=== PATIENT | female | born 1965 | race Caucasian/White ===

== ENCOUNTER 2018-04-15 09:30 | Inpatient (IN) | payer OTHER ==
--- NOTE | 2018-04-15 09:37 | ED ---
General Adult HPI - General Stated complaint: chest pain Time Seen by Provider: 04/15/18 09:34 Source: patient, EMS, RN notes reviewed, old records reviewed - History of Present Illness Initial comments: 52-year-old female with history of coronary artery bypass graft approximately 3 years ago presents for sudden onset chest pain. Patient has been dealing with constipation, she was on the toilet straining for bowel movement and developed sharp substernal chest pain which radiated to her neck. She states that pain in her neck was more of a pressure but her chest pain was very sharp. She was complaining of some nausea, no vomiting. Endocrine the patient she was very diaphoretic. EMS transported the patient, initial blood pressure was 190 systolic, patient was 10 out of 10 pain and diaphoretic. Pain is subsided at this time after nitroglycerin. She states that her first heart attack was similar to this pain although she did have some squeezing pain and pressure in her neck with her second heart attack. Patient states her pain is improved at this time. She has no abdominal pain. No back pain. No radiating pain to her arms. Patient is a current smoker. - Related Data Home Medications Medication Instructions Recorded Confirmed ALPRAZolam [Xanax] 0.5 mg PO BID 04/15/18 04/15/18 Ciprofloxacin HCl [Cipro] 500 mg PO Q12HR 04/15/18 04/15/18 Furosemide [Lasix] 40 mg PO BID 04/15/18 04/15/18 HYDROcodone/APAP 10-325MG [[place] 1 tab PO Q6HR PRN 04/15/18 04/15/18 10-325] Ibuprofen [Motrin] 600 mg PO Q6HR PRN 04/15/18 04/15/18 Lisinopril [Zestril] 20 mg PO BID 04/15/18 04/15/18 Metoprolol Tartrate [Lopressor] 100 mg PO BID 04/15/18 04/15/18 Simvastatin [Zocor] 10 mg PO HS 04/15/18 04/15/18 amLODIPine [Norvasc] 5 mg PO DAILY 04/15/18 04/15/18 Allergies Allergy/AdvReac Type Severity Reaction Status Date / Time clopidogrel [From Plavix] Allergy Rash/Hives Verified 04/15/18 10:10 sulfamethoxazole Allergy Vomiting Verified 04/15/18 10:10 [From Bactrim] Tetracyclines Allergy Vomiting Verified 04/15/18 10:10 trimethoprim [From Bactrim] Allergy Vomiting Verified 04/15/18 10:10 Review of Systems ROS Statement: Those systems with pertinent positive or pertinent negative responses have been documented in the HPI. ROS Other: All systems not noted in ROS Statement are negative. General Exam General appearance: alert, in no apparent distress Head exam: Present: atraumatic, normocephalic Eye exam: Present: normal appearance, PERRL Neck exam: Present: normal inspection. Absent: tenderness, meningismus Respiratory exam: Present: normal lung sounds bilaterally. Absent: respiratory distress, wheezes Cardiovascular Exam: Present: regular rate, normal rhythm GI/Abdominal exam: Present: soft. Absent: distended, tenderness Extremities exam: Present: normal inspection, normal capillary refill. Absent: pedal edema Neurological exam: Present: alert, oriented X3, CN II-XII intact. Absent: motor sensory deficit Psychiatric exam: Present: normal affect, normal mood Skin exam: Present: warm, intact, diaphoretic. Absent: cyanosis Course Vital Signs 04/15/18 04/15/18 04/15/18 09:41 10:15 11:40 Temperature 98.2 F Pulse Rate 60 54 L 58 L Respiratory 18 18 18 Rate Blood Pressure 130/72 117/79 114/71 O2 Sat by Pulse 98 99 Oximetry - Reevaluation(s) Reevaluation #1: 04/15/18 12:30 On reevaluation, patient's blood pressure stable, she has minimal pain. EKG Findings - EKG Comments: EKG Findings:: EKG shows sinus bradycardia with inferior infarct, Q wave and T wave inversion. No ST segment elevation. Rate of 53 [place] interval 152, QRS duration 102, QTC 399 this Q waves and T-wave inversion in inferior leads is new compared to EKG in January. Medical Decision Making - Medical Decision Making 52-year-old female presenting with sudden onset of sharp anterior chest pain. According to EMS the patient was diaphoretic and hypertensive. Given the sudden onset of sharp pain, CT angiography was obtained, this is negative for dissection or aneurysm. Patient's EKG does show ischemic changes. Laboratory studies reveal normal hemoglobin of 14.4, white blood cell count mildly elevated total 0.7, troponin is mildly elevated at 0.04, electrolytes within normal limits. Patient is placed on heparin, given aspirin. She is nearly chest pain-free on reevaluation. She will be admitted for serial cardiac enzymes and cardiology consultation. Case discussed with Dr. Sutton, he will accept admission - Lab Data Result diagrams: 04/15/18 09:57 04/15/18 09:57 Lab Results 04/15/18 04/15/18 04/15/18 Range/Units 09:57 09:57 09:57 WBC 12.7 H (3.8-10.6) k/uL RBC 5.00 (3.80-5.40) m/uL Hgb 14.4 (11.4-16.0) gm/dL Hct 44.0 (34.0-46.0) % MCV 88.1 (80.0-100.0) fL MCH 28.8 (25.0-35.0) pg MCHC 32.7 (31.0-37.0) g/dL RDW 14.5 (11.5-15.5) % Plt Count 457 H (150-450) k/uL Neutrophils % 64 % Lymphocytes % 24 % Monocytes % 7 % Eosinophils % 4 % Basophils % 0 % Neutrophils # 8.1 H (1.3-7.7) k/uL Lymphocytes # 3.0 (1.0-4.8) k/uL Monocytes # 0.9 (0-1.0) k/uL Eosinophils # 0.5 (0-0.7) k/uL Basophils # 0.1 (0-0.2) k/uL PT (9.0-12.0) sec INR (<1.2) APTT (22.0-30.0) sec Sodium 141 (137-145) mmol/L Potassium 4.0 (3.5-5.1) mmol/L Chloride 106 (98-107) mmol/L Carbon Dioxide 24 (22-30) mmol/L Anion Gap 11 mmol/L BUN 21 H (7-17) mg/dL Creatinine 0.73 (0.52-1.04) mg/dL Est GFR (CKD-EPI)AfAm >90 (>60 ml/min/1.73 sqM) Est GFR (CKD-EPI)NonAf >90 (>60 ml/min/1.73 sqM) Glucose 100 H (74-99) mg/dL Calcium 9.6 (8.4-10.2) mg/dL Magnesium 2.1 (1.6-2.3) mg/dL Total Bilirubin 0.4 (0.2-1.3) mg/dL AST 22 (14-36) U/L ALT 33 (9-52) U/L Alkaline Phosphatase 77 (38-126) U/L Total Creatine Kinase 53 (30-135) U/L CK-MB (CK-2) 0.5 (0.0-2.4) ng/mL CK-MB (CK-2) Rel Index 0.9 Troponin I 0.040 H* (0.000-0.034) ng/mL NT-Pro-B Natriuret Pep pg/mL Total Protein 6.4 (6.3-8.2) g/dL Albumin 3.8 (3.5-5.0) g/dL Lipase 103 (23-300) U/L 04/15/18 04/15/18 Range/Units 09:57 09:57 WBC (3.8-10.6) k/uL RBC (3.80-5.40) m/uL Hgb (11.4-16.0) gm/dL Hct (34.0-46.0) % MCV (80.0-100.0) fL MCH (25.0-35.0) pg MCHC (31.0-37.0) g/dL RDW (11.5-15.5) % Plt Count (150-450) k/uL Neutrophils % % Lymphocytes % % Monocytes % % Eosinophils % % Basophils % % Neutrophils # (1.3-7.7) k/uL Lymphocytes # (1.0-4.8) k/uL Monocytes # (0-1.0) k/uL Eosinophils # (0-0.7) k/uL Basophils # (0-0.2) k/uL PT 9.8 (9.0-12.0) sec INR 1.0 (<1.2) APTT 24.3 (22.0-30.0) sec Sodium (137-145) mmol/L Potassium (3.5-5.1) mmol/L Chloride (98-107) mmol/L Carbon Dioxide (22-30) mmol/L Anion Gap mmol/L BUN (7-17) mg/dL Creatinine (0.52-1.04) mg/dL Est GFR (CKD-EPI)AfAm (>60 ml/min/1.73 sqM) Est GFR (CKD-EPI)NonAf (>60 ml/min/1.73 sqM) Glucose (74-99) mg/dL Calcium (8.4-10.2) mg/dL Magnesium (1.6-2.3) mg/dL Total Bilirubin (0.2-1.3) mg/dL AST (14-36) U/L ALT (9-52) U/L Alkaline Phosphatase (38-126) U/L Total Creatine Kinase (30-135) U/L CK-MB (CK-2) (0.0-2.4) ng/mL CK-MB (CK-2) Rel Index Troponin I (0.000-0.034) ng/mL NT-Pro-B Natriuret Pep 168 pg/mL Total Protein (6.3-8.2) g/dL Albumin (3.5-5.0) g/dL Lipase (23-300) U/L Critical Care Time Critical Care Time: Yes Total Critical Care Time: 35 Disposition Clinical Impression: NSTEMI (non-ST elevated myocardial infarction) Disposition: ADMITTED IP TO THIS [facility] Condition: Stable Is patient prescribed a controlled substance at d/c from ED?: No Referrals: Govind Houser MD [Primary Care Provider] - 1-2 days Decision to Admit Reason: Admit from EC Decision Date: 04/15/18 Decision Time: 12:33
[2018-04-15 10:22] LABS: Basophils # (A) 0.1 k/uL (0-0.2); Basophils % (A) 0 %; Eosinophils # (A) 0.5 k/uL (0-0.7); Eosinophils % (A) 4 %; HGB 14.4 gm/dL (11.4-16.0); Lymphocytes % (A) 24 %; MCH 28.8 pg (25.0-35.0); MCHC 32.7 g/dL (31.0-37.0); MCV 88.1 fL (80.0-100.0); Mean Platelet Volume 6.7; Monocytes # (A) 0.9 k/uL (0-1.0); Monocytes % (A) 7 %; Neutrophils # (A) 8.1 k/uL (1.3-7.7); Neutrophils % (A) 64 %; Platelet Count 457 k/uL (150-450); RDW 14.5 % (11.5-15.5); WBC 12.7 k/uL (3.8-10.6)
[2018-04-15 10:31] LABS: Partial Thromboplastin Time 24.3 sec (22.0-30.0); Prothrombin Time 9.8 sec (9.0-12.0)
--- NOTE | 2018-04-15 10:31 | XR ---
EXAMINATION TYPE: XR chest 2V DATE OF EXAM: 04/15/2018 COMPARISON: NONE INDICATION: Chest pain TECHNIQUE: Frontal and lateral views of the chest are obtained. FINDINGS: The heart size is normal. The pulmonary vasculature is normal. The lungs are clear. Sternotomy wires are present from previous CABG IMPRESSION: 1. No acute pulmonary process.
[2018-04-15 10:35] LABS: ALT 33 U/L (9-52); AST 22 U/L (14-36); Albumin 3.8 g/dL (3.5-5.0); Alkaline Phosphatase 77 U/L (38-126); Anion Gap 11 mmol/L; Blood Urea Nitrogen 21 mg/dL (7-17); Calcium 9.6 mg/dL (8.4-10.2); Carbon Dioxide 24 mmol/L (22-30); Chloride 106 mmol/L (98-107); Glucose 100 mg/dL (74-99); Lipase 103 U/L (23-300); Magnesium 2.1 mg/dL (1.6-2.3); Sodium 141 mmol/L (137-145); Total Bilirubin 0.4 mg/dL (0.2-1.3); Total Protein 6.4 g/dL (6.3-8.2)
[2018-04-15] MEDS ORDERED: RX INFO: IV CONTRAST WAS GIVEN 1 EACH MISC MISCELLANE PRN (10:51)
[2018-04-15 11:04] LABS: Creatine Kinase MB 0.5 ng/mL (0.0-2.4)
[2018-04-15 11:09] LABS: Troponin I 0.04 ng/mL (0.000-0.034)
--- NOTE | 2018-04-15 11:58 | CT ---
EXAMINATION TYPE: CT angio thoracic/abd aorta DATE OF EXAM: 04/15/2018 COMPARISON: NONE HISTORY: Chest pain CT DLP: 1048.4 mGycm CONTRAST: CTA thoracic and abdominal aorta with 3-D reconstruction is performed and without and with IV Contras t, patient injected with 100 ml mL of Isovue 370. Contrast CTA of the thoracic and abdominal aorta was performed from the lung apex through the base of the pelvis. 3-D reconstruction imaging obtained at a separate workstation. CT Chest: THORACIC AORTA: There is no evidence for aneurysm. No dissection or mediastinal hematoma. Mild ath eromatous changes are seen. LUNGS: The lungs are clear and free of infiltrate or atelectasis. No pulmonary nodule or mass is det ected. No pleural effusion or CT evidence of interstitial lung disease. MEDIASTINUM: The heart is not enlarged. No evidence for mediastinal mass or adenopathy. HILAR STRUCTURES: No evidence for mass. No hilar adenopathy is appreciated. OTHER: No significant abnormality. CONTRAST CT ABDOMEN AND PELVIS ABDOMINAL AORTA: No evidence for abdominal aortic aneurysm. There is irregular soft plaque noted thr oughout the abdominal aorta. Bilateral common iliac artery stents are in place. Atheromatous changes are seen throughout the bilateral iliac vessels No dissection. LIVER/GB- No significant abnormality is seen. Cholecystectomy clips are in place. PANCREAS- No significant abnormality is seen. SPLEEN- No significant abnormality is seen. ADRENALS- No significant abnormality is seen. KIDNEYS/BLADDER-nonobstructing left-sided renal calculi seen. BOWEL- No Significant abnormality GENITAL ORGANS: No gross abnormality seen. LYMPH NODES- No greater than 1cm abdominal or pelvic lymph nodes areappreciated. OSSEOUS STRUCTURES- No significant abnormality is seen. OTHER- No significant abnormality is seen. IMPRESSION- 1. No evidence for aneurysm or dissection. 2. Soft plaque scattered throughout the abdominal aorta.
[2018-04-15] MEDS ORDERED: HEPARIN SODIUM,PORCINE 5,000 UNIT/ML 1 ML VIAL IV ONE (12:06)
[2018-04-15] MEDS ORDERED: HEPARIN SODIUM,PORCINE 5,000 UNIT/ML 1 ML VIAL IV PRN (12:06)
[2018-04-15] MEDS ORDERED: ASPIRIN 325 MG TAB PO STA (12:28)
[2018-04-15] MEDS: HEPARIN SODIUM,PORCINE/D5W PMX 25,000 UNIT in DEXTROSE/WATER 1 500ML.BAG IV SCH (12:28)
[2018-04-15] MEDS ORDERED: NALOXONE 0.4 MG/ML 1 ML VIAL IV PRN (12:28)
[2018-04-15] MEDS ORDERED: NITROGLYCERIN SL TABS 0.4 MG TAB SUBLINGUAL PRN (12:28)
[2018-04-15] MEDS ORDERED: MORPHINE SULFATE 2 MG/ML SYRINGE IV PRN (12:28)
[2018-04-15] MEDS ORDERED: IBUPROFEN 600 MG TAB PO PRN (12:57)
--- NOTE | 2018-04-15 15:03 | P.HPIM ---
History of Present Illness H&P Date: 04/15/18 Chief Complaint: Chest pain This is a 52-year-old female patient of Dr. Houser with past medical history of coronary artery disease status post 5 vessel CABG at [facility], hypertension, hyperlipidemia, frequent urinary tract infections, migraine headaches, fibromyalgia, anxiety. 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 Patient states that she has had trouble with kidney stones and has been taking [place] and was having constipation issues use a fleets enema when she was in the bathroom she developed chest pain that was tightness along with sweats. He denies having any chest pain with physical activity prior to this. EMS obtained a systolic blood pressure of 190 and her pain was a 10 out of 10. Patient states that her pain improved after receiving 3 nitroglycerin and aspirin. In the emergency center, her white count was 12.7 , hemoglobin 14.4, platelet count 457, creatinine was 0.73. Initial troponin was 0.043. She was afebrile. She was started on a heparin drip, aspirin, nitroglycerin sublingually and morphine and admitted to the selective care unit and cardiology consult was requested. Review of Systems All systems: negative Constitutional: Denies anorexia, Denies chills, Denies fever, Denies lethargy, Denies malaise, Denies poor appetite, Denies weakness Eyes: denies blurred vision, denies pain Ears, nose, mouth and throat: Denies dental pain, Denies headache, Denies mouth pain, Denies sore throat, Denies vertigo Cardiovascular: Reports chest pain, Denies decreased exercise tolerance, Denies dyspnea on exertion, Denies edema, Denies leg edema, Denies shortness of breath , Denies syncope Respiratory: Denies cough, Denies cough with sputum, Denies dyspnea, Denies excessive sputum, Denies hemoptysis, Denies home oxygen, Denies wheezing Gastrointestinal: Denies abdominal pain, Denies diarrhea, Denies nausea, Denies vomiting Genitourinary: Denies dysuria, Denies hematuria Musculoskeletal: Denies myalgias Integumentary: Denies pruritus, Denies rash Neurological: Denies numbness, Denies weakness Psychiatric: Denies anxiety, Denies depression Endocrine: Denies fatigue, Denies weight change Past Medical History Past Medical History: Coronary Artery Disease (CAD), Chest Pain / Angina, Hearing Disorder / Deafness, Hyperlipidemia, Hypertension, Myocardial Infarction (OK), Osteoarthritis (OA), Pneumonia, Renal Disease Additional Past Medical History / Comment(s): Pt states she is currently being tx with cipro for UTI, MIs in , occasional L leg edema since CABG with L leg vein harvesting, recurrent nephrolithiasis with surgical removal, past utis, arthritis bilateral hands and L knee, deaf L ear. Last Myocardial Infarction Date:: 2014 History of Any Multi-Drug Resistant Organisms: None Reported Past Surgical History: Adenoidectomy, Section, Cholecystectomy, Coronary Bypass/CABG, Heart Catheterization, Heart Catheterization With Stent, Hysterectomy, Tonsillectomy, Tubal Ligation Additional Past Surgical History / Comment(s): 11/2014 CABG 5 vessels at [facility], PCIs with a total of 6 or 7 stents at [facility], lithotripsies x 3, colonoscopy-normal, bilateral knee arthroscopies, Past Anesthesia/Blood Transfusion Reactions: No Reported Reaction, Motion Sickness Date of Last Stent Placement:: unkn Smoking Status: Current every day smoker Additional Past Alcohol Use History / Comment(s): Patient is a smoker of three- quarter to 1 pack per day since she was 15 years of age. She denies any alcohol use. 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 - Past Family History Father History Unknown: Yes Additional Family Medical History / Comment(s): Patient does not know anything about her father and has no contact with him. Mother Family Medical History: Cancer, Congestive Heart Failure (CHF), Dementia, Diabetes Mellitus, Fibromyalgia, Skin Disorder Additional Family Medical History / Comment(s): Mother is alive at age 73 with history of Obesity, stasis dermatitis, breast cancer with bilateral mastectomies. Son(s) Additional Family Medical History / Comment(s): Patient has one son with no major medical problems. Patient does not have any brothers or sisters. Medications and Allergies Home Medications Medication Instructions Recorded Confirmed Type ALPRAZolam [Xanax] 0.5 mg PO BID 04/15/18 04/15/18 History Ciprofloxacin HCl [Cipro] 500 mg PO Q12HR 04/15/18 04/15/18 History Furosemide [Lasix] 40 mg PO BID 04/15/18 04/15/18 History HYDROcodone/APAP 10-325MG [[place] 1 tab PO Q6HR PRN 04/15/18 04/15/18 History 10-325] Ibuprofen [Motrin] 600 mg PO Q6HR PRN 04/15/18 04/15/18 History Lisinopril [Zestril] 20 mg PO BID 04/15/18 04/15/18 History Metoprolol Tartrate [Lopressor] 100 mg PO BID 04/15/18 04/15/18 History Simvastatin [Zocor] 10 mg PO HS 04/15/18 04/15/18 History Tamsulosin HCl [Flomax] 0.4 mg PO DAILY 04/15/18 04/15/18 History amLODIPine [Norvasc] 5 mg PO DAILY 04/15/18 04/15/18 History Allergies Allergy/AdvReac Type Severity Reaction Status Date / Time clopidogrel [From Plavix] Allergy Rash/Hives Verified 04/15/18 10:10 sulfamethoxazole Allergy Vomiting Verified 04/15/18 10:10 [From Bactrim] Tetracyclines Allergy Vomiting Verified 04/15/18 10:10 trimethoprim [From Bactrim] Allergy Vomiting Verified 04/15/18 10:10 Physical Exam Vitals: Vital Signs Temp Pulse Pulse Resp BP BP Pulse Ox 04/15/18 13:25 96.9 F L 64 16 131/83 100 04/15/18 13:02 97.4 F L 04/15/18 11:40 58 L 18 114/71 99 04/15/18 10:15 54 L 18 117/79 04/15/18 09:41 98.2 F 60 18 130/72 98 Intake and Output 04/14/18 04/15/18 04/15/18 22:59 06:59 14:59 Other: Weight 68.039 kg Gen: This is a 52-year-old female patient. She is sitting up in bed and appears to be comfortable and in no acute distress. Patient is currently pain-free. HEENT: Head is atraumatic, normocephalic. Pupils equal, round. Sclerae is anicteric. NECK: Supple. No JVD. No lymphadenopathy. No thyromegaly. LUNGS: Clear to auscultation. No wheezes or rhonchi. No intercostal retractions. HEART: Regular rate and rhythm. Systolic murmur. ABDOMEN: Soft. Bowel sounds are present. No masses. No tenderness. EXTREMITIES: No pedal edema. No calf tenderness. Dorsalis pedis +2 bilaterally. NEUROLOGICAL: Patient is awake, alert and oriented x3. Cranial nerves 2 through 12 are grossly intact. Results CBC & Chem 7: 04/15/18 09:57 04/15/18 09:57 Labs: Abnormal Lab Results - Last 24 Hours (Table) 04/15/18 04/15/18 04/15/18 Range/Units 09:57 09:57 09:57 WBC 12.7 H (3.8-10.6) k/uL Plt Count 457 H (150-450) k/uL Neutrophils # 8.1 H (1.3-7.7) k/uL BUN 21 H (7-17) mg/dL Glucose 100 H (74-99) mg/dL Troponin I 0.040 H* (0.000-0.034) ng/mL Thrombosis Risk Factor Assmnt - DVT/VTE Prophylaxis DVT/VTE Prophylaxis: Pharmacologic Prophylaxis ordered - Choose All That Apply Any of the Below Risk Factors Present?: Yes Each Factor Represents 1 point: Acute [place], Age 41-60 years Other Risk Factors: No Other congenital or acquired thrombophilia - If yes, enter type in comment: No Thrombosis Risk Factor Assessment Total Risk Factor Score: 2 Thrombosis Risk Factor Assessment Level: Low Risk Assessment and Plan Plan: 1. Chest pain with mild elevation of initial troponin with possible non-ST elevated myocardial infarction. Serial troponins will be ordered, cardiology consult. Patient had echocardiogram 1 month ago and the office with Dr. Solomon as well as a 30 day event monitor. Heparin drip, sublingual nitroglycerin, aspirin and morphine have been started. 2. Hypertension, accelerated. This may be cause of patient's chest pain. Continue Norvasc 5 mg daily, Lasix 40 mg twice daily, lisinopril 20 mg twice daily, Lopressor 100 mg twice daily. 3. Hyperlipidemia. Continue Lipitor 10 mg at bedtime. 4. History of coronary artery disease with 5 vessel CABG done at [facility]. 5. History of migraine headaches. 6. Fibromyalgia, stable. 7. Generalized anxiety disorder. Continue Xanax 0.5 mg twice daily as needed. 8. Current treatment for urinary tract infection. Continue Cipro. 9. DVT prophylaxis. Patient is on heparin. 10. GI prophylaxis. Pepcid. Patient will be admitted to the hospital for a minimum of 2 night stay. Discharge plan: Return home Impression and plan of care have been directed as dictated by the signing physician. Kelly Hunt nurse practitioner acting as scribe for signing physician.
[2018-04-15 16:24] LABS: Creatine Kinase MB 0.5 ng/mL (0.0-2.4)
[2018-04-15 16:27] LABS: Troponin I 0.063 ng/mL (0.000-0.034)
[2018-04-15] MEDS: FUROSEMIDE 40 MG TAB PO SCH (19:58)
[2018-04-15] MEDS: HYDROcodone/APAP 10-325MG 1 EACH TAB PO PRN (19:59)
[2018-04-15] MEDS: METOPROLOL TARTRATE 50 MG TAB PO SCH (19:59)
[2018-04-15] MEDS: LISINOPRIL 20 MG TAB PO SCH (19:59)
[2018-04-15] MEDS ORDERED: ATORVASTATIN 10 MG TAB PO SCH (21:00)
[2018-04-15] MEDS: ALPRAZolam 0.5 MG TAB PO SCH (21:00)
[2018-04-15 22:47] LABS: Creatine Kinase MB 0.5 ng/mL (0.0-2.4)
[2018-04-15 23:03] LABS: Troponin I 0.067 ng/mL (0.000-0.034)
[2018-04-16] MEDS ORDERED: HEPARIN SODIUM,PORCINE 5,000 UNIT/ML 1 ML VIAL ONE (01:55)
--- NOTE | 2018-04-16 08:21 | ECHOF ---
Referral Reason:Chest pain/elevated trop MEASUREMENTS -------- HEIGHT: 167.6 cm WEIGHT: 68.0 kg BP: 114/71 RVIDd: 1.8 cm (< 3.3) IVSd: 1.1 cm (0.6 - 1.1) LVIDd: 5.1 cm (3.9 - 5.3) LVPWd: 1.1 cm (0.6 - 1.1) IVSs: 1.4 cm LVIDs: 3.3 cm LVPWs: 1.4 cm LAESV Index (A-L): 29.06 ml/m Ao Diam: 2.9 cm (2.0 - 3.7) AV Cusp: 1.6 cm (1.5 - 2.6) LA Diam: 3.8 cm (2.7 - 3.8) EPSS: 1.3 cm MV E Spenser: 1.10 m/s MV DecT: 310 ms MV A Spenser: 0.73 m/s MV E/A Ratio: 1.50 RAP: 5.00 mmHg RVSP: 25.37 mmHg MV EF SLOPE: 133.96 mm/s (70 - 150) MV EXCURSION: 2.14 cm (> 18.000) FINDINGS -------- Sinus rhythm. This was a technically adequate study. The left ventricular size is normal. There is borderline concentric left ventricular hypertrophy. Overall left ventricular systolic function is normal with, an EF between 55 - 60 %. The right ventricle is normal in size and function. LA is midly dilated 29-33ml/m2. The right atrium is normal in size. The aortic valve is trileaflet, and appears structurally normal. No aortic stenosis or regurgitation. The mitral valve is normal. Mild mitral regurgitation is present. Mild tricuspid regurgitation present. Right ventricular systolic pressure is normal at < 35 mmHg. There is no evidence of pulmonary hypertension. Trace/mild (physiologic) pulmonic regurgitation. The aortic root size is normal. Normal inferior vena cava with normal inspiratory collapse consistent with estimated right atrial pre ssure of 5 mmHg. There is no pericardial effusion. CONCLUSIONS -------- 1. Sinus rhythm. 2. This was a technically adequate study. 3. The left ventricular size is normal. 4. There is borderline concentric left ventricular hypertrophy. 5. Overall left ventricular systolic function is normal with, an EF between 55 - 60 %. 6. LA is midly dilated 29-33ml/m2. 7. The aortic valve is trileaflet, and appears structurally normal. No aortic stenosis or regurgitati on. 8. Mild mitral regurgitation is present. 9. Mild tricuspid regurgitation present. 10. Right ventricular systolic pressure is normal at < 35 mmHg. 11. Trace/mild (physiologic) pulmonic regurgitation. 12. The aortic root size is normal. 13. There is no pericardial effusion. RIM ROLLER OPERATOR: Edmond Skaggs RDCS
--- NOTE | 2018-04-16 08:27 | P.CRDCN ---
History of Present Illness Consult date: 04/16/18 Requesting physician: Andrey Sutton Consult reason: non-Q-wave NM Chief complaint: Chest pain History of present illness: His is a 52-year-old female who follows with Dr. Solomon in the office. She has known history of coronary artery disease with prior bypass surgery which she states was performed at [facility] approximately 3 years ago patient also has history of prior stent placement, hypertension, nicotine dependence, hyperlipidemia, she presents to the hospital with symptoms of chest discomfort. According to the patient she had been constipated for a few days, she picked up a fleets enema, states that she used it and then went to try and have a bowel movement, she does state that she was straining a significant amount shortly thereafter developed chest pain, she does state that the pain was sharp in nature but she also had a heaviness, became extremely diaphoretic. She does state that the pain reminded her of what she had prior to her bypass surgery. Patient overall has been doing fairly well, she has not had any chest pain since her bypass surgery. EKG performed on admission here showed a sinus bradycardia with inferior ST-T wave changes. Subsequent EKG performed this morning shows sinus bradycardia with inferior ST-T wave changes. Chest x-ray does not show any acute pulmonary process. CT was performed which did not reveal any evidence for aneurysm or dissection, off plaques scattered throughout the abdominal aorta. Patient does have chronic UTIs for which she has been using [place], she thinks this may be was what made her so constipated prior to all this occurring. She took an aspirin at home, on EMS arrival she was given 3 baby aspirin's as well as 2 sublingual nitroglycerin with relief of symptoms. At the time of my examination this morning she is currently chest pain-free. The pressure on arrival here 130/70 with a heart rate in the 50s to 60s, 98% on room air. White blood cell count 12.7, hemoglobin 14.4, platelet count 457. Sodium 141, potassium 4.0, BUN 21 and creatinine 0.7. Troponin 0.04, 0.06, 0.06. Patient recently had an echocardiogram with Doppler study performed in the office which revealed normal LV function without any significant valvular abnormalities. Patient also had an event monitor because of palpitations, no significant arrhythmias were noted. Past Medical History Past Medical History: Coronary Artery Disease (CAD), Chest Pain / Angina, Hearing Disorder / Deafness, Hyperlipidemia, Hypertension, Myocardial Infarction (NM), Osteoarthritis (OA), Pneumonia, Renal Disease Additional Past Medical History / Comment(s): Pt states she is currently being tx with cipro for UTI, MIs in , occasional L leg edema since CABG with L leg vein harvesting, recurrent nephrolithiasis with surgical removal, past utis, arthritis bilateral hands and L knee, deaf L ear. Last Myocardial Infarction Date:: 2014 History of Any Multi-Drug Resistant Organisms: None Reported Past Surgical History: Adenoidectomy, Section, Cholecystectomy, Coronary Bypass/CABG, Heart Catheterization, Heart Catheterization With Stent, Hysterectomy, Tonsillectomy, Tubal Ligation Additional Past Surgical History / Comment(s): 11/2014 CABG 5 vessels at [facility], PCIs with a total of 6 or [address] [facility], lithotripsies x 3, colonoscopy-normal, bilateral knee arthroscopies, Past Anesthesia/Blood Transfusion Reactions: No Reported Reaction, Motion Sickness Date of Last Stent Placement:: unkn Smoking Status: Current every day smoker Additional Past Alcohol Use History / Comment(s): Patient is a smoker of three- quarter to 1 pack per day since she was 15 years of age. She denies any alcohol use. 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 - Past Family History Father History Unknown: Yes Additional Family Medical History / Comment(s): Patient does not know anything about her father and has no contact with him. Mother Family Medical History: Cancer, Congestive Heart Failure (CHF), Dementia, Diabetes Mellitus, Fibromyalgia, Skin Disorder Additional Family Medical History / Comment(s): Mother is alive at age 73 with history of Obesity, stasis dermatitis, breast cancer with bilateral mastectomies. Son(s) Additional Family Medical History / Comment(s): Patient has one son with no major medical problems. Patient does not have any brothers or sisters. Medications and Allergies Home Medications Medication Instructions Recorded Confirmed Type ALPRAZolam [Xanax] 0.5 mg PO BID 04/15/18 04/15/18 History Ciprofloxacin HCl [Cipro] 500 mg PO Q12HR 04/15/18 04/15/18 History Furosemide [Lasix] 40 mg PO BID 04/15/18 04/15/18 History HYDROcodone/APAP 10-325MG [[place] 1 tab PO Q6HR PRN 04/15/18 04/15/18 History 10-325] Ibuprofen [Motrin] 600 mg PO Q6HR PRN 04/15/18 04/15/18 History Lisinopril [Zestril] 20 mg PO BID 04/15/18 04/15/18 History Metoprolol Tartrate [Lopressor] 100 mg PO BID 04/15/18 04/15/18 History Simvastatin [Zocor] 10 mg PO HS 04/15/18 04/15/18 History Tamsulosin HCl [Flomax] 0.4 mg PO DAILY 04/15/18 04/15/18 History amLODIPine [Norvasc] 5 mg PO DAILY 04/15/18 04/15/18 History Allergies Allergy/AdvReac Type Severity Reaction Status Date / Time clopidogrel [From Plavix] Allergy Rash/Hives Verified 04/15/18 10:10 sulfamethoxazole Allergy Vomiting Verified 04/15/18 10:10 [From Bactrim] Tetracyclines Allergy Vomiting Verified 04/15/18 10:10 trimethoprim [From Bactrim] Allergy Vomiting Verified 04/15/18 10:10 Physical Exam Vitals: Vital Signs Temp Pulse Pulse Resp BP BP Pulse Ox 04/16/18 04:00 96.8 F L 55 L 16 122/63 99 04/15/18 23:24 61 16 04/15/18 23:22 97.7 F 61 16 113/64 97 04/15/18 19:52 97.0 F L 67 16 119/61 95 04/15/18 19:50 67 16 04/15/18 16:50 74 16 159/78 98 04/15/18 13:25 96.9 F L 64 16 131/83 100 04/15/18 13:02 97.4 F L 04/15/18 11:40 58 L 18 114/71 99 04/15/18 10:15 54 L 18 117/79 04/15/18 09:41 98.2 F 60 18 130/72 98 Intake and Output 04/15/18 04/16/18 04/16/18 22:59 06:59 14:59 Intake Total 406.896 140.829 Balance 406.896 140.829 Intake: Intake, IV Titration 106.896 140.829 Amount Heparin Sodium,Porcine/ 106.896 140.829 D5w Pmx 25,000 unit In Dextrose/Water 1 500ml. bag @ 12 UNITS/KG/HR 16. 32 mls/hr IV .Q24H [facility] Rx #:[id number] Oral 300 Other: Voiding Method Toilet Toilet # Voids 1 2 Weight 82.6 kg PHYSICAL EXAMINATION: GENERAL: This is a pleasant 52-year-old female in no apparent distress at the time of my examination. HEENT: Head is atraumatic, normocephalic. Pupils equal, round. Sclera anicteric. Conjunctiva are clear. Mucous membranes of the mouth are moist. Neck is supple. There is no elevated jugular venous pressure.] bruit is heard. HEART EXAMINATION: Heart S1 and S2 systolic murmur is heard. CHEST EXAMINATION: Lungs are clear to auscultation and precussion. No chest wall tenderness is noted on palpation or with deep breathing. ABDOMEN: Soft, nontender. Bowel sounds are heard. No organomegaly noted. EXTREMITIES: 2+ peripheral pulses with no evidence of peripheral edema and no calf tenderness noted. NEUROLOGIC patient is awake, alert and oriented -3. . Results 04/15/18 09:57 04/15/18 09:57 Cardiac Enzymes 04/15/18 04/15/18 04/15/18 Range/Units 09:57 09:57 15:34 AST 22 (14-36) U/L CK-MB (CK-2) 0.5 0.5 (0.0-2.4) ng/mL Troponin I 0.040 H* 0.063 H* (0.000-0.034) ng/mL 04/15/18 Range/Units 21:46 AST (14-36) U/L CK-MB (CK-2) 0.5 (0.0-2.4) ng/mL Troponin I 0.067 H* (0.000-0.034) ng/mL Coagulation 04/15/18 04/15/18 04/16/18 Range/Units 09:57 18:22 00:45 PT 9.8 (9.0-12.0) sec APTT 24.3 33.7 H 43.9 H (22.0-30.0) sec CBC 04/15/18 Range/Units 09:57 WBC 12.7 H (3.8-10.6) k/uL RBC 5.00 (3.80-5.40) m/uL Hgb 14.4 (11.4-16.0) gm/dL Hct 44.0 (34.0-46.0) % Plt Count 457 H (150-450) k/uL Comprehensive Metabolic Panel 04/15/18 Range/Units 09:57 Sodium 141 (137-145) mmol/L Potassium 4.0 (3.5-5.1) mmol/L Chloride 106 (98-107) mmol/L Carbon Dioxide 24 (22-30) mmol/L BUN 21 H (7-17) mg/dL Creatinine 0.73 (0.52-1.04) mg/dL Glucose 100 H (74-99) mg/dL Calcium 9.6 (8.4-10.2) mg/dL AST 22 (14-36) U/L ALT 33 (9-52) U/L Alkaline Phosphatase 77 (38-126) U/L Total Protein 6.4 (6.3-8.2) g/dL Albumin 3.8 (3.5-5.0) g/dL Current Medications Generic Name Dose Route Start Last Admin Trade Name Freq PRN Reason Stop Dose Admin Hydrocodone Bitart/Acetaminophen 1 each 04/15/18 12:57 04/15/18 19:59 [place] 10 PO 1 each Q6HR PRN Administration MODERATE Pain Alprazolam 0.5 mg 04/15/18 21:00 04/15/18 21:00 Xanax PO 0.5 mg BID KRISTEN Administration Amlodipine Besylate 5 mg 04/16/18 09:00 Norvasc PO DAILY KRISTEN Aspirin 81 mg 04/16/18 09:00 Aspirin PO DAILY KRISTEN Atorvastatin Calcium 10 mg 04/15/18 21:00 04/15/18 19:58 Lipitor PO 10 mg HS KRISTEN Administration Famotidine 20 mg 04/16/18 09:00 Pepcid PO DAILY KRISTEN Furosemide 40 mg 04/15/18 21:00 04/15/18 19:58 Lasix PO 40 mg BID KRISTEN Administration Heparin Sodium (Porcine) 0 unit 04/15/18 12:06 04/15/18 19:00 Heparin IV 3,400 unit PER PROTOCOL PRN Administration Low PTT Protocol Heparin Sodium/Dextrose 25,000 500 mls @ 16.32 mls/hr 04/15/18 12:15 01:55 unit/ IV Solution IV 17 units/kg/hr .Q24H KRISTEN 23.13 mls/hr Protocol Titration 12 UNITS/KG/HR Ibuprofen 600 mg 04/15/18 12:57 Motrin PO Q6HR PRN MILD Pain Lisinopril 20 mg 04/15/18 21:00 04/15/18 19:59 Zestril PO 20 mg BID KRISTEN Administration Metoprolol Tartrate 100 mg 04/15/18 21:00 04/15/18 19:59 Lopressor PO 100 mg BID KRISTEN Administration Miscellaneous Information 1 each 04/15/18 10:51 04/15/18 11:40 Rx Info: Iv Contrast Was Given MISCELLANE 04/17/18 10:51 1 each DAILY PRN Administration Per Protocol Morphine Sulfate 4 mg 04/15/18 12:28 Morphine Sulfate (Inj) IV Q4HR PRN Severe Pain Naloxone HCl 0.2 mg 04/15/18 12:28 Narcan IV Q2M PRN Opioid Reversal Nitroglycerin 0.4 mg 04/15/18 12:28 Nitrostat SUBLINGUAL Q5M PRN Chest Pain Intake and Output 04/15/18 04/16/18 04/16/18 22:59 06:59 14:59 Intake Total 406.896 140.829 Balance 406.896 140.829 Intake: Intake, IV Titration 106.896 140.829 Amount Heparin Sodium,Porcine/ 106.896 140.829 D5w Pmx 25,000 unit In Dextrose/Water 1 500ml. bag @ 12 UNITS/KG/HR 16. 32 mls/hr IV .Q24H [facility] Rx #:[id number] Oral 300 Other: Voiding Method Toilet Toilet # Voids 1 2 Weight 82.6 kg 04/15/18 09:57 04/15/18 09:57 EKG Interpretations (text) EKG shows a sinus bradycardia with inferior ST-T wave changes. Assessment and Plan Plan: Assessment and plan #1 chest discomfort with associated diaphoresis, abnormality in troponin, 0.04, 0.06, 0.06. EKG shows normal sinus rhythm with inferior ST-T wave changes. Suggesting non-Q-wave myocardial infarction. #2 known history of coronary artery disease with prior bypass surgery 3 years ago #3 prior stent placement #4 hypertension #5 hyperlipidemia #6 recurrent UTIs #7 anxiety #8 fibromyalgia Plan We will obtain an echocardiogram with Doppler study. Continue aspirin, IV heparin, lisinopril, metoprolol increased dose of Lipitor. Patient has been advised that she may need to undergo cardiac catheterization, the risks and the benefits were explained to the patient in detail and she is willing to proceed. DNP note has been reviewed, I agree with a documented findings and plan of care. Patient was seen and examined.
[2018-04-16 08:55] LABS: Basophils # (A) 0.1 k/uL (0-0.2); Basophils % (A) 1 %; Eosinophils # (A) 0.3 k/uL (0-0.7); Eosinophils % (A) 4 %; HCT 45.6 % (34.0-46.0); HGB 14.8 gm/dL (11.4-16.0); Lymphocytes # (A) 2.6 k/uL (1.0-4.8); Lymphocytes % (A) 29 %; MCH 29.2 pg (25.0-35.0); MCHC 32.5 g/dL (31.0-37.0); MCV 89.9 fL (80.0-100.0); Mean Platelet Volume 6.1; Monocytes # (A) 0.6 k/uL (0-1.0); Monocytes % (A) 7 %; Neutrophils # (A) 5.3 k/uL (1.3-7.7); Neutrophils % (A) 58 %; Platelet Count 460 k/uL (150-450); RBC 5.08 m/uL (3.80-5.40); RDW 14.9 % (11.5-15.5); WBC 9.1 k/uL (3.8-10.6)
[2018-04-16] MEDS ORDERED: ALPRAZolam 0.5 MG TAB PO PRN (11:07)
[2018-04-16] MEDS ORDERED: SODIUM CHLORIDE 0.9% 1,000 ML in EMPTY BAG 1 BAG IV ONE (11:07)
[2018-04-16] MEDS ORDERED: ATORVASTATIN 80 MG TAB PO STA (11:07)
[2018-04-16] MEDS ORDERED: NITROGLYCERIN SL TABS 0.4 MG TAB SUBLINGUAL PRN (11:07)
[2018-04-16] MEDS ORDERED: ALPRAZolam 0.25 MG TAB PO PRN (11:07)
[2018-04-16] MEDS ORDERED: ASPIRIN 325 MG TAB PO STA (11:07)
[2018-04-16] MEDS: amLODIPine 5 MG TAB PO SCH (11:30)
[2018-04-16] MEDS: FUROSEMIDE 40 MG TAB PO SCH ×2 (11:31→22:20)
[2018-04-16] MEDS: FAMOTIDINE 20 MG TAB PO SCH (11:31)
[2018-04-16] MEDS: METOPROLOL TARTRATE 50 MG TAB PO SCH (11:31)
[2018-04-16] MEDS: ASPIRIN 81 MG PO SCH (11:31)
[2018-04-16] MEDS: LISINOPRIL 20 MG TAB PO SCH ×2 (11:32→22:20)
[2018-04-16] MEDS: ALPRAZolam 0.5 MG TAB PO SCH ×2 (11:40→22:20)
--- NOTE | 2018-04-16 12:47 | P.PN ---
Subjective Progress Note Date: 04/16/18 This is a 52-year-old female patient of Dr. Houser with past medical history of coronary artery disease status post 5 vessel CABG at [facility], hypertension, hyperlipidemia, frequent urinary tract infections, migraine headaches, fibromyalgia, anxiety. Patient's taxicab coordinator is Dr. Solomon and she last saw him one month ago and had a 30 day monitor completed, echocardiogram. Patient states that she has had trouble with kidney stones and has been taking Sandy and was having constipation issues use a fleets enema when she was in the bathroom she developed chest pain that was tightness along with sweats. He denies having any chest pain with physical activity prior to this. EMS obtained a systolic blood pressure of 190 and her pain was a 10 out of 10. Patient states that her pain improved after receiving 3 nitroglycerin and aspirin. In the emergency center, her white count was 12.7 , hemoglobin 14.4, platelet count 457, creatinine was 0.73. Initial troponin was 0.043. She was afebrile. She was started on a heparin drip, aspirin, nitroglycerin sublingually and morphine and admitted to the selective care unit and cardiology consult was requested. 04/16: Patient has been evaluated by cardiology with recommendations to continue current medications and increase dose of Lipitor. Echocardiogram reveals borderline concentric left nuclear hypertrophy, EF 55-60%, LA mildly dilated at 29-33, no aortic stenosis or regurgitation, mild mitral regurgitation, mild tricuspid regurgitation, right ventricular systolic pressure is normal. Patient underwent CT angiogram thoracic and abdominal aorta that revealed no evidence of aneurysm or dissection. Soft plaque scattered throughout the abdominal aorta. Repeat troponins are 0.063 and 0.067. Patient is scheduled for heart catheterization on Friday. She did have a bowel movement this morning. Objective - Vital Signs Vital signs: Vital Signs Temp 96.8 F L 04/16/18 04:00 Pulse 55 L 04/16/18 04:00 Resp 16 04/16/18 04:00 BP 122/63 04/16/18 04:00 Pulse Ox 97 04/16/18 08:28 Intake & Output 04/15/18 04/16/18 04/16/18 18:59 06:59 18:59 Intake Total 547.725 Balance 547.725 Weight 68.039 kg 82.6 kg Intake: Intake, IV Titration 247.725 Amount Heparin Sodium,Porcine/ 247.725 D5w Pmx 25,000 unit In Dextrose/Water 1 500ml. bag @ 12 UNITS/KG/HR 16. 32 mls/hr IV .Q24H [facility] Rx #:[id number] Oral 300 Other: Voiding Method Toilet # Voids 2 - Exam Gen: This is a 52-year-old female patient. She is sitting up in bed and appears to be comfortable and in no acute distress. Patient is currently pain-free. HEENT: Head is atraumatic, normocephalic. Pupils equal, round. Sclerae is anicteric. NECK: Supple. No JVD. No lymphadenopathy. No thyromegaly. LUNGS: Clear to auscultation. No wheezes or rhonchi. No intercostal retractions. HEART: Regular rate and rhythm. Systolic murmur. ABDOMEN: Soft. Bowel sounds are present. No masses. No tenderness. EXTREMITIES: No pedal edema. No calf tenderness. Dorsalis pedis +2 bilaterally. NEUROLOGICAL: Patient is awake, alert and oriented x3. Cranial nerves 2 through 12 are grossly intact. - Labs CBC & Chem 7: 04/16/18 08:36 04/15/18 09:57 Labs: Abnormal Lab Results - Last 24 Hours (Table) 04/15/18 04/15/18 04/15/18 Range/Units 09:57 09:57 09:57 WBC 12.7 H (3.8-10.6) k/uL Plt Count 457 H (150-450) k/uL Neutrophils # 8.1 H (1.3-7.7) k/uL APTT (22.0-30.0) sec BUN 21 H (7-17) mg/dL Glucose 100 H (74-99) mg/dL Troponin I 0.040 H* (0.000-0.034) ng/mL 04/15/18 04/15/18 04/15/18 Range/Units 15:34 18:22 21:46 WBC (3.8-10.6) k/uL Plt Count (150-450) k/uL Neutrophils # (1.3-7.7) k/uL APTT 33.7 H (22.0-30.0) sec BUN (7-17) mg/dL Glucose (74-99) mg/dL Troponin I 0.063 H* 0.067 H* (0.000-0.034) ng/mL 04/16/18 Range/Units 00:45 WBC (3.8-10.6) k/uL Plt Count (150-450) k/uL Neutrophils # (1.3-7.7) k/uL APTT 43.9 H (22.0-30.0) sec BUN (7-17) mg/dL Glucose (74-99) mg/dL Troponin I (0.000-0.034) ng/mL Assessment and Plan Plan: 1. Chest pain with mild elevation of initial troponin with possible non-ST elevated myocardial infarction. Serial troponins as above, cardiology consult is appreciated. Patient had echocardiogram 1 month ago and the office with Dr. Solomon as well as a 30 day event monitor. Heparin drip, sublingual nitroglycerin, aspirin and morphine have been started. Repeat echocardiogram as above. Heart catheterization tomorrow. 2. Hypertension, accelerated. This may be cause of patient's chest pain. Continue Norvasc 5 mg daily, Lasix 40 mg twice daily, lisinopril 20 mg twice daily, Lopressor 100 mg twice daily. 3. Hyperlipidemia. Continue Lipitor 10 mg at bedtime. 4. History of coronary artery disease with 5 vessel CABG done at [facility]. 5. History of migraine headaches. 6. Fibromyalgia, stable. 7. Generalized anxiety disorder. Continue Xanax 0.5 mg twice daily as needed. 8. Current treatment for urinary tract infection. Continue Cipro. 9. DVT prophylaxis. Patient is on heparin. 10. GI prophylaxis. Pepcid. Discharge plan: Return home Impression and plan of care have been directed as dictated by the signing physician. Kelly Hunt nurse practitioner acting as scribe for signing physician.
[2018-04-16] MEDS: HYDROcodone/APAP 10-325MG 1 EACH TAB PO PRN ×2 (13:11→20:42)
[2018-04-16] MEDS: HEPARIN SODIUM,PORCINE/D5W PMX 25,000 UNIT in DEXTROSE/WATER 1 500ML.BAG IV SCH (14:25)
[2018-04-16] MEDS: ATORVASTATIN 80 MG TAB PO SCH (22:20)
[2018-04-17] MEDS ORDERED: ASPIRIN 325 MG TAB PO ONE (06:00)
[2018-04-17] MEDS ORDERED: ATORVASTATIN 80 MG TAB PO ONE (06:00)
[2018-04-17] MEDS ORDERED: SODIUM CHLORIDE 0.9% 1,000 ML in EMPTY BAG 1 BAG IV ONE (06:00)
[2018-04-17] MEDS: ASPIRIN 81 MG PO SCH (06:38)
[2018-04-17] MEDS: amLODIPine 5 MG TAB PO SCH (06:38)
[2018-04-17] MEDS: METOPROLOL TARTRATE 50 MG TAB PO SCH ×2 (06:38→19:42)
[2018-04-17] MEDS: LISINOPRIL 20 MG TAB PO SCH ×2 (06:38→19:42)
[2018-04-17] MEDS: FAMOTIDINE 20 MG TAB PO SCH (06:38)
[2018-04-17 06:40] LABS: Basophils # (A) 0.1 k/uL (0-0.2); Basophils % (A) 1 %; Eosinophils # (A) 0.5 k/uL (0-0.7); Eosinophils % (A) 4 %; HCT 46.5 % (34.0-46.0); Lymphocytes # (A) 3.4 k/uL (1.0-4.8); Lymphocytes % (A) 30 %; MCHC 32.3 g/dL (31.0-37.0); MCV 89.8 fL (80.0-100.0); Mean Platelet Volume 6.6; Monocytes # (A) 0.7 k/uL (0-1.0); Monocytes % (A) 6 %; Neutrophils # (A) 6.6 k/uL (1.3-7.7); Neutrophils % (A) 58 %; Platelet Count 443 k/uL (150-450); RBC 5.18 m/uL (3.80-5.40); WBC 11.5 k/uL (3.8-10.6)
[2018-04-17] MEDS: ALPRAZolam 0.5 MG TAB PO SCH ×2 (06:40→21:49)
[2018-04-17] MEDS ORDERED: SODIUM CHLORIDE 0.9% 500 ML IV ONE (07:30)
[2018-04-17] MEDS: MIDAZOLAM 2 MG/2 ML VIAL IV ONE ×2 (07:36→07:49)
[2018-04-17] MEDS ORDERED: fentaNYL (PF) 50 MCG/ML 2 ML AMP IV ONE (07:37)
[2018-04-17] MEDS ORDERED: LIDOCAINE 2% INJ 20 MG/ML SQ ONE (07:41)
[2018-04-17] MEDS ORDERED: hydrALAZINE HCL 20 MG/ML 1 ML VIAL IV ONE (08:23)
[2018-04-17] MEDS ORDERED: IOPAMIDOL-370 125ML BTL INJ ONE (08:34)
[2018-04-17] MEDS ORDERED: IOPAMIDOL-370 100ML BTL INJ ONE (08:34)
[2018-04-17] MEDS ORDERED: RX INFO: IV CONTRAST WAS GIVEN 1 EACH MISC MISCELLANE PRN (08:40)
--- NOTE | 2018-04-17 08:50 | P.PCN ---
Date of Procedure: 04/17/18 Preoperative Diagnosis: Unstable angina with borderline troponin elevation Postoperative Diagnosis: Diffuse coronary artery disease with total occlusion of the graft to the RCA Procedure(s) Performed: Left heart catheterization with selective injection of the 3 vein grafts and the WILD graft. No LV gram Description of Procedure: HISTORY: This is a 52-year-old female with history of ischemic or disease with multiple stent procedures and also aortic coronary bypass surgery done about 34 years ago. Patient is admitted now to the hospital with chest pains and borderline troponin elevation. Patient was evaluated by Dr. ANDREZ Acevedo and recommended a cardiac catheterization for definitive diagnosis. CONSENT:I have discussed the risks, benefits and alternative therapies for the above-mentioned procedure and for both sedation/analgesia as well as necessary blood product administration, if indicated, as they pertain to this patient. The patient has indicated understanding and acceptance of the risks and procedures discussed. PROCEDURE: Patient was brought to the lab in a fasting state. Patient was given some IV sedation. The right groin is infiltrated with lidocaine and right femoral artery was entered using Seldinger technique. A 6-Hong Konger catheter was left in place and selective coronary arteriography including selective injection of the 3 vein grafts and the WILD graft was performed. Patient tolerated the procedure well. Femoral angiogram was performed and manual compression was applied for hemostasis. No immediate complications were noted and patient was transferred to selective care in a stable condition Conscious Sedation: Versed 2 mg Fentanyl 50 g Duration 36 minutes HEMODYNAMICS: The aortic pressure is about 135/70. Left ventricle end- diastolic pressure was not measured. SELECTIVE CORONARY ARTERIOGRAPHY: LEFT MAIN: Normal length and and free of any occlusive disease THE LEFT ANTERIOR DESCENDING CORONARY ARTERY: This is totally occluded in the midportion after small septal branch. The distal LAD seen by WILD graft. THE LEFT CIRCUMFLEX AND IS CORONARY ARTERY: This has about 99% stenosis in midportion. There is retrograde flow into the vein graft THE RIGHT CORONARY ARTERY: This is diffuse and this is vessel with a Presence of previous stents in the proximal to midportion. There is dampening of pressures upon engagement of the ostium. There appears to be 60-70% ostial stenosis and also about 70% stenosis distally with moderate disease throughout the vessel. THE WILD GRAFT TO THE LAD: The WILD graft to LAD patent throat its length and also the distal anastomosis. There is a focus at the distal end of the WILD and also seemed to be mild to moderate disease in the LAD at the insertion site. Beyond that the vessel is mildly diffusely diseased. The vein graft to the RCA: This is totally occluded in the proximal portion The vein graft to the diagonal: This is patent at the proximal and distal anastomosis. The diagonal branch is small but free of any significant occlusive disease. The vein graft to the OM branch 1 and 2: This is a jump graft. This a huge caliber vessel which is patent at the proximal and distal anastomosis. The OM branches beyond the insertion of free of any significant focal disease. LEFT VENTRICULOGRAPHY: Not performed FINAL IMPRESSION: Diffuse coronary artery disease with a total occlusion of the mid LAD: 99% stenosis of the mid circumflex, moderate to severe disease involving the ostium of the RCA with a diffuse disease throughout its length. There is mild in-stent stenosis in the mid circumflex PLAN: Maximum medical therapy. Dr. ANDREZ Acevedo reviewed the films and is planning for a collective stent placement of the RCA including the ostium and probably distal vessels PROGNOSIS: Guarded
[2018-04-17] MEDS: SODIUM CHLORIDE 0.9% 1,000 ML IV SCH ×2 (11:12→19:35)
[2018-04-17] MEDS: FUROSEMIDE 40 MG TAB PO SCH ×2 (11:13→19:42)
[2018-04-17] MEDS: HYDROcodone/APAP 10-325MG 1 EACH TAB PO PRN ×2 (12:39→21:49)
[2018-04-17] MEDS: HEPARIN SODIUM,PORCINE/D5W PMX 25,000 UNIT in DEXTROSE/WATER 1 500ML.BAG IV SCH (12:41)
--- NOTE | 2018-04-17 13:11 | P.PN ---
Subjective Progress Note Date: 04/17/18 This is a 52-year-old female patient of Dr. Houser with past medical history of coronary artery disease status post 5 vessel CABG at [facility], hypertension, hyperlipidemia, frequent urinary tract infections, migraine headaches, fibromyalgia, anxiety. Patient's process analyst is Dr. Solomon and she last saw him one month ago and had a 30 day monitor completed, echocardiogram. Patient states that she has had trouble with kidney stones and has been taking [place] and was having constipation issues use a fleets enema when she was in the bathroom she developed chest pain that was tightness along with sweats. He denies having any chest pain with physical activity prior to this. EMS obtained a systolic blood pressure of 190 and her pain was a 10 out of 10. Patient states that her pain improved after receiving 3 nitroglycerin and aspirin. In the emergency center, her white count was 12.7 , hemoglobin 14.4, platelet count 457, creatinine was 0.73. Initial troponin was 0.043. She was afebrile. She was started on a heparin drip, aspirin, nitroglycerin sublingually and morphine and admitted to the selective care unit and cardiology consult was requested. 04/16: Patient has been evaluated by cardiology with recommendations to continue current medications and increase dose of Lipitor. Echocardiogram reveals borderline concentric left nuclear hypertrophy, EF 55-60%, LA mildly dilated at 29-33, no aortic stenosis or regurgitation, mild mitral regurgitation, mild tricuspid regurgitation, right ventricular systolic pressure is normal. Patient underwent CT angiogram thoracic and abdominal aorta that revealed no evidence of aneurysm or dissection. Soft plaque scattered throughout the abdominal aorta. Repeat troponins are 0.063 and 0.067. Patient is scheduled for heart catheterization on Friday. She did have a bowel movement this morning. 04/17: Patient underwent left heart catheterization today that showed patent graft to the LAD, occluded vein graft to the RCA, and panic graft to the diagonal branch and the up his marginal 1 and 2, the plan is to put a collective stent through the RCA next week however the patient would be stable in the hospital for another night and she will be discharged home tomorrow morning. Objective - Vital Signs Vital signs: Vital Signs Temp 97.1 F L 04/17/18 09:10 Pulse 54 L 04/17/18 09:55 Resp 16 04/17/18 09:55 BP 131/67 04/17/18 09:55 Pulse Ox 97 04/17/18 09:55 Intake & Output 04/16/18 04/17/18 04/17/18 18:59 06:59 18:59 Intake Total 492.275 150 Balance 492.275 150 Weight 82 kg Intake: IV 150 Intake, IV Titration 252.275 Amount Heparin Sodium,Porcine/ 252.275 D5w Pmx 25,000 unit In Dextrose/Water 1 500ml. bag @ 12 UNITS/KG/HR 16. 32 mls/hr IV .Q24H [facility] Rx #:[id number] Oral 240 Other: Voiding Method Toilet Toilet Toilet # Voids 2 1 - Constitutional General appearance: Present: average body habitus, no acute distress - EENT Eyes: Present: anicteric sclerae, EOMI, PERRLA, normal appearance. Absent: ptosis, scleral icterus ENT: Present: hearing grossly normal, NA/AT, normal oropharynx. Absent: thrush Ears: bilateral: normal - Neck Neck: Present: normal ROM. Absent: lymphadenopathy, rigidity, stridor, thyromegaly Carotids: bilateral: upstroke normal Thyroid: bilateral: normal size - Respiratory Respiratory: bilateral: diminished, negative: dullness, rales, rhonchi, wheezing , prolonged expiration - Cardiovascular Rhythm: regular Heart sounds: normal: S1, S2 Abnormal Heart Sounds: Present: systolic murmur. Absent: S3 Gallop, S4 Gallop - Gastrointestinal General gastrointestinal: Present: normal bowel sounds, soft. Absent: splenomegaly, tenderness, umbilical hernia, ventral hernia - Integumentary Integumentary: Present: normal, normal turgor - Neurologic Neurologic: Present: CNII-XII intact - Musculoskeletal Musculoskeletal: Present: strength equal bilaterally - Psychiatric Psychiatric: Present: A&O x's 3, appropriate affect, intact judgment & insight - Labs CBC & Chem 7: 04/17/18 06:06 04/15/18 09:57 Labs: Abnormal Lab Results - Last 24 Hours (Table) 04/17/18 Range/Units 06:06 WBC 11.5 H (3.8-10.6) k/uL Hct 46.5 H (34.0-46.0) % Assessment and Plan Assessment: Assessment and Plan Plan: 1. Chest pain with mild elevation of initial troponin with possible non-ST elevated myocardial infarction. Post left heart catheterization that showed a patent WILD graft to LAD, totally occluded vein graft to the RCA and patent graft to the diagonal and obtuse marginal 1 and 2, the plan is to maximum medical therapy and attempting collective stent in the RCA. 2. Hypertension, accelerated. This may be cause of patient's chest pain. Continue Norvasc 5 mg daily, Lasix 40 mg twice daily, lisinopril 20 mg twice daily, Lopressor 100 mg twice daily. 3. Hyperlipidemia. Continue Lipitor 10 mg at bedtime. 4. History of coronary artery disease with 5 vessel CABG done at [facility]. 5. History of migraine headaches. 6. Fibromyalgia, stable. 7. Generalized anxiety disorder. Continue Xanax 0.5 mg twice daily as needed. 8. Current treatment for urinary tract infection. Continue Cipro. 9. DVT prophylaxis. Patient is on heparin. 10. GI prophylaxis. Pepcid. 11. Hopefully home in the next 24 hours.
--- NOTE | 2018-04-17 15:06 | PN ---
PROGRESS NOTE Mrs. Martinez is a 52-year-old lady with a history of prior aortocoronary bypass surgery. She is going to have a cardiac cath to be performed by Dr. Solomon today. Vital signs are stable. S1-S2 heard normally. Lungs are clear. Abdomen and lower extremity exam is unchanged. The patient understand all details and wishes to proceed with cardiac catheterization. Based on the findings, we will make further recommendations. This lady has what seems to be a borderline troponin elevation suggestive of acute ischemic syndrome. Risk factor modification was advised. MMODL / IJN: [id number] /
[2018-04-17] MEDS: ATORVASTATIN 80 MG TAB PO SCH (19:42)
[2018-04-18 06:30] LABS: Basophils % (A) 0 %; Eosinophils # (A) 0.4 k/uL (0-0.7); Eosinophils % (A) 3 %; HCT 47.3 % (34.0-46.0); HGB 15.3 gm/dL (11.4-16.0); Lymphocytes # (A) 2.2 k/uL (1.0-4.8); Lymphocytes % (A) 17 %; MCH 28.9 pg (25.0-35.0); MCHC 32.4 g/dL (31.0-37.0); MCV 89.2 fL (80.0-100.0); Mean Platelet Volume 6.4; Monocytes # (A) 1.3 k/uL (0-1.0); Monocytes % (A) 11 %; Neutrophils # (A) 8.7 k/uL (1.3-7.7); Neutrophils % (A) 68 %; Platelet Count 378 k/uL (150-450); RBC 5.31 m/uL (3.80-5.40); RDW 14.8 % (11.5-15.5); WBC 12.8 k/uL (3.8-10.6)
[2018-04-18 06:51] LABS: ALT 40 U/L (9-52); AST 30 U/L (14-36); Alkaline Phosphatase 87 U/L (38-126); Anion Gap 14 mmol/L; Blood Urea Nitrogen 15 mg/dL (7-17); Calcium 9.9 mg/dL (8.4-10.2); Carbon Dioxide 22 mmol/L (22-30); Chloride 106 mmol/L (98-107); Glucose 92 mg/dL (74-99); Sodium 142 mmol/L (137-145); Total Bilirubin 0.5 mg/dL (0.2-1.3); Total Protein 6.7 g/dL (6.3-8.2)
[2018-04-18] MEDS ORDERED: HEPARIN SODIUM,PORCINE 5,000 UNIT/ML 1 ML VIAL SQ SCH (09:00)
[2018-04-18] MEDS: amLODIPine 5 MG TAB PO SCH (09:03)
[2018-04-18] MEDS: ASPIRIN 81 MG PO SCH (09:03)
[2018-04-18] MEDS: FUROSEMIDE 40 MG TAB PO SCH (09:03)
[2018-04-18] MEDS: METOPROLOL TARTRATE 50 MG TAB PO SCH (09:03)
[2018-04-18] MEDS: ALPRAZolam 0.5 MG TAB PO SCH (09:03)
[2018-04-18] MEDS: FAMOTIDINE 20 MG TAB PO SCH (09:03)
[2018-04-18] MEDS: LISINOPRIL 20 MG TAB PO SCH (09:04)
[2018-04-18 10:11] VITALS: RESP 16
[2018-04-18] MEDS: SODIUM CHLORIDE 0.9% 1,000 ML IV SCH (11:23)
[2018-04-18 13:54] VITALS: BP 103/65; PULSE 58; TEMP 97.6
--- NOTE | 2018-04-18 19:20 | P.DS ---
Providers Date of admission: 04/15/18 12:41 Attending physician: Andrey Sutton Consults: 04/15/18 12:29 Consult Physician Routine Consulting Provider: Rashard Acevedo Consult Reason/Comments: NSTEMI Do you want consulting provider notified?: Yes Primary care physician: Govind [facility] Course: This is a 52-year-old female patient of Dr. Houser with past medical history of coronary artery disease status post 5 vessel CABG at [facility], hypertension, hyperlipidemia, frequent urinary tract infections, migraine headaches, fibromyalgia, anxiety. Patient's labeler is Dr. Solomon and she last saw him one month ago and had a 30 day monitor completed, echocardiogram. Patient states that she has had trouble with kidney stones and has been taking [place] and was having constipation issues use a fleets enema when she was in the bathroom she developed chest pain that was tightness along with sweats. He denies having any chest pain with physical activity prior to this. EMS obtained a systolic blood pressure of 190 and her pain was a 10 out of 10. Patient states that her pain improved after receiving 3 nitroglycerin and aspirin. In the emergency center, her white count was 12.7 , hemoglobin 14.4, platelet count 457, creatinine was 0.73. Initial troponin was 0.043. She was afebrile. She was started on a heparin drip, aspirin, nitroglycerin sublingually and morphine and admitted to the selective care unit and cardiology consult was requested. 04/16: Patient has been evaluated by cardiology with recommendations to continue current medications and increase dose of Lipitor. Echocardiogram reveals borderline concentric left nuclear hypertrophy, EF 55-60%, LA mildly dilated at 29-33, no aortic stenosis or regurgitation, mild mitral regurgitation, mild tricuspid regurgitation, right ventricular systolic pressure is normal. Patient underwent CT angiogram thoracic and abdominal aorta that revealed no evidence of aneurysm or dissection. Soft plaque scattered throughout the abdominal aorta. Repeat troponins are 0.063 and 0.067. Patient is scheduled for heart catheterization on Friday. She did have a bowel movement this morning. 04/17: Patient underwent left heart catheterization today that showed patent graft to the LAD, occluded vein graft to the RCA, and panic graft to the diagonal branch and the up his marginal 1 and 2, the plan is to put a collective stent through the RCA next week however the patient would be stable in the hospital for another night and she will be discharged home tomorrow morning 04/18: Patient underwent cardiac cath yesterday without any residual chest pain today, anticipating her discharge today and has been cleared by cardiology. Final Diagnosis 1. Unstable angina with mild elevation of initial troponin with suspected non- ST elevated myocardial infarction. Post left heart catheterization that showed a patent WILD graft to LAD, totally occluded vein graft to the RCA and patent graft to the diagonal and obtuse marginal 1 and 2, the plan is to maximum medical therapy and attempting collective stent in the RCA. Follow-up with PCP Dr Hager in one week, follow-up with Dr tee in 1 week 2. Hypertension, accelerated. This may be cause of patient's chest pain. Continue Norvasc 5 mg daily, Lasix 40 mg twice daily, lisinopril 20 mg twice daily, Lopressor 100 mg twice daily. 3. Hyperlipidemia. Continue Lipitor 10 mg at bedtime. 4. History of coronary artery disease with 5 vessel CABG done at [facility]. 5. History of migraine headaches. 6. Fibromyalgia, stable. 7. Generalized anxiety disorder. Continue Xanax 0.5 mg twice daily as needed. 8. Current treatment for urinary tract infection. Continue Cipro. 9. DVT prophylaxis. Patient is on heparin. 10. GI prophylaxis. Pepcid. Discharge Medication List ALPRAZolam [Xanax] 0.5 mg PO BID 04/15/18 [History] Ciprofloxacin HCl [Cipro] 500 mg PO Q12HR 04/15/18 [History] HYDROcodone/APAP 10-325MG [Gypsum 10-325] 1 tab PO Q6HR PRN 04/15/18 [History] Ibuprofen [Motrin] 600 mg PO Q6HR PRN 04/15/18 [History] Lisinopril [Zestril] 20 mg PO BID 04/15/18 [History] Metoprolol Tartrate [Lopressor] 100 mg PO BID 04/15/18 [History] Tamsulosin HCl [Flomax] 0.4 mg PO DAILY 04/15/18 [History] amLODIPine [Norvasc] 5 mg PO DAILY 04/15/18 [History] Aspirin 81 mg PO DAILY chew 04/18/18 [Rx] Atorvastatin [Lipitor] 80 mg PO HS #30 tab 04/18/18 [Rx] Furosemide [Lasix] 40 mg PO QAM tab 04/18/18 [Rx] Nitroglycerin Sl Tabs [Nitrostat] 0.4 mg SUBLINGUAL Q5M PRN #25 tab 04/18/18 [Rx ] Patient Condition at Discharge: Stable Plan - Discharge Summary Discharge Rx Participant: No New Discharge Prescriptions: New Aspirin 81 mg PO DAILY chew Atorvastatin [Lipitor] 80 mg PO HS #30 tab Furosemide [Lasix] 40 mg PO QAM tab Nitroglycerin Sl Tabs [Nitrostat] 0.4 mg SUBLINGUAL Q5M PRN #25 tab PRN Reason: Chest Pain Continue Lisinopril [Zestril] 20 mg PO BID amLODIPine [Norvasc] 5 mg PO DAILY Metoprolol Tartrate [Lopressor] 100 mg PO BID Ciprofloxacin HCl [Cipro] 500 mg PO Q12HR ALPRAZolam [Xanax] 0.5 mg PO BID Ibuprofen [Motrin] 600 mg PO Q6HR PRN PRN Reason: Pain HYDROcodone/APAP 10-325MG [Gypsum 10-325] 1 tab PO Q6HR PRN PRN Reason: Pain Tamsulosin HCl [Flomax] 0.4 mg PO DAILY Discontinued Furosemide [Lasix] 40 mg PO BID Simvastatin [Zocor] 10 mg PO HS Discharge Medication List ALPRAZolam [Xanax] 0.5 mg PO BID 04/15/18 [History] Ciprofloxacin HCl [Cipro] 500 mg PO Q12HR 04/15/18 [History] HYDROcodone/APAP 10-325MG [Gypsum 10-325] 1 tab PO Q6HR PRN 04/15/18 [History] Ibuprofen [Motrin] 600 mg PO Q6HR PRN 04/15/18 [History] Lisinopril [Zestril] 20 mg PO BID 04/15/18 [History] Metoprolol Tartrate [Lopressor] 100 mg PO BID 04/15/18 [History] Tamsulosin HCl [Flomax] 0.4 mg PO DAILY 04/15/18 [History] amLODIPine [Norvasc] 5 mg PO DAILY 04/15/18 [History] Aspirin 81 mg PO DAILY chew 04/18/18 [Rx] Atorvastatin [Lipitor] 80 mg PO HS #30 tab 04/18/18 [Rx] Furosemide [Lasix] 40 mg PO QAM tab 04/18/18 [Rx] Nitroglycerin Sl Tabs [Nitrostat] 0.4 mg SUBLINGUAL Q5M PRN #25 tab 04/18/18 [Rx ] Follow up Appointment(s)/Referral(s): Govind Houser MD [Primary Care Provider] - 1-2 days Grace Solomon MD [STAFF PHYSICIAN] - 1 Week Patient Instructions/Handouts: *Surgery [facility] - After Heart Catheterization - Steward/Stewardess Second Instructions, Myocardial Infarction (DC) Discharge Disposition: HOME SELF-CARE
--- NOTE | 2018-04-18 22:06 | PN ---
PROGRESS NOTE Mrs. Justina Martinez underwent cardiac cath performed by Dr. Raines yesterday. She underwent aortocoronary bypass surgery with 5 grafts 3 years ago at [facility]. She had a single vein graft, which was a jump graft to the 2 branches of circumflex, both obtuse marginal branches. This graft was patent. She has a graft to the diagonal, which was patent, and a WILD to LAD is patent. Her vein graft to the RCA is occluded, but the RCA itself has diffuse disease with previous stenting and there is in-stent stenosis of at least 60%-70% with ostial stenosis of more than 60%-70%. This is a very difficult lesion for intervention. I spent quite a bit of time and explained to her the that we will perform this procedure electively and this would involve dilating within the stent as well as a new lesion beyond the stented segment and also then perform ostial RCA stenting as well. The patient was explained that the risk is higher and the success rate in the range of 80%-85%, given the diffuse nature of disease and also ostial lesion. She understands all details and wishes to proceed with the procedure, which I will set up for the next 1-2 weeks. In the interim, I have advised her to continue current medications, avoid strenuous activity and also to quit smoking. Her right groin is clean and dry. Her vital signs are stable. S1, S2 heard normally. Short systolic murmur at left sternal border. Lungs are clear. Abdomen and lower extremities otherwise are unchanged. MMODL / IJN: [id number] /
[2018-04-19] MEDS ORDERED: FUROSEMIDE 40 MG TAB PO SCH (09:00)
== END 2018-04-18 16:07 | disposition home or self-care (01) | DRG 281 ==
LOC: EDSEX 09:30 → EC 09:30 → MERGE 12:41 → 6SEL 12:41
PROVIDERS: ADMIT Internal Medicine; ATTEND Internal Medicine
PROC: B2131ZZ Fluoroscopy of Multiple Coronary Artery Bypass Grafts using Low Osmolar Contrast (ICD-10-PCS; principal; 2018-04-17 07:25)
PROC: B2111ZZ Fluoroscopy of Multiple Coronary Arteries using Low Osmolar Contrast (ICD-10-PCS; principal; 2018-04-17 07:25)
PROC: 4A023N7 Measurement of Cardiac Sampling and Pressure, Left Heart, Percutaneous Approach (ICD-10-PCS; principal; 2018-04-17 07:25)
DX: I21.4 Non-ST elevation (NSTEMI) myocardial infarction (principal); N39.0 Urinary tract infection, site not specified; T82.855A Stenosis of coronary artery stent, initial encounter; E78.5 Hyperlipidemia, unspecified; I25.710 Atherosclerosis of autologous vein coronary artery bypass graft(s) with unstable angina pectoris; F17.200 Nicotine dependence, unspecified, uncomplicated; F41.1 Generalized anxiety disorder; H91.92 Unspecified hearing loss, left ear; I10 Essential (primary) hypertension; I25.110 Atherosclerotic heart disease of native coronary artery with unstable angina pectoris; I25.2 Old myocardial infarction; M19.041 Primary osteoarthritis, right hand; M19.042 Primary osteoarthritis, left hand; M79.7 Fibromyalgia; M17.12 Unilateral primary osteoarthritis, left knee; Y83.1 Surgical operation with implant of artificial internal device as the cause of abnormal reaction of the patient, or of later complication, without mention of misadventure at the time of the procedure; Z79.899 Other long term (current) drug therapy; Z80.3 Family history of malignant neoplasm of breast; Z82.49 Family history of ischemic heart disease and other diseases of the circulatory system; Z83.3 Family history of diabetes mellitus; Z87.440 Personal history of urinary (tract) infections; Z87.442 Personal history of urinary calculi; Z90.710 Acquired absence of both cervix and uterus; Z90.49 Acquired absence of other specified parts of digestive tract; Z79.891 Long term (current) use of opiate analgesic; Z88.1 Allergy status to other antibiotic agents; Z88.2 Allergy status to sulfonamides; Z88.8 Allergy status to other drugs, medicaments and biological substances
CPT/HCPCS: 36415; 71046; 71275; 75635; 80053; 82550; 82553; 83690; 83735; 83880; 84484; 85025; 85610; 85730; 93005; 93306; 93455; 94760; 96365; 96376; 99291

== ENCOUNTER 2019-06-09 10:07 | Observation (INO) | payer OTHER ==
[2019-06-09] MEDS ORDERED: ASPIRIN 81 MG PO STA (10:22)
[2019-06-09] MEDS ORDERED: NITROGLYCERIN SL TABS 0.4 MG TAB SUBLINGUAL STA (10:22)
[2019-06-09] MEDS ORDERED: SODIUM CHLORIDE 0.9% 1,000 ML IV STA (10:22)
--- NOTE | 2019-06-09 10:26 | ED ---
Chest Pain HPI - General Chief Complaint: Chest Pain Stated Complaint: chest pressure Time Seen by Provider: 06/09/19 10:15 Source: patient, RN notes reviewed, old records reviewed Mode of arrival: wheelchair Limitations: no limitations - History of Present Illness Initial Comments: This is a 55-year-old female with extensive history of heart disease bypass surgery and stents who states she had the onset 2 days ago after cutting grass of nausea. His been also have some left chest pain and pain in her neck she states. Right now she has 4-5/10 severity pain the initial discomfort 2 days ago was associated with nausea after cutting grass he is also now been developing sweats with it. He states he is not been feeling well the last several days. She did take 81 mg of aspirin this morning with her Brilinta. She did have the episode. She did take aspirin she did not find her own nitroglycerin which she subsequently found out was . MD Complaint: chest pain - Related Data Home Medications Medication Instructions Recorded Confirmed ALPRAZolam [Xanax] 0.5 mg PO BID 04/15/18 06/09/19 Loratadine [Claritin] 10 mg PO DAILY 05/05/18 06/09/19 Furosemide [Lasix] 20 mg PO DAILY 06/09/19 06/09/19 Lisinopril [Zestril] 10 mg PO HS 06/09/19 06/09/19 Metoprolol Tartrate [Lopressor] 100 mg PO BID 06/09/19 06/09/19 Simvastatin 80 mg PO HS 06/09/19 06/09/19 Previous Rx's Medication Instructions Recorded Aspirin 81 mg PO DAILY chew 05/08/18 Ticagrelor [Brilinta] 90 mg PO BID #180 tab 05/08/18 Allergies Allergy/AdvReac Type Severity Reaction Status Date / Time clopidogrel [From Plavix] Allergy Severe Anaphylaxis Verified 06/09/19 10:30 Tetracyclines Allergy Rash/Hives Verified 06/09/19 10:30 sulfamethoxazole AdvReac Vomiting Verified 06/09/19 10:30 [From Bactrim] trimethoprim [From Bactrim] AdvReac Vomiting Verified 06/09/19 10:30 Review of Systems ROS Statement: Those systems with pertinent positive or pertinent negative responses have been documented in the HPI. ROS Other: All systems not noted in ROS Statement are negative. Past Medical History Past Medical History: Coronary Artery Disease (CAD), Chest Pain / Angina, Hearing Disorder / Deafness, Hyperlipidemia, Hypertension, Myocardial Infarction (MA), Osteoarthritis (OA), Pneumonia, Renal Disease Additional Past Medical History / Comment(s): MIs in , occasional L leg edema since CABG with L leg vein harvesting, recurrent nephrolithiasis with surgical removal, past utis, arthritis bilateral hands and L knee, deaf L ear. Last Myocardial Infarction Date:: 04/15/18 History of Any Multi-Drug Resistant Organisms: None Reported Past Surgical History: Adenoidectomy, Section, Cholecystectomy, Coronary Bypass/CABG, Heart Catheterization, Heart Catheterization With Stent, Hysterectomy, Tonsillectomy, Tubal Ligation Additional Past Surgical History / Comment(s): 11/2014 CABG 5 vessels at [facility], PCIs with a total of 6 or 7 stents at [facility], lithotripsies x 3, colonoscopy-normal, bilateral knee arthroscopies, Past Anesthesia/Blood Transfusion Reactions: Motion Sickness, No Reported Reaction Date of Last Stent Placement:: unkn Past Psychological History: Anxiety Smoking Status: Current every day smoker Past Alcohol Use History: None Reported Past Drug Use History: Marijuana, Methamphetamine - Past Family History Father History Unknown: Yes Additional Family Medical History / Comment(s): Patient does not know anything about her father and has no contact with him. Mother Family Medical History: Cancer, Congestive Heart Failure (CHF), Dementia, Diabetes Mellitus, Fibromyalgia, Skin Disorder Additional Family Medical History / Comment(s): Mother is alive at age 73 with history of Obesity, stasis dermatitis, breast cancer with bilateral mastectomies. Son(s) Additional Family Medical History / Comment(s): Patient has one son with no major medical problems. Patient does not have any brothers or sisters. General Exam - General Exam Comments Initial Comments: This is a well-developed well-nourished awake alert oriented 3 female Limitations: no limitations General appearance: alert, in no apparent distress Head exam: Present: atraumatic, normocephalic, normal inspection Eye exam: Present: normal appearance, PERRL, EOMI. Absent: scleral icterus, conjunctival injection, periorbital swelling ENT exam: Present: normal exam, mucous membranes moist Neck exam: Present: normal inspection. Absent: tenderness, meningismus, lymphadenopathy Respiratory exam: Present: normal lung sounds bilaterally. Absent: respiratory distress, wheezes, rales, rhonchi, stridor Cardiovascular Exam: Present: regular rate, normal rhythm, normal heart sounds. Absent: systolic murmur, diastolic murmur, rubs, gallop, clicks GI/Abdominal exam: Present: soft, normal bowel sounds. Absent: distended, tenderness, guarding, rebound, rigid Extremities exam: Present: normal inspection, full ROM, normal capillary refill. Absent: tenderness, pedal edema, joint swelling, calf tenderness Back exam: Present: normal inspection Neurological exam: Present: alert, oriented X3, CN II-XII intact Psychiatric exam: Present: normal affect, normal mood Skin exam: Present: warm, dry, intact, normal color. Absent: rash Course Vital Signs 06/09/19 10:09 Temperature 98.0 F Pulse Rate 66 Respiratory 18 Rate Blood Pressure 123/85 O2 Sat by Pulse 97 Oximetry - Reevaluation(s) Reevaluation #1: 06/09/19 13:24 I did reevaluate patient on several occasions and her pain has resolved after nitroglycerin. Chest Pain MDM - MDM I did review the imaging and report no evidence of acute findings I did discuss findings with patient family as well as with Dr. Dr. Sutton. Patient presentati on is consistent with unstable angina cardiology will be consulted patient will be admitted. Critical Care Time Critical Care Time: Yes Critical Care Time: 31 minutes of critical care time which includes initial presentation with history physical labs x-rays several reevaluation is of the patient responsive therapy review of old charting discussion with the main physician Dr. Sutton admission orders and documentation of the above Disposition Clinical Impression: Unstable angina pectoris, Acute coronary syndrome Disposition: ADMITTED IP TO THIS [facility] Condition: Stable Referrals: Cj Dumont MD [Primary Care Provider] - 1-2 days
[2019-06-09 10:56] LABS: Basophils # (A) 0.1 k/uL (0-0.2); Basophils % (A) 0 %; Eosinophils # (A) 0.4 k/uL (0-0.7); Eosinophils % (A) 2 %; HCT 46.4 % (34.0-46.0); HGB 15.3 gm/dL (11.4-16.0); Lymphocytes % (A) 12 %; MCH 29.2 pg (25.0-35.0); MCHC 32.9 g/dL (31.0-37.0); MCV 88.6 fL (80.0-100.0); Mean Platelet Volume 6.3; Monocytes # (A) 1.2 k/uL (0-1.0); Monocytes % (A) 7 %; Neutrophils # (A) 12.9 k/uL (1.3-7.7); Neutrophils % (A) 77 %; Platelet Count 429 k/uL (150-450); RBC 5.23 m/uL (3.80-5.40); RDW 13.6 % (11.5-15.5); WBC 16.7 k/uL (3.8-10.6)
[2019-06-09 11:06] LABS: ALT 33 U/L (9-52); AST 23 U/L (14-36); African American GFR (CKD) >90 (>60 ml/min/1.73 sqM); Albumin 4.8 g/dL (3.5-5.0); Alkaline Phosphatase 133 U/L (38-126); Anion Gap 11 mmol/L; Blood Urea Nitrogen 19 mg/dL (7-17); Calcium 10.3 mg/dL (8.4-10.2); Carbon Dioxide 24 mmol/L (22-30); Chloride 107 mmol/L (98-107); Creatine Kinase 63 U/L (30-135); Glucose 113 mg/dL (74-99); INR 0.9 (<1.2); Magnesium 2.1 mg/dL (1.6-2.3); Partial Thromboplastin Time 25.1 sec (22.0-30.0); Potassium 4.1 mmol/L (3.5-5.1); Prothrombin Time 9.5 sec (9.0-12.0); Sodium 142 mmol/L (137-145); Total Bilirubin 0.7 mg/dL (0.2-1.3)
--- NOTE | 2019-06-09 11:21 | XR ---
EXAMINATION TYPE: XR chest 2V DATE OF EXAM: 06/09/2019 COMPARISON: 04/15/2018 HISTORY: Shortness of breath TECHNIQUE: Frontal and lateral views of the chest are obtained. FINDINGS: Scattered senescent parenchymal changes noted. Hyperinflation compatible with COPD. No evidence for infiltrate. No evidence for atelectasis. Heart size is stable. Mediastinal structures are stable and grossly unremarkable. No evidence for hilar prominence. Degenerative changes dorsal spine. IMPRESSION: 1. No evidence for acute pulmonary disease.
[2019-06-09] MEDS ORDERED: NITROGLYCERIN SL TABS 0.4 MG TAB SUBLINGUAL PRN (13:27)
[2019-06-09] MEDS ORDERED: HEPARIN SODIUM,PORCINE 5,000 UNIT/ML 1 ML VIAL IV ONE (13:27)
[2019-06-09] MEDS ORDERED: SODIUM CHLORIDE 0.9% 1,000 ML IV SCH (13:30)
[2019-06-09] MEDS ORDERED: HEPARIN SOD,PORK IN 0.45% NACL 25,000 UNIT in 0.45% NACL 1 250ML.BAG IV SCH (13:30)
--- NOTE | 2019-06-09 15:00 | P.HPIM ---
History of Present Illness H&P Date: 06/09/19 Chief Complaint: Chest pain This is a 54-year-old female patient of Dr. Houser with past medical history of coronary artery disease status post 5 vessel CABG at [facility], hypertension, hyperlipidemia, frequent urinary tract infections, migraine headaches, fibromyalgia, anxiety, patient was hospitalized at [facility] about a year ago with unstable angina at that time underwent left heart catheterization that showed patent stent in the IWLD to LAD, with a patent stent to the diagonal branch and obtuse marginal 1 and 2, however she was found to have a blockage in the saphenous graft to the RCA and that time she underwent elective RCA stent that was done and she has been doing fine following up with Dr. Arce on a regular basis, patient stated that she has been under a lot of stress recently taking care of her mother who has some memory issues and she has been doing some work in the backyard she was sitting in the back porch watching her mother and suddenly developed to have a significant perfuse sweating with increased chest pain associated with some nausea patient did have those episodes on and off for the past few days prior she decided to come to the ER today she developed significant nausea with increased diarrhea associated with chest pain and shortness breath so she came to the ER at [facility] had a twelve-lead EKG did not show any evidence of acute of normalities however because her presentation she was admitted to the hospital for evaluation by cariology. Patient continues to smoke unfortunately about a pack every day and she stated that she is quitting now. Review of Systems Constitutional: Denies anorexia, Denies chronic headaches, Denies lethargy, Den ies malaise, Denies weakness, Denies weight gain, Denies weight loss Eyes: denies blurred vision, denies bulging eye, denies decreased vision Ears: deny: decreased hearing Ears, nose, mouth and throat: Denies dysphagia, Denies neck lump Cardiovascular: Reports chest pain, Reports decreased exercise tolerance, Reports dyspnea on exertion, Reports shortness of breath, Denies leg edema, Denies lightheadedness, Denies orthopnea, Denies palpitations, Denies rapid heart beat, Denies syncope Respiratory: Denies congestion, Denies cough, Denies cough with sputum, Denies home oxygen, Denies sleep apnea, Denies snoring, Denies wheezing Gastrointestinal: Reports diarrhea, Reports nausea, Denies abdominal pain, Denies bloating, Denies BRBPR, Denies excessive gas, Denies heartburn, Denies loss of appetite, Denies melena, Denies vomiting Genitourinary: Denies dysuria, Denies hematuria Musculoskeletal: Denies myalgias Musculoskeletal: absent: ankle pain, ankle stiffness, ankle swelling, elbow pain, elbow stiffness, elbow swelling, foot pain, foot stiffness, foot swelling, hand pain, hand stiffness, hand swelling, hip pain, hip stiffness, hip swelling, knee pain, knee stiffness, knee swelling, shoulder pain, shoulder stiffness, shoulder swelling, wrist pain, wrist stiffness, wrist swelling Integumentary: Denies pruritus, Denies rash Neurological: Denies numbness, Denies weakness Psychiatric: Reports anxiety, Reports depression, Denies sadness/tearfulness, Denies sleep disturbances, Denies suicidal ideation Endocrine: Denies fatigue, Denies weight change Past Medical History Past Medical History: Coronary Artery Disease (CAD), Chest Pain / Angina, Hearing Disorder / Deafness, Hyperlipidemia, Hypertension, Myocardial Infarction ([place]), Osteoarthritis (OA), Pneumonia, Renal Disease Additional Past Medical History / Comment(s): MIs in , occasional L leg edema since CABG with L leg vein harvesting, recurrent nephrolithiasis with surgical removal, past utis, arthritis bilateral hands and L knee, deaf L ear. Last Myocardial Infarction Date:: 04/15/18 History of Any Multi-Drug Resistant Organisms: None Reported Past Surgical History: Adenoidectomy, Section, Cholecystectomy, Coronary Bypass/CABG, Heart Catheterization, Heart Catheterization With Stent, Hysterectomy, Tonsillectomy, Tubal Ligation Additional Past Surgical History / Comment(s): 11/2014 CABG 5 vessels at [facility], PCIs with a total of 6 or [address] [facility], lithotripsies x 3, colonoscopy-normal, bilateral knee arthroscopies, Past Anesthesia/Blood Transfusion Reactions: Motion Sickness, No Reported Reaction Date of Last Stent Placement:: unkn Past Psychological History: Anxiety Smoking Status: Current every day smoker Past Alcohol Use History: None Reported Past Drug Use History: Marijuana, Methamphetamine - Past Family History Father History Unknown: Yes Additional Family Medical History / Comment(s): Patient does not know anything about her father and has no contact with him. Mother Family Medical History: Cancer, Congestive Heart Failure (CHF), Dementia, Diabetes Mellitus, Fibromyalgia, Skin Disorder Additional Family Medical History / Comment(s): Mother is alive at age 73 with history of Obesity, stasis dermatitis, breast cancer with bilateral mastectomies. Son(s) Additional Family Medical History / Comment(s): Patient has one son with no major medical problems. Patient does not have any brothers or sisters. Medications and Allergies Home Medications Medication Instructions Recorded Confirmed Type ALPRAZolam [Xanax] 0.5 mg PO BID 04/15/18 06/09/19 History Loratadine [Claritin] 10 mg PO DAILY 05/05/18 06/09/19 History Aspirin 81 mg PO DAILY chew 05/08/18 06/09/19 Rx Ticagrelor [Brilinta] 90 mg PO BID #180 tab 05/08/18 06/09/19 Rx Furosemide [Lasix] 20 mg PO DAILY 06/09/19 06/09/19 History Lisinopril [Zestril] 10 mg PO HS 06/09/19 06/09/19 History Metoprolol Tartrate [Lopressor] 100 mg PO BID 06/09/19 06/09/19 History Simvastatin 80 mg PO HS 06/09/19 06/09/19 History Allergies Allergy/AdvReac Type Severity Reaction Status Date / Time clopidogrel [From Plavix] Allergy Severe Anaphylaxis Verified 06/09/19 10:30 Tetracyclines Allergy Rash/Hives Verified 06/09/19 10:30 sulfamethoxazole AdvReac Vomiting Verified 06/09/19 10:30 [From Bactrim] trimethoprim [From Bactrim] AdvReac Vomiting Verified 06/09/19 10:30 Physical Exam Vitals: Vital Signs Temp Pulse Resp BP Pulse Ox 06/09/19 10:09 98.0 F 66 18 123/85 97 Intake and Output 06/08/19 06/09/19 06/09/19 22:59 06:59 14:59 Other: Weight 81.193 kg - Constitutional General appearance: average body habitus, no acute distress - EENT Eyes: anicteric sclerae, EOMI, PERRLA, no ptosis, no scleral icterus, normal appearance ENT: hearing grossly normal, NA/AT, normal oropharynx, no thrush Ears: bilateral: normal - Neck Neck: no lymphadenopathy, normal ROM, no rigidity, no stridor, no thyromegaly Carotids: bilateral: upstroke normal Thyroid: bilateral: normal size - Respiratory Respiratory: bilateral: diminished, negative: dullness, rales, rhonchi, wheezing, prolonged expiration, prolonged inspiration - Cardiovascular Rhythm: regular Heart sounds: normal: S1, S2 Abnormal Heart Sounds: no systolic murmur, no S3 Gallop, no S4 Gallop - Gastrointestinal General gastrointestinal: normal bowel sounds, soft, no splenomegaly, no tenderness, no umbilical hernia, no ventral hernia - Integumentary Integumentary: normal, normal turgor - Neurologic Neurologic: CNII-XII intact - Musculoskeletal Musculoskeletal: gait normal, strength equal bilaterally - Psychiatric Psychiatric: A&O x's 3, appropriate affect, intact judgment & insight Results CBC & Chem 7: 06/09/19 10:32 06/09/19 10:32 Labs: Abnormal Lab Results - Last 24 Hours (Table) 06/09/19 06/09/19 Range/Units 10:32 10:32 WBC 16.7 H (3.8-10.6) k/uL Hct 46.4 H (34.0-46.0) % Neutrophils # 12.9 H (1.3-7.7) k/uL Monocytes # 1.2 H (0-1.0) k/uL BUN 19 H (7-17) mg/dL Glucose 113 H (74-99) mg/dL Calcium 10.3 H (8.4-10.2) mg/dL Alkaline Phosphatase 133 H (38-126) U/L Thrombosis Risk Factor Assmnt - DVT/VTE Prophylaxis DVT/VTE Prophylaxis: Pharmacologic Prophylaxis ordered, Mechanical Prophylaxis ordered Assessment and Plan Assessment: Assessment and plan: 1. Chest pain the patient with a prior history of CAD post CABG as well as PCI and stent placement. Continue patient on aspirin 81 mg once every day,Brilinta 90 mg orally twice every day, metoprolol 100 mg orally twice every day and Lipitor 40 mg at bedtime. Cardiac enzymes 3 every 8 hours, cardiology consultation 2. Hypertension and hypertensive cardiovascular disease. Continue lisinopril 10 mg orally once every day, metoprolol 100 mg orally twice every day. 3. Hyperlipidemia. Continue Lipitor 40 mg at bedtime. 4. History of coronary artery disease with 5 vessel CABG done at [facility]. Continue patient on metoprolol, aspirin, and Lipitor. 5. History of migraine headaches. Stable at this time. 6. Fibromyalgia, stable. 7. Generalized anxiety disorder. Continue Xanax 0.5 mg twice daily as needed. 8. DVT prophylaxis. Was started on heparin. 9. GI prophylaxis. Continue with Pepcid. 10. Observation. 11. Full code.
[2019-06-09] MEDS: NITROGLYCERIN OINT 1 INCH/GM PACKET TOPICAL SCH ×2 (17:55→23:51)
[2019-06-09] MEDS ORDERED: traMADol 50 MG TAB PO PRN (18:59)
[2019-06-09] MEDS: METOPROLOL TARTRATE 50 MG TAB PO SCH (20:08)
[2019-06-09] MEDS: LISINOPRIL 10 MG TAB PO SCH ×2 (20:08→23:10)
[2019-06-09] MEDS: TICAGRELOR 90 MG TAB PO SCH (20:08)
[2019-06-09] MEDS ORDERED: ATORVASTATIN 40 MG TAB PO SCH (21:00)
[2019-06-09] MEDS: ALPRAZolam 0.5 MG TAB PO SCH (23:10)
[2019-06-10 04:01] VITALS: TEMP 97.8
[2019-06-10] MEDS: NITROGLYCERIN OINT 1 INCH/GM PACKET TOPICAL SCH (06:09)
[2019-06-10] MEDS ORDERED: CAFFEINE CITRATE 60 MG/3 ML VIAL IV PRN ×2 (07:29→07:40)
[2019-06-10] MEDS ORDERED: AMINOPHYLLINE 500 MG/20 ML VIAL IV PRN ×2 (07:29→07:40)
[2019-06-10] MEDS ORDERED: REGADENOSON 0.4 MG/5 ML SYRINGE IV ONE (07:29)
[2019-06-10 07:50] LABS: Cholesterol 133 mg/dL (<200); HDL Cholesterol 36 mg/dL (40-60); LDL Cholesterol,Calculated 65 mg/dL (0-99); Triglycerides 160 mg/dL (<150)
[2019-06-10 07:53] VITALS: RESP 18
[2019-06-10] MEDS ORDERED: DIPYRIDAMOLE 46 MG in SODIUM CHLORIDE 0.9% 40.8 ML IV ONE (08:00)
[2019-06-10] MEDS ORDERED: LORATADINE 10 MG TAB PO SCH (09:00)
[2019-06-10] MEDS ORDERED: FAMOTIDINE 20 MG TAB PO SCH (09:00)
[2019-06-10] MEDS ORDERED: ASPIRIN 81 MG PO SCH (09:00)
[2019-06-10] MEDS ORDERED: FUROSEMIDE 20 MG TAB PO SCH (09:00)
--- NOTE | 2019-06-10 09:25 | CONS ---
CONSULTATION Pari Martinez is a 54-year-old lady with a known history of CAD, prior bypass surgery and multiple PCI of RCA. Apparently, she underwent aortocoronary bypass surgery about 4 years ago at [facility]. She had 3 vein grafts and a WILD. The WILD was placed to the LAD, vein graft to the RCA was totally occluded and the vein graft to the diagonal was patent, vein graft to the obtuse marginal 1 and 2, which was a jump graft was also patent. This lady presented in March of 2018 with unstable angina and underwent a cardiac cath by Dr. Solomon. Study revealed that the WILD was patent. The vein graft to the RCA was occluded. The vein graft to the obtuse marginal 1 and 2 which was a jump graft and vein graft to the diagonal were patent. On May 08, 2018, I performed stenting of multiple lesions in the vein graft to the RCA. There was an ostial lesion as well as a proximal in-stent restenosis and multiple stents were used. I also performed PTCA of a 2.0 caliber PLV branch as well. Excellent angiographic result was achieved and she was discharged home uneventfully. She did well until yesterday when she was cutting the grass. She felt some burning feeling in the chest and sensation of tightness. This lasted for less than 4 or 5 minutes. Then she continued her work and it felt better. This occurred on Friday. Subsequently on Friday and Friday, she had 2 other brief episodes of about burning feeling in the chest. The quality of the pain seems atypical and these 2 episodes occurred when she was not doing much physical activity. Therefore, she came into the hospital. After arrival, she was not having any symptoms. She is comfortable. EKG revealed a sinus mechanism with evidence of old inferior PR and nonspecific ST changes in the inferolateral leads. Her 3 sets of troponins are normal. She is resting comfortably without symptoms. Prior to this, she did quite a bit of physical activity and had no symptoms whatsoever. This is the first episode of discomfort and the quality of pain seems atypical. However, she is asymptomatic at the time of my evaluation. PAST MEDICAL HISTORY: Remarkable for CAD with aortocoronary bypass surgery 4 years ago and PTCA and stenting of RCA that was performed in [facility] and I performed PTCA and stenting with multiple drug-eluting stents within the algaaciq RCA after the vein graft was occluded. What I performed in April of last year was an in-stent restenosis of the algaaciq RCA. The patient continues to smoke. She also has hypertension, hyperlipidemia and history of recurrent nephrolithiasis and some degenerative joint disease. ALLERGIES: She is allergic to PLAVIX, SULFAMETHOXAZOLE, TETRACYCLINE, and BACTRIM. MEDICATIONS: Medications include aspirin 81 mg daily, Brilinta 90 mg b.i.d., lisinopril 10 mg daily, metoprolol tartrate 100 mg b.i.d., simvastatin 80 mg daily. She takes Claritin. PHYSICAL EXAMINATION: On examination, blood pressure is 118/70, pulse rate is about 60 per minute. HEENT unremarkable. Fundus was not examined by me. Neck is supple. No JVD. I do not hear a carotid bruit. There is no thyromegaly. Heart exam was S1, S2 heard normally without a rub, murmur or gallop. Lungs are clear. Abdomen is soft, nontender. Lower extremities reveal normal pulses. No edema. Central nervous system is normal. EKG revealed sinus mechanism with old inferior PR, nonspecific ST changes. LABORATORY DATA: Laboratory data revealed unremarkable troponins. Renal function is normal. Platelet count and hemoglobin are normal. IMPRESSION: 1. Chest pain syndrome, cannot exclude angina. 2. History of coronary artery disease with prior bypass surgery and PCI. Last PCI was in April 2018 with ostium and proximal RCA in-stent restenosis and PTCA of the PLV branch with a 2.0 balloon. 3. Hypertension. 4. Hyperlipidemia. 5. History of smoking. RECOMMENDATIONS: Patient has been counseled regarding the need to quit smoking. I will perform a Lexiscan stress test and if this is abnormal, consider intervention. I discussed my thoughts in detail with the patient. Thank you very much for the consult. MMODL / IJN: [id number] /
[2019-06-10] MEDS ORDERED: AMINOPHYLLINE 500 MG/20 ML VIAL IV ONE (09:55)
[2019-06-10] MEDS: METOPROLOL TARTRATE 50 MG TAB PO SCH (11:09)
[2019-06-10] MEDS: TICAGRELOR 90 MG TAB PO SCH (11:09)
[2019-06-10] MEDS: ALPRAZolam 0.5 MG TAB PO SCH (11:10)
[2019-06-10 11:37] VITALS: BP 137/79; PULSE 56
--- NOTE | 2019-06-10 12:03 | NM ---
EXAMINATION TYPE: NM stress persantine cardiolit DATE OF EXAM: 06/10/2019 COMPARISON: CTA aorta April 15, 2018 HISTORY: History of hypertension, tobacco use, family history of heart attack, prior 5 vessel CABG, a nd for prior heart attacks as well as hypercholesterolemia presents with chest pressure. TECHNIQUE: After the intravenous administration of 9.6 mCi Tc 99m Sestamibi - Cardiolite resting SPE CT images acquired 55 minutes post injection. The patient received 46 mg Persantine, 24.7 mCi Tc 99m Sestamibi - Stress images obtained 35 minutes post injection FINDINGS: Review of stress and rest SPECT images demonstrates diminished uptake on stress and rest images invol ving the septal wall extending into the inferior wall wall. Findings are in the RCA distribution. No areas of reversible ischemia are identified. Gated analysis shows overall ejection fraction of 46%. IMPRESSION: Area of old infarct identified. No convincing evidence of reversible ischemia.
--- NOTE | 2019-06-10 12:37 | EST ---
EXERCISE STRESS AGE: 54 SEX: F HT: 62" WT: 179 PROTOCOL: Persantine Cardiolite Stress Test HEART RATE REST: 56 BLOOD PRESSURE REST: 155/79 MAXIMUM HEART RATE ACHIEVED: 101 MAXIMUM BLOOD PRESSURE: 156/72 INDICATIONS: Chest pressure. CLINICAL INFORMATION: Baseline EKG revealed normal sinus rhythm without with inferior nonspecific ST changes. With Persantine administration, she did not have any significant symptoms. Heart rate changed from 56-93 beats per minute, blood pressure changed from 155/79 to 156/72. EKG remained inconclusive. Patient did not have angina. By EKG criteria, this is an inconclusive Lexiscan stress test because of resting EKG changes. The nuclear scan results which are more pertinent will be reported by the radiologist. MMODL / IJN: [id number] /
--- NOTE | 2019-06-11 09:43 | P.DS ---
Providers Date of admission: 06/09/19 13:27 Expected date of discharge: 06/10/19 Attending physician: Andrey Sutton Consults: 06/09/19 13:27 Consult Physician Urgent Consulting Provider: Jovany Raines Consult Reason/Comments: Unstable angina Do you want consulting provider notified?: Yes Primary care physician: Cj Sow Kent Hospital Course: This is a 54-year-old female patient of Dr. Houser with past medical history of coronary artery disease status post 5 vessel CABG at [facility], hypertension, hyperlipidemia, frequent urinary tract infections, migraine headaches, fibromyalgia, anxiety, patient was hospitalized at [facility] about a year ago with unstable angina at that time underwent left heart catheterization that showed patent stent in the WILD to LAD, with a patent stent to the diagonal branch and obtuse marginal 1 and 2, however she was found to have a blockage in the saphenous graft to the RCA and that time she underwent elective RCA stent that was done and she has been doing fine following up with Dr. Arce on a regular basis, patient stated that she has been under a lot of stress recently taking care of her mother who has some memory issues and she has been doing some work in the backyard she was sitting in the back porch watching her mother and suddenly developed to have a significant perfuse sweating with increased chest pain associated with some nausea patient did have those episodes on and off for the past few days prior she decided to come to the ER today she developed significant nausea with increased diarrhea associated with chest pain and shortness breath so she came to the ER at [facility] had a twelve-lead EKG did not show any evidence of acute of normalities however because her presentation she was admitted to the hospital for evaluation by cariology. Patient continues to smoke unfortunately about a pack every day and she stated that she is quitting now. 06/10: Troponins negative on 3 draws. Triglycerides 160, cholesterol 133, LDL 65, HDL 36. Patient has been afebrile, heart rate 61, blood pressure 143/74, pulse ox 90% on room air. Persantine stress test negative and patient has been cleared for discharge home today. Patient will be discharged home in stable condition. Discharge diagnoses: 1. Chest pain the patient with a prior history of CAD post CABG as well as PCI and stent placement. 2. Hypertension and hypertensive cardiovascular disease. 3. Hyperlipidemia. 4. History of coronary artery disease with 5 vessel CABG done at [facility]. 5. History of migraine headaches. Stable. 6. Fibromyalgia, stable. 7. Generalized anxiety disorder. Discharge plan: Home Impression and plan of care have been directed as dictated by the signing physician. Kelly Hunt nurse practitioner acting as scribe for signing physician. Patient Condition at Discharge: Good Plan - Discharge Summary Discharge Rx Participant: No New Discharge Prescriptions: Continue ALPRAZolam [Xanax] 0.5 mg PO BID Loratadine [Claritin] 10 mg PO DAILY Aspirin 81 mg PO DAILY chew Ticagrelor [Brilinta] 90 mg PO BID #180 tab Metoprolol Tartrate [Lopressor] 100 mg PO BID Lisinopril [Zestril] 10 mg PO HS Furosemide [Lasix] 20 mg PO DAILY Simvastatin 80 mg PO HS traMADol HCl [Ultram] 50 mg PO Q12HR PRN PRN Reason: Pain Discharge Medication List ALPRAZolam [Xanax] 0.5 mg PO BID 04/15/18 [History] Loratadine [Claritin] 10 mg PO DAILY 05/05/18 [History] Aspirin 81 mg PO DAILY chew 05/08/18 [Rx] Ticagrelor [Brilinta] 90 mg PO BID #180 tab 05/08/18 [Rx] Furosemide [Lasix] 20 mg PO DAILY 06/09/19 [History] Lisinopril [Zestril] 10 mg PO HS 06/09/19 [History] Metoprolol Tartrate [Lopressor] 100 mg PO BID 06/09/19 [History] Simvastatin 80 mg PO HS 06/09/19 [History] traMADol HCl [Ultram] 50 mg PO Q12HR PRN 06/09/19 [History] Follow up Appointment(s)/Referral(s): Cj Dumont MD [Primary Care Provider] - 1 Week Grace Solomon MD [STAFF PHYSICIAN] - As Needed Patient Instructions/Handouts: Chest Pain (GEN) Discharge Disposition: HOME SELF-CARE
== END 2019-06-10 13:37 | disposition home or self-care (01) ==
LOC: EC 10:07 → 1SOBS 13:27
PROVIDERS: ADMIT Internal Medicine; ATTEND Internal Medicine
DX: R07.89 Other chest pain (principal); R61 Generalized hyperhidrosis; M54.2 Cervicalgia; R11.0 Nausea; R19.7 Diarrhea, unspecified; R07.1 Chest pain on breathing; R06.00 Dyspnea, unspecified; I25.10 Atherosclerotic heart disease of native coronary artery without angina pectoris; Z95.1 Presence of aortocoronary bypass graft; I11.9 Hypertensive heart disease without heart failure; E78.5 Hyperlipidemia, unspecified; E78.00 Pure hypercholesterolemia, unspecified; M79.7 Fibromyalgia; F41.1 Generalized anxiety disorder; G43.909 Migraine, unspecified, not intractable, without status migrainosus; Z95.5 Presence of coronary angioplasty implant and graft; I24.9 Acute ischemic heart disease, unspecified; F17.210 Nicotine dependence, cigarettes, uncomplicated; H91.92 Unspecified hearing loss, left ear; M19.042 Primary osteoarthritis, left hand; M19.041 Primary osteoarthritis, right hand; M17.12 Unilateral primary osteoarthritis, left knee; I25.2 Old myocardial infarction; Z88.2 Allergy status to sulfonamides; Z88.1 Allergy status to other antibiotic agents; Z88.8 Allergy status to other drugs, medicaments and biological substances; Z87.440 Personal history of urinary (tract) infections; Z87.01 Personal history of pneumonia (recurrent); Z87.442 Personal history of urinary calculi; Z90.49 Acquired absence of other specified parts of digestive tract; Z79.82 Long term (current) use of aspirin; Z79.899 Other long term (current) drug therapy; Z79.02 Long term (current) use of antithrombotics/antiplatelets; Z82.49 Family history of ischemic heart disease and other diseases of the circulatory system; Z81.8 Family history of other mental and behavioral disorders; Z83.3 Family history of diabetes mellitus; Z80.3 Family history of malignant neoplasm of breast; Z84.0 Family history of diseases of the skin and subcutaneous tissue; Z82.69 Family history of other diseases of the musculoskeletal system and connective tissue
CPT/HCPCS: 96366 ×3; 96376; 96361; 96365; 99291; 36415; 93005; 93017; 83880; 80061; 80053; 82550; 83690; 83735; 84484; 85025; 85610; 85730 ×2; 71046; 78452; G0378 ×2; A9500; J1644 ×2; J0280

== ENCOUNTER 2021-03-15 13:38 | Emergency (ER) | payer OTHER ==
[2021-03-15 13:43] VITALS: TEMP 97.7
[2021-03-15 14:13] VITALS: RESP 18
--- NOTE | 2021-03-15 14:18 | ED ---
General Adult HPI - General Chief complaint: Chest Pain Stated complaint: High BP Time Seen by Provider: 03/15/21 13:53 Source: patient, family Mode of arrival: wheelchair Limitations: no limitations - History of Present Illness Initial comments: Dictation was produced using Buddy dictation software. please excuse any grammatical, word or spelling errors. This patient was cared for during a federal and state declared state of emergency secondary to Covid 19 Chief Complaint: 55-year-old female past medical history coronary artery d isease, dyslipidemia hypertension or cardiac infarction presents to the emergency department for episode of chest pain and palpitations History of Present Illness: She is 55-year-old female she has multiple cardiac comorbidities. She states that she's been under a lot of stress recently because of her mother. She states that they've an argument that she takes care of her and she has cancer issues. Into a little confrontation earlier today when patient began expressing palpitations and some mild superior anterior chest pain. States that since being in the emergency Department she's been feeling well. She does complain of some mild upper chest discomfort that she refuses to identify his pain. She was points to her lower neck. She denies any associated diaphoresis or nausea. She has no other complaints at this time. She doesn't have any symptoms of covid. No cough. The ROS documented in this emergency department record has been reviewed and confirmed by me. Those systems with pertinent positive or negative responses have been documented in the HPI. All other systems are other negative and/or noncontributory. PHYSICAL EXAM: General Impression: Alert and oriented x3, not in acute distress HEENT: Normocephalic atraumatic, extra-ocular movements intact, pupils equal and reactive to light bilaterally, mucous membranes moist. Cardiovascular: Heart regular rate and rhythm Chest: Able to complete full sentences, no retractions, no tachypnea Abdomen: abdomen soft, non-tender, non-distended, no organomegaly Musculoskeletal: Pulses present and equal in all extremities, no peripheral edema Motor: no focal deficits noted Neurological: CN II-XII grossly intact, no focal motor or sensory deficits noted Skin: Intact with no visualized rashes Psych: Normal affect and mood ED course: 55-year-old female presents to the emergency department with atypical chest pain with typical features. She has multiple risk factors. Chart review was performed. Patient's history of coronary artery disease. Her most recent stress test was in May 2019 where she had a Persantine stress test that did not show any reversible ischemia. Patient has extensive history of coronary artery disease. She states she has a scheduled stress tests in April. EKG interpretation: Ventricular rate 60, normal sinus rhythm, VA interval 154, QRS 106, QTC 454. No VA prolongation, no QTC prolongation, no ST or T-wave changes noted. EKG compared to 06/09/2019 showing no changes. Overall, this EKG is unremarkable Laboratory evaluation obtained. Mild leukocytosis of 11.3 with hemoglobin of 16.8. Likely hemoconcentration. Coag panel is unremarkable. Metabolic panel is within acceptable limits. There is mild acidosis. Chest x-ray is nonacute. Patient observed in emergency department for approximately 1 hour 30 minutes. Patient requested to be discharge. He is advised that really straw second troponin or admit patient to observation. She states that she would prefer not in that she can discharge. She'll be discharged with . She lives nearby can return to the emergency department when needed. She is also advised, around one of her symptoms acutely worsened. She understands that her workup is not complete and that a second troponin would be preferred to further risk stratify patient. She understands that she has multiple risk factors with associated chest pain that her symptoms could represent acute coronary syndrome. She is reevaluated bedside at 3:12 PM. She is denying any symptoms. Patient be discharged with strict return precautions. - Related Data Home Medications Medication Instructions Recorded Confirmed ALPRAZolam [Xanax] 0.5 mg PO BID 04/15/18 03/15/21 Loratadine [Claritin] 10 mg PO DAILY 05/05/18 03/15/21 Furosemide [Lasix] 20 mg PO BID 06/09/19 03/15/21 Metoprolol Tartrate [Lopressor] 100 mg PO BID 06/09/19 03/15/21 traMADol HCl [Ultram] 50 mg PO BID PRN 06/09/19 03/15/21 Atorvastatin [Lipitor] 80 mg PO DAILY 03/15/21 03/15/21 HYDROcodone/APAP 5-325MG [[place] 1 tab PO DAILY PRN 03/15/21 03/15/21 5-325] amLODIPine [Norvasc] 5 mg PO DAILY 03/15/21 03/15/21 lisinopriL [Zestril] 20 mg PO DAILY 03/15/21 03/15/21 Previous Rx's Medication Instructions Recorded Aspirin 81 mg PO DAILY chew 05/08/18 Allergies Allergy/AdvReac Type Severity Reaction Status Date / Time clopidogrel [From Plavix] Allergy Severe Anaphylaxis Verified 03/15/21 14:14 sulfamethoxazole AdvReac Rash & Verified 03/15/21 14:14 [From Bactrim] Vomiting Tetracyclines AdvReac Nausea & Verified 03/15/21 14:14 Vomiting & Diarrhea trimethoprim [From Bactrim] AdvReac Rash & Verified 03/15/21 14:14 Vomiting wheat AdvReac Diarrhea Verified 03/15/21 14:14 Review of Systems ROS Statement: Those systems with pertinent positive or pertinent negative responses have been documented in the HPI. ROS Other: All systems not noted in ROS Statement are negative. Past Medical History Past Medical History: Coronary Artery Disease (CAD), Chest Pain / Angina, Hearing Disorder / Deafness, Hyperlipidemia, Hypertension, Myocardial Infarction ([place]), Osteoarthritis (OA), Pneumonia, Renal Disease Additional Past Medical History / Comment(s): MIs in , occasional L leg edema since CABG with L leg vein harvesting, recurrent nephrolithiasis with surgical removal, past utis, arthritis bilateral hands and L knee, deaf L ear. Last Myocardial Infarction Date:: 04/15/18 History of Any Multi-Drug Resistant Organisms: None Reported Past Surgical History: Adenoidectomy, Section, Cholecystectomy, Coronary Bypass/CABG, Heart Catheterization, Heart Catheterization With Stent, Hysterectomy, Tonsillectomy, Tubal Ligation Additional Past Surgical History / Comment(s): 11/2014 CABG 5 vessels at [facility], PCIs with a total of 6 or 7 stents at [facility], lithotripsies x 3, colonoscopy-normal, bilateral knee arthroscopies, Past Anesthesia/Blood Transfusion Reactions: Motion Sickness, No Reported Reaction Date of Last Stent Placement:: unkn Past Psychological History: Anxiety Smoking Status: Current every day smoker Past Alcohol Use History: None Reported Past Drug Use History: Marijuana - Past Family History Father History Unknown: Yes Additional Family Medical History / Comment(s): Patient does not know anything about her father and has no contact with him. Mother Family Medical History: Cancer, Congestive Heart Failure (CHF), Dementia, Diabetes Mellitus, Fibromyalgia, Skin Disorder Additional Family Medical History / Comment(s): Mother is alive at age 73 with history of Obesity, stasis dermatitis, breast cancer with bilateral mastectomies. Son(s) Additional Family Medical History / Comment(s): Patient has one son with no major medical problems. Patient does not have any brothers or sisters. General Exam Limitations: no limitations Course Vital Signs 03/15/21 03/15/21 03/15/21 13:40 14:10 15:05 Temperature 97.7 F Pulse Rate 61 66 63 Respiratory 16 18 18 Rate Blood Pressure 157/100 131/84 146/88 O2 Sat by Pulse 99 99 100 Oximetry Medical Decision Making - Lab Data Result diagrams: 03/15/21 14:08 03/15/21 14:08 Lab Results 03/15/21 03/15/21 03/15/21 Range/Units 14:08 14:08 14:08 WBC 11.3 H (3.8-10.6) k/uL RBC 5.47 H (3.80-5.40) m/uL Hgb 16.8 H (11.4-16.0) gm/dL Hct 48.3 H (34.0-46.0) % MCV 88.2 (80.0-100.0) fL MCH 30.8 (25.0-35.0) pg MCHC 34.9 (31.0-37.0) g/dL RDW 13.7 (11.5-15.5) % Plt Count 343 (150-450) k/uL MPV 6.7 Neutrophils % 66 % Lymphocytes % 20 % Monocytes % 8 % Eosinophils % 4 % Basophils % 1 % Neutrophils # 7.5 (1.3-7.7) k/uL Lymphocytes # 2.2 (1.0-4.8) k/uL Monocytes # 1.0 (0-1.0) k/uL Eosinophils # 0.4 (0-0.7) k/uL Basophils # 0.1 (0-0.2) k/uL PT 10.3 (9.0-12.0) sec INR 1.0 (<1.2) APTT 24.7 (22.0-30.0) sec Sodium 143 (137-145) mmol/L Potassium 3.9 (3.5-5.1) mmol/L Chloride 108 H (98-107) mmol/L Carbon Dioxide 21 L (22-30) mmol/L Anion Gap 14 mmol/L BUN 16 (7-17) mg/dL Creatinine 0.73 (0.52-1.04) mg/dL Est GFR (CKD-EPI)AfAm >90 (>60 ml/min/1.73 sqM) Est GFR (CKD-EPI)NonAf >90 (>60 ml/min/1.73 sqM) Glucose 113 H (74-99) mg/dL Calcium 10.2 (8.4-10.2) mg/dL Magnesium 1.8 (1.6-2.3) mg/dL Total Bilirubin 0.6 (0.2-1.3) mg/dL AST 29 (14-36) U/L ALT 24 (4-34) U/L Alkaline Phosphatase 113 (38-126) U/L Troponin I (0.000-0.034) ng/mL Total Protein 7.9 (6.3-8.2) g/dL Albumin 4.7 (3.5-5.0) g/dL Influenza Type A (PCR) (Not Detectd) Influenza Type B (PCR) (Not Detectd) RSV (PCR) (Not Detectd) SARS-CoV-2 (PCR) (Not Detectd) 03/15/21 03/15/21 Range/Units 14:08 14:20 WBC (3.8-10.6) k/uL RBC (3.80-5.40) m/uL Hgb (11.4-16.0) gm/dL Hct (34.0-46.0) % MCV (80.0-100.0) fL MCH (25.0-35.0) pg MCHC (31.0-37.0) g/dL RDW (11.5-15.5) % Plt Count (150-450) k/uL MPV Neutrophils % % Lymphocytes % % Monocytes % % Eosinophils % % Basophils % % Neutrophils # (1.3-7.7) k/uL Lymphocytes # (1.0-4.8) k/uL Monocytes # (0-1.0) k/uL Eosinophils # (0-0.7) k/uL Basophils # (0-0.2) k/uL PT (9.0-12.0) sec INR (<1.2) APTT (22.0-30.0) sec Sodium (137-145) mmol/L Potassium (3.5-5.1) mmol/L Chloride (98-107) mmol/L Carbon Dioxide (22-30) mmol/L Anion Gap mmol/L BUN (7-17) mg/dL Creatinine (0.52-1.04) mg/dL Est GFR (CKD-EPI)AfAm (>60 ml/min/1.73 sqM) Est GFR (CKD-EPI)NonAf (>60 ml/min/1.73 sqM) Glucose (74-99) mg/dL Calcium (8.4-10.2) mg/dL Magnesium (1.6-2.3) mg/dL Total Bilirubin (0.2-1.3) mg/dL AST (14-36) U/L ALT (4-34) U/L Alkaline Phosphatase (38-126) U/L Troponin I <0.012 (0.000-0.034) ng/mL Total Protein (6.3-8.2) g/dL Albumin (3.5-5.0) g/dL Influenza Type A (PCR) Not Detected (Not Detectd) Influenza Type B (PCR) Not Detected (Not Detectd) RSV (PCR) Not Detected (Not Detectd) SARS-CoV-2 (PCR) Not Detected (Not Detectd) Disposition Clinical Impression: Chest pain Disposition: HOME SELF-CARE Condition: Fair Instructions (If sedation given, give patient instructions): Chest Pain (ED) Additional Instructions: Please seek medical attention immediately if he have any worsening or recurrent symptoms. Your initial work up was negative however you could still have underlying acute coronary syndrome. Is patient prescribed a controlled substance at d/c from ED?: No Referrals: Cj Dumnot MD [Primary Care Provider] - 1-2 days Time of Disposition: 15:13
[2021-03-15 14:23] LABS: Basophils # (A) 0.1 k/uL (0-0.2); Basophils % (A) 1 %; Eosinophils # (A) 0.4 k/uL (0-0.7); Eosinophils % (A) 4 %; HCT 48.3 % (34.0-46.0); HGB 16.8 gm/dL (11.4-16.0); Lymphocytes # (A) 2.2 k/uL (1.0-4.8); Lymphocytes % (A) 20 %; MCH 30.8 pg (25.0-35.0); MCHC 34.9 g/dL (31.0-37.0); MCV 88.2 fL (80.0-100.0); Mean Platelet Volume 6.7; Monocytes % (A) 8 %; Neutrophils # (A) 7.5 k/uL (1.3-7.7); Neutrophils % (A) 66 %; Platelet Count 343 k/uL (150-450); RBC 5.47 m/uL (3.80-5.40); RDW 13.7 % (11.5-15.5); WBC 11.3 k/uL (3.8-10.6)
[2021-03-15 14:31] LABS: ALT 24 U/L (4-34); AST 29 U/L (14-36); African American GFR (CKD) >90 (>60 ml/min/1.73 sqM); Albumin 4.7 g/dL (3.5-5.0); Alkaline Phosphatase 113 U/L (38-126); Anion Gap 14 mmol/L; Blood Urea Nitrogen 16 mg/dL (7-17); Calcium 10.2 mg/dL (8.4-10.2); Carbon Dioxide 21 mmol/L (22-30); Chloride 108 mmol/L (98-107); Glucose 113 mg/dL (74-99); Magnesium 1.8 mg/dL (1.6-2.3); Non-African American GFR(CKD) >90 (>60 ml/min/1.73 sqM); Potassium 3.9 mmol/L (3.5-5.1); Sodium 143 mmol/L (137-145); Total Bilirubin 0.6 mg/dL (0.2-1.3); Total Protein 7.9 g/dL (6.3-8.2)
[2021-03-15 14:37] LABS: Partial Thromboplastin Time 24.7 sec (22.0-30.0); Prothrombin Time 10.3 sec (9.0-12.0)
--- NOTE | 2021-03-15 14:37 | XR ---
EXAMINATION TYPE: XR chest 2V DATE OF EXAM: 03/15/2021 COMPARISON: Chest x-ray June 09, 2019 HISTORY: Chest pain upper aspect. TECHNIQUE: Frontal and lateral views of the chest are obtained. FINDINGS: There is mild chronic parenchymal change without suspicious new focal air space opacity, p leural effusion, or pneumothorax seen. The cardiac silhouette size is stable and upper limits of nor mal. Overlying sternal wires and mediastinal clips are redemonstrated. The osseous structures remai brandon intact. Cholecystectomy clips are noted. IMPRESSION: Chronic changes without acute pulmonary process.
[2021-03-15 15:07] VITALS: BP 146/88; PULSE 63
[2021-03-15] MEDS ORDERED: ASPIRIN 81 MG PO STA (15:12)
== END 2021-03-15 15:24 | disposition home or self-care (01) ==
LOC: EC 13:38
DX: R07.89 Other chest pain (principal); I11.0 Hypertensive heart disease with heart failure; I50.9 Heart failure, unspecified; E11.9 Type 2 diabetes mellitus without complications; F03.90 Unspecified dementia, unspecified severity, without behavioral disturbance, psychotic disturbance, mood disturbance, and anxiety; E78.5 Hyperlipidemia, unspecified; F41.9 Anxiety disorder, unspecified; I25.10 Atherosclerotic heart disease of native coronary artery without angina pectoris; I25.2 Old myocardial infarction; M19.041 Primary osteoarthritis, right hand; M19.042 Primary osteoarthritis, left hand; H91.90 Unspecified hearing loss, unspecified ear; F17.200 Nicotine dependence, unspecified, uncomplicated; Z79.82 Long term (current) use of aspirin; Z79.899 Other long term (current) drug therapy; Z80.3 Family history of malignant neoplasm of breast; Z82.49 Family history of ischemic heart disease and other diseases of the circulatory system; Z83.3 Family history of diabetes mellitus; Z83.49 Family history of other endocrine, nutritional and metabolic diseases; Z87.442 Personal history of urinary calculi; Z88.1 Allergy status to other antibiotic agents; Z88.2 Allergy status to sulfonamides; Z95.1 Presence of aortocoronary bypass graft
CPT/HCPCS: 36415; 71046; 80053; 83735; 84484; 85025; 85610; 85730; 87636; 93005; 99285

== ENCOUNTER 2021-05-25 16:52 | Observation (INO) | payer OTHER ==
[2021-05-25] MEDS ORDERED: ASPIRIN 81 MG PO STA (17:22)
--- NOTE | 2021-05-25 17:28 | ED ---
General Adult HPI - General Chief complaint: Chest Pain Stated complaint: chest pain Source: patient, RN notes reviewed, old records reviewed Mode of arrival: ambulatory Limitations: no limitations - History of Present Illness Initial comments: 56-year-old white female patient, presents to the emergency room with complaints of intermittent chest pain since last night. Patient states that was worse this morning when she keeps getting worse throughout the day. She is under a lot of stress as her mother just got some bad news. She states that today pain was in her chest and radiated to her left chest wall but also into her throat and in the past she has had it in her throat she has had an TN. She states that the pain is dull throughout the day but occasionally feels a sharp pain. She did check her blood pressure at home and it was 131/94. She states that she did ta ke one nitro before coming to the hospital which pain resolved but then as she got closer to the hospital and returned. She states that the diastolic number was high and it concerned her. Patient states that she just had a stress test on May 02 in scheduled to have an echo next week. Patient denies any nausea, vomiting or diarrhea. She denies any fevers. She is a smoker and does have a smoker's cough she states, but it is not changed and is not productive. Patient does have a history of coronary artery disease, hypertension, cholesterolemia, MIs in 2005 2014 6 cardiac stents and coronary artery bypass graft. -: days(s) (Started last night) Location: chest Radiation: neck, other (Left chest) Severity scale (1-10): 6 Quality: sharp, other (Throbbing) Consistency: intermittent Improves with: rest, other (Nitro) Worsens with: none Associated Symptoms: cough Treatments Prior to Arrival: Aspirin, other (One nitroglycerin) - Related Data Home Medications Medication Instructions Recorded Confirmed ALPRAZolam [Xanax] 0.5 mg PO BID 04/15/18 03/15/21 Loratadine [Claritin] 10 mg PO DAILY 05/05/18 03/15/21 Furosemide [Lasix] 20 mg PO BID 06/09/19 03/15/21 Metoprolol Tartrate [Lopressor] 100 mg PO BID 06/09/19 03/15/21 traMADol HCl [Ultram] 50 mg PO BID PRN 06/09/19 03/15/21 Atorvastatin [Lipitor] 80 mg PO DAILY 03/15/21 03/15/21 HYDROcodone/APAP 5-325MG [[place] 1 tab PO DAILY PRN 03/15/21 03/15/21 5-325] amLODIPine [Norvasc] 5 mg PO DAILY 03/15/21 03/15/21 lisinopriL [Zestril] 20 mg PO DAILY 03/15/21 03/15/21 Previous Rx's Medication Instructions Recorded Aspirin 81 mg PO DAILY chew 05/08/18 Allergies Allergy/AdvReac Type Severity Reaction Status Date / Time clopidogrel [From Plavix] Allergy Severe Anaphylaxis Verified 05/25/21 17:06 sulfamethoxazole AdvReac Rash & Verified 05/25/21 17:06 [From Bactrim] Vomiting Tetracyclines AdvReac Nausea & Verified 05/25/21 17:06 Vomiting & Diarrhea trimethoprim [From Bactrim] AdvReac Rash & Verified 05/25/21 17:06 Vomiting wheat AdvReac Diarrhea Verified 05/25/21 17:06 Review of Systems ROS Statement: Those systems with pertinent positive or pertinent negative responses have been documented in the HPI. ROS Other: All systems not noted in ROS Statement are negative. Past Medical History Past Medical History: Coronary Artery Disease (CAD), Chest Pain / Angina, Hearing Disorder / Deafness, Hyperlipidemia, Hypertension, Myocardial Infarction ([place]), Osteoarthritis (OA), Pneumonia, Renal Disease Additional Past Medical History / Comment(s): MIs in , occasional L leg edema since CABG with L leg vein harvesting, recurrent nephrolithiasis with surgical removal, past utis, arthritis bilateral hands and L knee, deaf L ear. Last Myocardial Infarction Date:: 04/15/18 History of Any Multi-Drug Resistant Organisms: None Reported Past Surgical History: Adenoidectomy, Section, Cholecystectomy, Co ronary Bypass/CABG, Heart Catheterization, Heart Catheterization With Stent, Hysterectomy, Tonsillectomy, Tubal Ligation Additional Past Surgical History / Comment(s): 11/2014 CABG 5 vessels at [facility], PCIs with a total of 6 or 7 stents at [facility], lithotripsies x 3, colonoscopy-normal, bilateral knee arthroscopies, Past Anesthesia/Blood Transfusion Reactions: Motion Sickness, No Reported Reaction Date of Last Stent Placement:: unkn Past Psychological History: Anxiety Smoking Status: Current every day smoker Past Alcohol Use History: None Reported Past Drug Use History: Marijuana - Past Family History Father History Unknown: Yes Additional Family Medical History / Comment(s): Patient does not know anything about her father and has no contact with him. Mother Family Medical History: Cancer, Congestive Heart Failure (CHF), Dementia, Diabetes Mellitus, Fibromyalgia, Skin Disorder Additional Family Medical History / Comment(s): Mother is alive at age 73 with history of Obesity, stasis dermatitis, breast cancer with bilateral mastectomies. Son(s) Additional Family Medical History / Comment(s): Patient has one son with no major medical problems. Patient does not have any brothers or sisters. General Exam Limitations: no limitations General appearance: alert, in no apparent distress, anxious Head exam: Present: atraumatic, normocephalic, normal inspection Eye exam: Present: normal appearance, PERRL, EOMI. Absent: scleral icterus, conjunctival injection, periorbital swelling Pupils: Present: normal accommodation ENT exam: Present: normal exam, normal oropharynx, mucous membranes moist, other (brown Nicotine on tongue) Neck exam: Present: normal inspection, full ROM. Absent: tenderness, meningismus, lymphadenopathy, thyromegaly Respiratory exam: Present: normal lung sounds bilaterally, wheezes (Right base), chest wall tenderness. Absent: respiratory distress, rales, rhonchi, stridor, accessory muscle use, decreased breath sounds, prolonged expiratory Cardiovascular Exam: Present: regular rate, normal rhythm, normal heart sounds. Absent: systolic murmur, diastolic murmur, rubs, gallop, clicks GI/Abdominal exam: Present: soft, normal bowel sounds. Absent: distended, tenderness, guarding, rebound, rigid Extremities exam: Present: normal inspection, full ROM, normal capillary refill. Absent: tenderness, pedal edema, joint swelling, calf tenderness Back exam: Present: full ROM. Absent: tenderness, CVA tenderness (R), CVA tenderness (L), muscle spasm, paraspinal tenderness, vertebral tenderness Neurological exam: Present: alert, oriented X3, CN II-XII intact Psychiatric exam: Present: normal affect, normal mood Skin exam: Present: warm, dry, intact, normal color. Absent: rash, cyanosis, diaphoretic, erythema, urticaria, petechiae, pallor, mottled, abrasion Course Vital Signs 07/09/21 07/09/21 17:04 18:06 Temperature 98.3 F Pulse Rate 66 55 L Respiratory 20 18 Rate Blood Pressure 148/77 135/84 O2 Sat by Pulse 99 98 Oximetry EKG Findings - EKG Results: EKG: sinus rhythm (Ventricular rate of 58, [place] interval of 0.158, QRS of 0.98, QTC of 0.435), no acute changes (03/15/2021) EKG shows: bradycardia Medical Decision Making - Medical Decision Making WBC is 11.7, hemoglobin and hematocrit is stable at 15 and 45 respectively. Glucose is 102, potassium is 3.8, magnesium is 2.0 and troponin is 0.012. EKG shows no acute changes. Chest x-ray shows no acute cardiopulmonary disease, no heart failure and no infiltrates. Patient states that she has not had pain while she was sitting in the ER waiting for test results however when her mother called while she was waiting, she did develop chest pain again. Case discussed with Dr. Velasquez, will admit pt with cardiology consult. - Lab Data Result diagrams: 05/25/21 17:27 05/25/21 17:27 Lab Results 05/25/21 05/25/21 05/25/21 Range/Units 17:27 17:27 17:27 WBC 11.7 H (3.8-10.6) k/uL RBC 5.10 (3.80-5.40) m/uL Hgb 15.8 (11.4-16.0) gm/dL Hct 45.6 (34.0-46.0) % MCV 89.5 (80.0-100.0) fL MCH 30.9 (25.0-35.0) pg MCHC 34.5 (31.0-37.0) g/dL RDW 13.8 (11.5-15.5) % Plt Count 351 (150-450) k/uL MPV 6.5 Neutrophils % 65 % Lymphocytes % 22 % Monocytes % 6 % Eosinophils % 5 % Basophils % 1 % Neutrophils # 7.6 (1.3-7.7) k/uL Lymphocytes # 2.6 (1.0-4.8) k/uL Monocytes # 0.8 (0-1.0) k/uL Eosinophils # 0.5 (0-0.7) k/uL Basophils # 0.1 (0-0.2) k/uL PT 10.1 (9.0-12.0) sec INR 0.9 (<1.2) APTT 25.1 (22.0-30.0) sec Sodium 145 (137-145) mmol/L Potassium 3.8 (3.5-5.1) mmol/L Chloride 110 H (98-107) mmol/L Carbon Dioxide 25 (22-30) mmol/L Anion Gap 10 mmol/L BUN 13 (7-17) mg/dL Creatinine 0.67 (0.52-1.04) mg/dL Est GFR (CKD-EPI)AfAm >90 (>60 ml/min/1.73 sqM) Est GFR (CKD-EPI)NonAf >90 (>60 ml/min/1.73 sqM) Glucose 102 H (74-99) mg/dL Calcium 10.1 (8.4-10.2) mg/dL Magnesium 2.0 (1.6-2.3) mg/dL Total Bilirubin 0.5 (0.2-1.3) mg/dL AST 30 (14-36) U/L ALT 30 (4-34) U/L Alkaline Phosphatase 112 (38-126) U/L Troponin I (0.000-0.034) ng/mL Total Protein 7.3 (6.3-8.2) g/dL Albumin 4.6 (3.5-5.0) g/dL 05/25/21 Range/Units 17:27 WBC (3.8-10.6) k/uL RBC (3.80-5.40) m/uL Hgb (11.4-16.0) gm/dL Hct (34.0-46.0) % MCV (80.0-100.0) fL MCH (25.0-35.0) pg MCHC (31.0-37.0) g/dL RDW (11.5-15.5) % Plt Count (150-450) k/uL MPV Neutrophils % % Lymphocytes % % Monocytes % % Eosinophils % % Basophils % % Neutrophils # (1.3-7.7) k/uL Lymphocytes # (1.0-4.8) k/uL Monocytes # (0-1.0) k/uL Eosinophils # (0-0.7) k/uL Basophils # (0-0.2) k/uL PT (9.0-12.0) sec INR (<1.2) APTT (22.0-30.0) sec Sodium (137-145) mmol/L Potassium (3.5-5.1) mmol/L Chloride (98-107) mmol/L Carbon Dioxide (22-30) mmol/L Anion Gap mmol/L BUN (7-17) mg/dL Creatinine (0.52-1.04) mg/dL Est GFR (CKD-EPI)AfAm (>60 ml/min/1.73 sqM) Est GFR (CKD-EPI)NonAf (>60 ml/min/1.73 sqM) Glucose (74-99) mg/dL Calcium (8.4-10.2) mg/dL Magnesium (1.6-2.3) mg/dL Total Bilirubin (0.2-1.3) mg/dL AST (14-36) U/L ALT (4-34) U/L Alkaline Phosphatase (38-126) U/L Troponin I <0.012 (0.000-0.034) ng/mL Total Protein (6.3-8.2) g/dL Albumin (3.5-5.0) g/dL Disposition Clinical Impression: Chest pain Disposition: ADMITTED IP TO THIS [facility] Condition: Fair Referrals: Cj Dumont MD [Primary Care Provider] - 1-2 days Decision Date: 05/25/21 Decision Time: 18:43
[2021-05-25 17:36] LABS: Basophils # (A) 0.1 k/uL (0-0.2); Basophils % (A) 1 %; Eosinophils # (A) 0.5 k/uL (0-0.7); Eosinophils % (A) 5 %; HCT 45.6 % (34.0-46.0); HGB 15.8 gm/dL (11.4-16.0); Lymphocytes # (A) 2.6 k/uL (1.0-4.8); Lymphocytes % (A) 22 %; MCH 30.9 pg (25.0-35.0); MCHC 34.5 g/dL (31.0-37.0); MCV 89.5 fL (80.0-100.0); Mean Platelet Volume 6.5; Monocytes # (A) 0.8 k/uL (0-1.0); Monocytes % (A) 6 %; Neutrophils # (A) 7.6 k/uL (1.3-7.7); Neutrophils % (A) 65 %; Platelet Count 351 k/uL (150-450); RDW 13.8 % (11.5-15.5); WBC 11.7 k/uL (3.8-10.6)
[2021-05-25 17:47] LABS: ALT 30 U/L (4-34); AST 30 U/L (14-36); African American GFR (CKD) >90 (>60 ml/min/1.73 sqM); Albumin 4.6 g/dL (3.5-5.0); Alkaline Phosphatase 112 U/L (38-126); Anion Gap 10 mmol/L; Blood Urea Nitrogen 13 mg/dL (7-17); Calcium 10.1 mg/dL (8.4-10.2); Carbon Dioxide 25 mmol/L (22-30); Chloride 110 mmol/L (98-107); Glucose 102 mg/dL (74-99); INR 0.9 (<1.2); Non-African American GFR(CKD) >90 (>60 ml/min/1.73 sqM); Partial Thromboplastin Time 25.1 sec (22.0-30.0); Potassium 3.8 mmol/L (3.5-5.1); Prothrombin Time 10.1 sec (9.0-12.0); Sodium 145 mmol/L (137-145); Total Bilirubin 0.5 mg/dL (0.2-1.3); Total Protein 7.3 g/dL (6.3-8.2)
--- NOTE | 2021-05-25 18:30 | XR ---
EXAMINATION TYPE: XR chest 2V DATE OF EXAM: 05/25/2021 COMPARISON: 03/15/2021 HISTORY: Chest pain TECHNIQUE: FINDINGS: There is no heart failure nor confluent pneumonic infiltrate. Heart size is normal. There a re sternal wires. There are chest leads. Costophrenic angles are clear. IMPRESSION: No active cardiopulmonary disease. Normal heart. No change.
[2021-05-25] MEDS ORDERED: ACETAMINOPHEN TAB 325 MG TAB PO PRN (18:47)
[2021-05-25] MEDS ORDERED: NALOXONE 0.4 MG/ML 1 ML VIAL IV PRN (18:47)
[2021-05-25] MEDS: SODIUM CHLORIDE 0.9% 1,000 ML IV SCH (19:22)
[2021-05-25] MEDS ORDERED: HYDROcodone/APAP 5-325MG 1 EACH TAB PO PRN (21:54)
[2021-05-25] MEDS ORDERED: amLODIPine 5 MG TAB PO SCH (22:00)
[2021-05-25] MEDS ORDERED: ATORVASTATIN 80 MG TAB PO SCH (22:30)
[2021-05-25] MEDS ORDERED: ALPRAZolam 0.5 MG TAB PO PRN (22:30)
[2021-05-25] MEDS: METOPROLOL TARTRATE 50 MG TAB PO SCH (22:45)
[2021-05-26 07:54] VITALS: BP 175/77; PULSE 58; RESP 16; TEMP 98
[2021-05-26] MEDS ORDERED: FUROSEMIDE 40 MG TAB PO SCH (09:00)
[2021-05-26] MEDS ORDERED: ASPIRIN 81 MG PO SCH (09:00)
[2021-05-26] MEDS ORDERED: amLODIPine 5 MG TAB PO SCH (09:00)
[2021-05-26] MEDS ORDERED: LORATADINE 10 MG TAB PO SCH (09:00)
[2021-05-26] MEDS: METOPROLOL TARTRATE 50 MG TAB PO SCH (09:36)
[2021-05-26] MEDS: SODIUM CHLORIDE 0.9% 1,000 ML IV SCH (09:36)
--- NOTE | 2021-05-26 13:22 | P.HPIM ---
History of Present Illness H&P Date: 05/26/21 Chief Complaint: Chest pain History of present illness This 56-year-old patient of Dr. Dumont with a past medical history significant for coronary artery disease, myocardial infarction in 2005 and 2014, CABG with a left leg vein harvesting in 2004, angina, hyperlipidemia, hypertension, osteoarthritis, renal disease, current every day smoker half a pack. Patient experienced intermittent chest pain since last night. Patient states that the pain worsened in the morning and continue throughout the day. She is under a lot of stress. 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 Recently she was received some upsetting news regarding her mother and experience chest pain. Patient states that chest pain and care multiple times throughout the day spec ifically when she heard the news, when she was taking care of her mother and/or when her mother called. Patient describes the pain as a dull pain throughout the day and occasionally feels a sharp pain. Patient states that she did take a nitro before coming to the hospital the pain resolved. However the culture she came to the hospital at return. Patient had a stress test on May 02 is unsure of the results. She is scheduled for echo next week patient denies any nausea or vomiting. Denies any fever or cough. At this time patient is found resting comfortably in bed in no acute distress. Patient is anxious to go home. Patient states that she thinks most of the discomfort was caused by stress. She sees her cardiology on a regular basis. Patient denies any chest pain shortness of breath nausea or vomiting at this time. Patient remains afebrile, pulse rate 50, respirations 16, blood pressure 175/77, pulse ox a 95% on room air. Review Of Systems: Constitutional: No fever, no chills, no night sweats. No weight change. No weakness, fatigue or lethargy. No daytime sleepiness. EENT: No headache. No blurred vision or double vision, no loss of vision. No loss of Hearing, no ringing in the ears, no dizziness. No nasal drainage or c ongestion. No epistaxis. No sore throat. Lungs: No shortness of breath, cough, no sputum production. No wheezing. Cardiovascular: No chest pain, no lower extremity edema. No palpitations. No paroxysmal nocturnal dyspnea. No orthopnea. No lightheadedness or dizziness. No syncopal episodes. Abdominal: no abdominal discomfort. No nausea, vomiting. no diarrhea. No constipation. No bloody or tarry stools. no loss of appetite. Genitourinary: No dysuria, increased frequency, urgency. No urinary retention. Musculoskeletal: No myalgias. No muscle weakness, no gait dysfunction, no frequent falls. No back pain. No neck pain. Integumentary: No wounds, no lesions. No rash or pruritus. No unusual bruising. No change in hair or nails. Neurologic: No aphasia. No facial droop. No change in mentation. No head injury. No headache. No paralysis. No paresthesia. Psychiatric: No depression. No anxiety. No mood swings. Endocrine: No abnormal blood sugars. No weight change. No excessive sweating or thirst. Social history: Patient is every day half a pack smoker, occasionally utilizes marijuana, denies any other illicit drug use. Patient denies EtOH. Currently primary caregiver to her mother. Previously worked as a [employer] program approximately 5 years ago. Family history: Currently lives with her and mother, he used one son who is healthy, she no siblings. Her mother has mild dysplasia, and father of an MS at unknown age. Physical examination General Appearance: Alert, cooperative, no distress, this is a 56-year-old patient who appears older stated age. Neck HEENT: Supple, no lymphadenopathy, no thyroid enlargement, no carotid bruits. Lungs: Clear to auscultation without crackles or wheezes no rhonchi, no deformity. Chest Wall: Chest wall normal expansion with deep inspiration no tenderness and no deformity was found on exam, no costochondral pain or discomfort. Heart: Regular rate and rhythm, S1, S2 normal, no murmur, rub or gallop. Back: Symmetric, no curvature, ROM normal, no CVA tenderness. Abdomen: Soft, non-tender, no rebound or rigidity, no hepatosplenomegaly. Extremities: Extremities normal, atraumatic, no cyanosis or edema. Pulses: 2+ and symmetric. Skin: Skin color, texture, tugor normal, no rashes or lesions. Neurologic: Alert oriented x3 cranial nerves II through XII intact, no motor deficit, no abnormal balance or gait Assessment and plan 1. Anginal chest pain with history of CAD, stress test on 05/02 results unknown. Echocardiogram ordered, consult for cardiology. 2. Anxiety. Continue Xanax 0.5 mg at bedtime and daily as needed. 3. Nicotine dependence, smoking cessation discussed. Nicotine patch offered declined. 4. Hyperlipidemia. Atorvastatin 80 mg by mouth 5. Hypertension. Continue Lasix 40 mg by mouth, Norvasc 5 mg by mouth, lisinopril 20 mg by mouth daily metoprolol 100 mg by mouth twice a day 6. Seasonal allergies. Continue Claritin 7. GI prophylaxis. protonix 8. DVT prophylaxis. ambulation CODE STATUS: Full code Impression and plan of care have been directed as dictated by the signing physician. Emilie Marcelino nurse practitioner acting as scribe for signing physician. Past Medical History Past Medical History: Coronary Artery Disease (CAD), Chest Pain / Angina, Hearing Disorder / Deafness, Hyperlipidemia, Hypertension, Myocardial Infarction (MS), Osteoarthritis (OA), Pneumonia, Renal Disease Additional Past Medical History / Comment(s): MIs in , occasional L leg edema since CABG with L leg vein harvesting, recurrent nephrolithiasis with surgical removal, past utis, arthritis bilateral hands and L knee, deaf L ear. Last Myocardial Infarction Date:: 04/15/18 History of Any Multi-Drug Resistant Organisms: None Reported Past Surgical History: Adenoidectomy, Section, Cholecystectomy, Coronary Bypass/CABG, Heart Catheterization, Heart Catheterization With Stent, Hysterectomy, Tonsillectomy, Tubal Ligation Additional Past Surgical History / Comment(s): 11/2014 CABG 5 vessels at [facility], PCIs with a total of 6 or 7 stents at [facility], lithotripsies x 3, colonoscopy-normal, bilateral knee arthroscopies, Past Anesthesia/Blood Transfusion Reactions: Motion Sickness, No Reported Reaction Date of Last Stent Placement:: unkn Past Psychological History: Anxiety Additional Psychological History / Comment(s): Pt resides with spouse and her mother. She helps care for her mother who has dementia and her spouse. Pt is independent. Smoking Status: Current every day smoker Past Alcohol Use History: None Reported Additional Past Alcohol Use History / Comment(s): Patient is a smoker of three-quarter to 1 pack per day since she was 15 years of age. She denies any alcohol use. 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 She states she will infrequently smoke marijuana. - Past Family History Father History Unknown: Yes Additional Family Medical History / Comment(s): Patient does not know anything about her father and has no contact with him. Mother Family Medical History: Cancer, Congestive Heart Failure (CHF), Dementia, Diabetes Mellitus, Fibromyalgia, Skin Disorder Additional Family Medical History / Comment(s): Mother is alive at age 73 with history of Obesity, stasis dermatitis, breast cancer with bilateral mastectom ies. Son(s) Additional Family Medical History / Comment(s): Patient has one son with no major medical problems. Patient does not have any brothers or sisters. Medications and Allergies Home Medications Medication Instructions Recorded Confirmed Type ALPRAZolam [Xanax] 0.5 mg PO HS 04/15/18 05/25/21 History Loratadine [Claritin] 10 mg PO DAILY 05/05/18 05/25/21 History Aspirin 81 mg PO DAILY chew 05/08/18 05/25/21 Rx Furosemide [Lasix] 40 mg PO DAILY 06/09/19 05/25/21 History Metoprolol Tartrate [Lopressor] 100 mg PO BID 06/09/19 05/25/21 History traMADol HCl [Ultram] 100 mg PO QAM 06/09/19 05/25/21 History Atorvastatin [Lipitor] 80 mg PO HS 03/15/21 05/25/21 History HYDROcodone/APAP 5-325MG [[place] 1 tab PO W/SUPPER PRN 03/15/21 05/25/21 History 5-325] amLODIPine [Norvasc] 5 mg PO DAILY 03/15/21 05/25/21 History lisinopriL [Zestril] 20 mg PO DAILY 03/15/21 05/25/21 History ALPRAZolam [Xanax] 0.5 mg PO DAILY PRN 05/25/21 05/25/21 History Allergies Allergy/AdvReac Type Severity Reaction Status Date / Time clopidogrel [From Plavix] Allergy Severe Anaphylaxis Verified 05/25/21 18:59 sulfamethoxazole AdvReac Rash & Verified 05/25/21 18:59 [From Bactrim] Vomiting Tetracyclines AdvReac Nausea & Verified 05/25/21 18:59 Vomiting & Diarrhea trimethoprim [From Bactrim] AdvReac Rash & Verified 05/25/21 18:59 Vomiting wheat AdvReac Diarrhea Verified 05/25/21 18:59 Physical Exam Vitals: Vital Signs Temp Pulse Pulse Resp BP BP BP 05/26/21 07:00 98.0 F 58 L 16 175/77 05/26/21 03:05 60 18 05/26/21 01:12 97.6 F 60 18 130/77 05/25/21 22:45 58 L 18 05/25/21 20:22 98.5 F 58 L 18 162/87 05/25/21 19:22 98.3 F 55 L 18 147/75 05/25/21 18:06 55 L 18 135/84 05/25/21 17:04 98.3 F 66 20 148/77 Pulse Ox 05/26/21 07:00 95 05/26/21 03:05 05/26/21 01:12 95 05/25/21 22:45 05/25/21 20:22 98 05/25/21 19:22 98 05/25/21 18:06 98 05/25/21 17:04 99 Intake and Output 05/25/21 05/26/21 05/26/21 22:59 06:59 14:59 Other: Voiding Method Toilet Toilet # Voids 1 2 Weight 77.111 kg Results CBC & Chem 7: 05/25/21 17:27 05/25/21 17:27 Labs: Abnormal Lab Results - Last 24 Hours (Table) 05/25/21 05/25/21 Range/Units 17:27 17:27 WBC 11.7 H (3.8-10.6) k/uL Chloride 110 H (98-107) mmol/L Glucose 102 H (74-99) mg/dL Thrombosis Risk Factor Assmnt - Choose All That Apply Each Factor Represents 1 point: Acute MS, Obesity (BMI >25) Other Risk Factors: No Other congenital or acquired thrombophilia - If yes, enter type in comment: No Thrombosis Risk Factor Assessment Total Risk Factor Score: 2 Thrombosis Risk Factor Assessment Level: Low Risk
--- NOTE | 2021-05-26 13:23 | P.DS ---
Providers Date of admission: 05/25/21 18:39 Attending physician: Christiano Reza Consults: 05/25/21 18:47 Consult Physician Urgent Consulting Provider: Grace Solomon Consult Reason/Comments: chest pain Do you want consulting provider notified?: Yes Primary care physician: Cj Dumont [facility] Course: This 56-year-old patient of Dr. Dumont with a past medical history significant for coronary artery disease, myocardial infarction in 2005 and 2014, CABG with a left leg vein harvesting in 2004, angina, hyperlipidemia, hypertension, osteoarthritis, renal disease, current every day smoker half a pack. Patient experienced intermittent chest pain since last night. Patient states that the pain worsened in the morning and continue throughout the day. She is under a lot of stress. 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 Recently she was received some upsetting news regarding her mother and experience chest pain. Patient states that chest pain and care multiple times throughout the day specifically when she heard the news, when she was taking care of her mother and/or when her mother called. Patient describes the pain as a dull pain throughout the day and occasionally feels a sharp pain. Patient states that she did take a nitro before coming to the hospital the pain resolved. However the culture she came to the hospital at return. Patient had a stress test on May 02 is unsure of the results. She is scheduled for echo next week patient denies any nausea or vomiting. Denies any fever or cough. At this time patient is found resting comfortably in bed in no acute distress. Patient is anxious to go home. Patient states that she thinks most of the discomfort was caused by stress. She sees her cardiology on a regular basis. Patient denies any chest pain shortness of breath nausea or vomiting at this time. Patient remains afebrile, pulse rate 50, respirations 16, blood pressure 175/77, pulse ox a 95% on room air. Review Of Systems: Constitutional: No fever, no chills, no night sweats. No weight change. No weakness, fatigue or lethargy. No daytime sleepiness. EENT: No headache. No blurred vision or double vision, no loss of vision. No loss of Hearing, no ringing in the ears, no dizziness. No nasal drainage or congestion. No epistaxis. No sore throat. Lungs: No shortness of breath, cough, no sputum production. No wheezing. Cardiovascular: No chest pain, no lower extremity edema. No palpitations. No paroxysmal nocturnal dyspnea. No orthopnea. No lightheadedness or dizziness. No syncopal episodes. Abdominal: no abdominal discomfort. No nausea, vomiting. no diarrhea. No constipation. No bloody or tarry stools. no loss of appetite. Genitourinary: No dysuria, increased frequency, urgency. No urinary retention. Musculoskeletal: No myalgias. No muscle weakness, no gait dysfunction, no frequent falls. No back pain. No neck pain. Integumentary: No wounds, no lesions. No rash or pruritus. No unusual bruising. No change in hair or nails. Neurologic: No aphasia. No facial droop. No change in mentation. No head injury. No headache. No paralysis. No paresthesia. Psychiatric: No depression. No anxiety. No mood swings. Endocrine: No abnormal blood sugars. No weight change. No excessive sweating or thirst. Discharge Diagnosis: 1. Anginal chest pain with history of CAD, 2. Anxiety. 3. Nicotine dependence, 4. Hyperlipidemia. 5. Hypertension. 6. Seasonal allergies. Discharge Disposition: Home with self care Impression and plan of care have been directed as dictated by the signing physician. Emilie Marcelino nurse practitioner acting as scribe for signing physician Patient Condition at Discharge: Fair Plan - Discharge Summary Discharge Rx Participant: No New Discharge Prescriptions: Continue ALPRAZolam [Xanax] 0.5 mg PO HS Loratadine [Claritin] 10 mg PO DAILY Aspirin 81 mg PO DAILY chew Metoprolol Tartrate [Lopressor] 100 mg PO BID Furosemide [Lasix] 40 mg PO DAILY traMADol HCl [Ultram] 100 mg PO QAM HYDROcodone/APAP 5-325MG [[place] 5-325] 1 tab PO W/SUPPER PRN PRN Reason: Pain lisinopriL [Zestril] 20 mg PO DAILY Atorvastatin [Lipitor] 80 mg PO HS amLODIPine [Norvasc] 5 mg PO DAILY ALPRAZolam [Xanax] 0.5 mg PO DAILY PRN PRN Reason: Anxiety Discharge Medication List ALPRAZolam [Xanax] 0.5 mg PO HS 04/15/18 [History] Loratadine [Claritin] 10 mg PO DAILY 06/19/18 [History] Aspirin 81 mg PO DAILY chew 05/08/18 [Rx] Furosemide [Lasix] 40 mg PO DAILY 06/09/19 [History] Metoprolol Tartrate [Lopressor] 100 mg PO BID 06/09/19 [History] traMADol HCl [Ultram] 100 mg PO QAM 06/09/19 [History] Atorvastatin [Lipitor] 80 mg PO HS 03/15/21 [History] HYDROcodone/APAP 5-325MG [[place] 5-325] 1 tab PO W/SUPPER PRN 03/15/21 [History] amLODIPine [Norvasc] 5 mg PO DAILY 03/15/21 [History] lisinopriL [Zestril] 20 mg PO DAILY 03/15/21 [History] ALPRAZolam [Xanax] 0.5 mg PO DAILY PRN 05/25/21 [History] Follow up Appointment(s)/Referral(s): Cj Dumont MD [Primary Care Provider] - 1-2 days Grace Solomon MD [Family Provider] - 1 Week Patient Instructions/Handouts: Chest Pain (ED) Activity/Diet/Wound Care/Special Instructions: ECHO completed 05/26/2021 activity as tolerated heart healthy diet
--- NOTE | 2021-05-26 16:49 | CONS ---
CONSULTATION CARDIOLOGY CONSULTATION NOTE: This is a 56-year-old lady with history of coronary artery disease status post CABG, who sees Dr. Solomon in my office, presented to hospital complaining of intermittent episodes of chest pain. Her mother has dementia and recently had some bad news about her, and ever since that time she has been having chest discomfort. Chest pain is sharp, precordial without clear-cut relieving or exacerbating factors and the patient is quite stressed as a result of what is happening to her mom and her chest pain clearly seems to be related to it. At the time of my evaluation, she is chest pain free and is free of cardiac symptoms. She has had 1 set of troponin that is negative and an EKG that shows sinus rhythm with nonspecific ST-T wave changes, which were noted before. She had a stress test in 2019 that did not reveal any ischemia. PAST MEDICAL HISTORY: Significant for coronary artery disease status post CABG, hypertension, and dyslipidemia. CURRENT MEDICATIONS: Include aspirin, Lipitor 80 mg daily, Zestril 20 mg daily, [place], Lasix, Norvasc, and Xanax. ALLERGIES: PLAVIX, BACTRIM, TETRACYCLINE, WHEAT. FAMILY HISTORY: Significant for premature coronary artery disease. SOCIAL HISTORY: Significant for smoking. There is no history of EtOH abuse or drug abuse. REVIEW OF SYSTEMS: HEENT is unremarkable. CARDIAC as described above. RESPIRATORY as described above. GI negative. GENITOURINARY negative ALLERGY none. SKIN negative. MUSCULOSKELETAL negative. ENDOCRINE negative. DERM negative. CONSTITUTIONAL negative. ONCOLOGICAL negative. 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 PHYSICAL EXAMINATION: Patient is comfortable at rest. Afebrile. Heart rate is 60 beats per minute. Blood pressure is 130/77, respiratory rate is 18. O2 saturation is 95%. There is no jugular venous distention. Carotid upstroke is normal. There is no bruit. CHEST exam reveals good air entry bilaterally. HEART exam reveals first and second heart sounds. No gallop. No murmur. No rub. ABDOMEN is soft, nontender. Examination of EXTREMITIES did not reveal any edema. Peripheral pulses are felt. LABS: Labs show a hemoglobin of 15.8, platelet count is 350 potassium is 3.8 creatinine is 0.67. EKG is as described above. Troponin is negative. ASSESSMENT: 1. Precordial chest pain, probably related to the stress in her life. 2. CAD status post coronary artery bypass grafting. PLAN: The patient is pain free, and her workup is essentially benign and unremarkable so far. I will obtain a 2D echo, feed her, ambulate her, hopefully home later this afternoon. RAMIRO / YOSEPH: [id number] /
[2021-05-26] MEDS ORDERED: ALPRAZolam 0.5 MG TAB PO SCH (21:00)
[2021-05-26] MEDS ORDERED: lisinopriL 20 MG TAB PO SCH (21:00)
== END 2021-05-26 14:33 | disposition home or self-care (01) ==
LOC: EC 16:52 → 6NMEDSUR 18:39
PROVIDERS: ADMIT Internal Medicine Geriatric Medicine; ATTEND Internal Medicine Geriatric Medicine
DX: I25.119 Atherosclerotic heart disease of native coronary artery with unspecified angina pectoris (principal); E78.5 Hyperlipidemia, unspecified; F41.9 Anxiety disorder, unspecified; I25.2 Old myocardial infarction; I10 Essential (primary) hypertension; F17.210 Nicotine dependence, cigarettes, uncomplicated; J30.2 Other seasonal allergic rhinitis; M19.041 Primary osteoarthritis, right hand; M19.042 Primary osteoarthritis, left hand; J41.0 Simple chronic bronchitis; H91.92 Unspecified hearing loss, left ear; F12.90 Cannabis use, unspecified, uncomplicated; R60.0 Localized edema; M19.90 Unspecified osteoarthritis, unspecified site; N28.9 Disorder of kidney and ureter, unspecified; Z79.82 Long term (current) use of aspirin; Z79.899 Other long term (current) drug therapy; Z88.2 Allergy status to sulfonamides; Z88.1 Allergy status to other antibiotic agents; Z91.018 Allergy to other foods; Z88.9 Allergy status to unspecified drugs, medicaments and biological substances; Z87.442 Personal history of urinary calculi; Z90.710 Acquired absence of both cervix and uterus; Z95.1 Presence of aortocoronary bypass graft; Z95.5 Presence of coronary angioplasty implant and graft; Z87.440 Personal history of urinary (tract) infections; Z98.891 History of uterine scar from previous surgery; Z87.01 Personal history of pneumonia (recurrent); Z90.49 Acquired absence of other specified parts of digestive tract; Z80.3 Family history of malignant neoplasm of breast; Z81.8 Family history of other mental and behavioral disorders; Z82.49 Family history of ischemic heart disease and other diseases of the circulatory system; Z83.3 Family history of diabetes mellitus; Z82.69 Family history of other diseases of the musculoskeletal system and connective tissue
CPT/HCPCS: 99285; 36415; 93005; 93306; 80053; 83735; 84484; 85025; 85610; 85730; 71046; G0378 ×2

== ENCOUNTER 2021-12-15 12:25 | Emergency (ER) | payer OTHER ==
[2021-12-15 12:30] VITALS: RESP 18
[2021-12-15] MEDS ORDERED: KETOROLAC 15 MG/ML 1 ML VIAL IVP STA (12:42)
[2021-12-15] MEDS ORDERED: SODIUM CHLORIDE 0.9% 1,000 ML IV STA (12:42)
[2021-12-15] MEDS ORDERED: METOCLOPRAMIDE 5 MG/ML 2 ML VIAL IVP STA (12:42)
--- NOTE | 2021-12-15 12:46 | ED ---
General Adult HPI - General Chief complaint: Urogenital Stated complaint: Kidney stones Time Seen by Provider: 12/15/21 12:37 Source: patient, family, RN notes reviewed Mode of arrival: ambulatory Limitations: no limitations - History of Present Illness Initial comments: Patient is a pleasant 56-year-old female presenting to the emergency department concerns for kidney stone. Onset of symptoms was yesterday. Patient has discomfort of her bilateral flanks, more so on the left side. Patient did have a episode of hematuria several days ago. Patient states history of similar symptoms previously associated with kidney stones, 3 times. Patient does have some associated nausea. No vomiting. No fevers. - Related Data Home Medications Medication Instructions Recorded Confirmed ALPRAZolam [Xanax] 0.5 mg PO HS 04/15/18 05/25/21 Loratadine [Claritin] 10 mg PO DAILY 05/05/18 05/25/21 Furosemide [Lasix] 40 mg PO DAILY 06/09/19 05/25/21 Metoprolol Tartrate [Lopressor] 100 mg PO BID 06/09/19 05/25/21 traMADol HCl [Ultram] 100 mg PO QAM 06/09/19 05/25/21 Atorvastatin [Lipitor] 80 mg PO HS 03/15/21 05/25/21 HYDROcodone/APAP 5-325MG [[place] 1 tab PO W/SUPPER PRN 03/15/21 05/25/21 5-325] amLODIPine [Norvasc] 5 mg PO DAILY 03/15/21 05/25/21 lisinopriL [Zestril] 20 mg PO DAILY 03/15/21 05/25/21 ALPRAZolam [Xanax] 0.5 mg PO DAILY PRN 05/25/21 05/25/21 Previous Rx's Medication Instructions Recorded Aspirin 81 mg PO DAILY chew 05/08/18 Ketorolac [Toradol] 10 mg PO Q6HR PRN #15 tab 12/15/21 Allergies Allergy/AdvReac Type Severity Reaction Status Date / Time clopidogrel [From Plavix] Allergy Severe Anaphylaxis Verified 12/15/21 12:26 sulfamethoxazole AdvReac Rash & Verified 12/15/21 12:26 [From Bactrim] Vomiting Tetracyclines AdvReac Nausea & Verified 12/15/21 12:26 Vomiting & Diarrhea trimethoprim [From Bactrim] AdvReac Rash & Verified 12/15/21 12:26 Vomiting wheat AdvReac Diarrhea Verified 12/15/21 12:26 Review of Systems ROS Statement: Those systems with pertinent positive or pertinent negative responses have been documented in the HPI. ROS Other: All systems not noted in ROS Statement are negative. Constitutional: Denies: fever Eyes: Denies: eye pain ENT: Denies: ear pain Respiratory: Denies: cough Cardiovascular: Denies: chest pain Endocrine: Denies: fatigue Gastrointestinal: Reports: as per HPI, abdominal pain, nausea. Denies: vomiting Genitourinary: Reports: as per HPI. Denies: dysuria Musculoskeletal: Reports: as per HPI Skin: Denies: rash Neurological: Denies: weakness Past Medical History Past Medical History: Coronary Artery Disease (CAD), Chest Pain / Angina, Heari ng Disorder / Deafness, Hyperlipidemia, Hypertension, Myocardial Infarction ([place]), Osteoarthritis (OA), Pneumonia, Renal Disease Additional Past Medical History / Comment(s): MIs in , occasional L leg edema since CABG with L leg vein harvesting, recurrent nephrolithiasis with surgical removal, past utis, arthritis bilateral hands and L knee, deaf L ear. Last Myocardial Infarction Date:: 04/15/18 History of Any Multi-Drug Resistant Organisms: None Reported Past Surgical History: Adenoidectomy, Section, Cholecystectomy, Coronary Bypass/CABG, Heart Catheterization, Heart Catheterization With Stent, Hysterectomy, Tonsillectomy, Tubal Ligation Additional Past Surgical History / Comment(s): 11/2014 CABG 5 vessels at [facility], PCIs with a total of 6 or 7 stents at [facility], lithotripsies x 3, colonoscopy-normal, bilateral knee arthroscopies, Past Anesthesia/Blood Transfusion Reactions: Motion Sickness, No Reported Reaction Date of Last Stent Placement:: unkn Past Psychological History: Anxiety Smoking Status: Current every day smoker Past Alcohol Use History: None Reported Past Drug Use History: Marijuana - Past Family History Father History Unknown: Yes Additional Family Medical History / Comment(s): Patient does not know anything about her father and has no contact with him. Mother Family Medical History: Cancer, Congestive Heart Failure (CHF), Dementia, Diabetes Mellitus, Fibromyalgia, Skin Disorder Additional Family Medical History / Comment(s): Mother is alive at age 73 with history of Obesity, stasis dermatitis, breast cancer with bilateral mast ectomies. Son(s) Additional Family Medical History / Comment(s): Patient has one son with no major medical problems. Patient does not have any brothers or sisters. General Exam Limitations: no limitations General appearance: alert, in no apparent distress Head exam: Present: normocephalic Eye exam: Present: normal appearance Neck exam: Present: normal inspection Respiratory exam: Present: normal lung sounds bilaterally Cardiovascular Exam: Present: regular rate, normal rhythm Expanded Peripheral pulses: 2+: Dorsalis Pedis (R), Dorsalis Pedis (L) GI/Abdominal exam: Present: soft, tenderness (Minimal tenderness left flank). Absent: distended, guarding, rebound, rigid Extremities exam: Present: normal inspection. Absent: pedal edema, calf tenderness Back exam: Present: CVA tenderness (R) (Minimal), CVA tenderness (L) (Mild to moderate) Neurological exam: Present: alert Psychiatric exam: Present: normal affect, normal mood Skin exam: Present: normal color Course Vital Signs 12/15/21 12:26 Temperature 97.2 F L Pulse Rate 87 Respiratory 18 Rate Blood Pressure 139/91 O2 Sat by Pulse 99 Oximetry Medical Decision Making - Medical Decision Making Patient reevaluated and updated. Patient resting comfortably in bed. Patient and family specifically updated on pulmonary nodules and need for follow-up regarding this. Patient also specifically updated on need to return for fevers. - Lab Data Result diagrams: 12/15/21 12:54 12/15/21 12:54 Lab Results 12/15/21 12/15/21 12/15/21 Range/Units 12:54 12:54 12:54 WBC 17.0 H (3.8-10.6) k/uL RBC 4.82 (3.80-5.40) m/uL Hgb 14.8 (11.4-16.0) gm/dL Hct 44.1 (34.0-46.0) % MCV 91.5 (80.0-100.0) fL MCH 30.8 (25.0-35.0) pg MCHC 33.6 (31.0-37.0) g/dL RDW 13.1 (11.5-15.5) % Plt Count 530 H (150-450) k/uL MPV 6.7 Neutrophils % 77 % Lymphocytes % 12 % Monocytes % 6 % Eosinophils % 2 % Basophils % 0 % Neutrophils # 13.2 H (1.3-7.7) k/uL Lymphocytes # 2.1 (1.0-4.8) k/uL Monocytes # 1.1 H (0-1.0) k/uL Eosinophils # 0.4 (0-0.7) k/uL Basophils # 0.1 (0-0.2) k/uL PT 10.1 (9.0-12.0) sec INR 0.9 (<1.2) APTT 25.8 (22.0-30.0) sec Sodium (137-145) mmol/L Potassium (3.5-5.1) mmol/L Chloride (98-107) mmol/L Carbon Dioxide (22-30) mmol/L Anion Gap mmol/L BUN (7-17) mg/dL Creatinine (0.52-1.04) mg/dL Est GFR (CKD-EPI)AfAm (>60 ml/min/1.73 sqM) Est GFR (CKD-EPI)NonAf (>60 ml/min/1.73 sqM) Glucose (74-99) mg/dL Calcium (8.4-10.2) mg/dL Total Bilirubin (0.2-1.3) mg/dL AST (14-36) U/L ALT (4-34) U/L Alkaline Phosphatase (38-126) U/L Total Protein (6.3-8.2) g/dL Albumin (3.5-5.0) g/dL Amylase (30-110) U/L Lipase (23-300) U/L Urine Color Yellow Urine Appearance Cloudy H (Clear) Urine pH 5.5 (5.0-8.0) Ur Specific [place] 1.020 (1.001-1.035) Urine Protein Trace H (Negative) Urine Glucose (UA) Negative (Negative) Urine Ketones Negative (Negative) Urine Blood Large H (Negative) Urine Nitrite Negative (Negative) Urine Bilirubin Negative (Negative) Urine Urobilinogen <2.0 (<2.0) mg/dL Ur Leukocyte Esterase Large H (Negative) Urine RBC 10 H (0-5) /hpf Urine WBC 70 H (0-5) /hpf Ur Squamous Epith Cells 3 (0-4) /hpf Urine Bacteria Occasional H (None) /hpf Urine Mucus Rare H (None) /hpf 12/15/21 Range/Units 12:54 WBC (3.8-10.6) k/uL RBC (3.80-5.40) m/uL Hgb (11.4-16.0) gm/dL Hct (34.0-46.0) % MCV (80.0-100.0) fL MCH (25.0-35.0) pg MCHC (31.0-37.0) g/dL RDW (11.5-15.5) % Plt Count (150-450) k/uL MPV Neutrophils % % Lymphocytes % % Monocytes % % Eosinophils % % Basophils % % Neutrophils # (1.3-7.7) k/uL Lymphocytes # (1.0-4.8) k/uL Monocytes # (0-1.0) k/uL Eosinophils # (0-0.7) k/uL Basophils # (0-0.2) k/uL PT (9.0-12.0) sec INR (<1.2) APTT (22.0-30.0) sec Sodium 142 (137-145) mmol/L Potassium 3.6 (3.5-5.1) mmol/L Chloride 110 H (98-107) mmol/L Carbon Dioxide 23 (22-30) mmol/L Anion Gap 9 mmol/L BUN 18 H (7-17) mg/dL Creatinine 0.70 (0.52-1.04) mg/dL Est GFR (CKD-EPI)AfAm >90 (>60 ml/min/1.73 sqM) Est GFR (CKD-EPI)NonAf >90 (>60 ml/min/1.73 sqM) Glucose 115 H (74-99) mg/dL Calcium 9.5 (8.4-10.2) mg/dL Total Bilirubin 0.6 (0.2-1.3) mg/dL AST 32 (14-36) U/L ALT 47 H (4-34) U/L Alkaline Phosphatase 110 (38-126) U/L Total Protein 7.3 (6.3-8.2) g/dL Albumin 3.8 (3.5-5.0) g/dL Amylase 54 (30-110) U/L Lipase 57 (23-300) U/L Urine Color Urine Appearance (Clear) Urine pH (5.0-8.0) Ur Specific [place] (1.001-1.035) Urine Protein (Negative) Urine Glucose (UA) (Negative) Urine Ketones (Negative) Urine Blood (Negative) Urine Nitrite (Negative) Urine Bilirubin (Negative) Urine Urobilinogen (<2.0) mg/dL Ur Leukocyte Esterase (Negative) Urine RBC (0-5) /hpf Urine WBC (0-5) /hpf Ur Squamous Epith Cells (0-4) /hpf Urine Bacteria (None) /hpf Urine Mucus (None) /hpf - Radiology Data Radiology results: report reviewed (Computed tomography scan shows multiple pulmonary nodules. Mild right-sided hydronephrosis. Possible distal right ureteral stone.) Disposition Clinical Impression: Kidney stone Disposition: HOME SELF-CARE Condition: Stable Instructions (If sedation given, give patient instructions): Kidney Stones (ED) Additional Instructions: Please follow-up primary care physician beginning of the week. Have primary care physician review computed tomography scan and follow-up for pulmonary nodules. Please also follow-up with urology, number provided. [facility] Return for any fevers, increased pain, uncontrolled vomiting, worsening symptoms or other concerns. Prescriptions: Ketorolac [Toradol] 10 mg PO Q6HR PRN #15 tab PRN Reason: Pain Is patient prescribed a controlled substance at d/c from ED?: No Referrals: Cj Dumont MD [Primary Care Provider] - 1-2 days Time of Disposition: 14:39
[2021-12-15 13:15] LABS: Basophils # (A) 0.1 k/uL (0-0.2); Basophils % (A) 0 %; Eosinophils # (A) 0.4 k/uL (0-0.7); Eosinophils % (A) 2 %; HCT 44.1 % (34.0-46.0); HGB 14.8 gm/dL (11.4-16.0); Lymphocytes # (A) 2.1 k/uL (1.0-4.8); Lymphocytes % (A) 12 %; MCH 30.8 pg (25.0-35.0); MCHC 33.6 g/dL (31.0-37.0); MCV 91.5 fL (80.0-100.0); Mean Platelet Volume 6.7; Monocytes # (A) 1.1 k/uL (0-1.0); Monocytes % (A) 6 %; Neutrophils # (A) 13.2 k/uL (1.3-7.7); Neutrophils % (A) 77 %; Platelet Count 530 k/uL (150-450); RBC 4.82 m/uL (3.80-5.40); RDW 13.1 % (11.5-15.5)
[2021-12-15 13:16] LABS: Appearance,Urine Cloudy (Clear); Bacteria,Urine Occasional /hpf; Bilirubin,Urine Negative (Negative); Blood,Urine Large (Negative); Color,Urine Yellow; Glucose,Urine (UA) Negative (Negative); Ketones,Urine Negative (Negative); Leukocyte Esterase,Urine Large (Negative); Mucus,Urine Rare /hpf; Nitrite,Urine Negative (Negative); PH, Urine 5.5 (5.0-8.0); Protein,Urine Trace (Negative); RBC,Urine 10 /hpf (0-5); Squamous Epithelial Cell,Urine 3 /hpf (0-4); Urobilinogen,Urine <2.0 mg/dL (<2.0); WBC,Urine 70 /hpf (0-5)
[2021-12-15 13:19] LABS: INR 0.9 (<1.2); Partial Thromboplastin Time 25.8 sec (22.0-30.0); Prothrombin Time 10.1 sec (9.0-12.0)
[2021-12-15 13:54] LABS: ALT 47 U/L (4-34); AST 32 U/L (14-36); African American GFR (CKD) >90 (>60 ml/min/1.73 sqM); Albumin 3.8 g/dL (3.5-5.0); Alkaline Phosphatase 110 U/L (38-126); Amylase 54 U/L (30-110); Anion Gap 9 mmol/L; Blood Urea Nitrogen 18 mg/dL (7-17); Calcium 9.5 mg/dL (8.4-10.2); Carbon Dioxide 23 mmol/L (22-30); Chloride 110 mmol/L (98-107); Glucose 115 mg/dL (74-99); Lipase 57 U/L (23-300); Non-African American GFR(CKD) >90 (>60 ml/min/1.73 sqM); Potassium 3.6 mmol/L (3.5-5.1); Sodium 142 mmol/L (137-145); Total Bilirubin 0.6 mg/dL (0.2-1.3); Total Protein 7.3 g/dL (6.3-8.2)
--- NOTE | 2021-12-15 14:07 | CT ---
EXAMINATION TYPE: CT abdomen pelvis wo con DATE OF EXAM: 12/15/2021 COMPARISON: None HISTORY: Bilateral flank pain, more on the Rt, history or renal stones CT DLP: 663.6 mGycm Automated exposure control for dose reduction was used. TECHNIQUE: Helical acquisition of images was performed from the lung bases through the pelvis. FINDINGS: Lung bases are clear. There are multiple pulmonary nodules the largest of which is in the right lung base measures 7.[address] of the chest is recommended for further evaluation. There is no organomegaly of the solid visceral organs are normal. There are multiple calcifications in the left kidney. Mild right hydronephrosis versus impression 1 p ossible to 3 mm calcifications in the distal right ureter 1 year the UVJ. There is no free intraperitoneal air or fluid. The bowel loops are normal in caliber and there is no evidence of obstruction. No inflammatory changes are identified in the mesentery. There is an aortic stent graft adenopathy or hemorrhage. IMPRESSION: 1. Multiple pulmonary nodules. CT of the chest recommended for further evaluation on a nonemergent ba sis. Right lower lobe nodule is 7.6 mm in size. 2. Mild hydronephrosis the right kidney with one possibly 2 distal 3 mm right ureteral calculi. 3. Nonobstructing left renal calcifications. 4. Stent graft without evidence of retroperitoneal hemorrhage.
[2021-12-15] MEDS ORDERED: cefTRIAXone IN SWFI 1,000 MG/10 ML SYRINGE IVP STA (14:39)
[2021-12-15 15:09] VITALS: BP 124/85; PULSE 69; TEMP 97.8
== END 2021-12-15 14:33 | disposition home or self-care (01) ==
LOC: EC 12:25
DX: N20.0 Calculus of kidney (principal); I25.10 Atherosclerotic heart disease of native coronary artery without angina pectoris; E78.5 Hyperlipidemia, unspecified; I10 Essential (primary) hypertension; I25.2 Old myocardial infarction; M19.90 Unspecified osteoarthritis, unspecified site; F41.9 Anxiety disorder, unspecified; F17.200 Nicotine dependence, unspecified, uncomplicated; F12.90 Cannabis use, unspecified, uncomplicated; Z79.82 Long term (current) use of aspirin; Z88.1 Allergy status to other antibiotic agents; Z88.2 Allergy status to sulfonamides; Z90.49 Acquired absence of other specified parts of digestive tract; Z95.1 Presence of aortocoronary bypass graft; Z90.710 Acquired absence of both cervix and uterus; Z98.51 Tubal ligation status
CPT/HCPCS: 99284; 96374; 96375 ×2; 96361 ×2; 36415; 80053; 82150; 83690; 85025; 85610; 85730; 81001; 87086; 87077; 87186; 74176; J2765; J0696; J1885

== ENCOUNTER 2025-01-29 13:00 | Observation (INO) | payer MEDICARE, OTHER ==
--- NOTE | 2025-01-29 13:22 | ED ---
General Adult HPI - General Stated complaint: Speech problems Time Seen by Provider: 01/29/25 13:01 Source: patient, EMS, RN notes reviewed Mode of arrival: EMS Limitations: no limitations - History of Present Illness Initial comments: Patient is a 59-year-old female present to the emergency department with concerns for speech problems. Onset of symptoms was around a week ago. Patient complains of her speech sounding abnormal. Patient also complains of paresthesias and feeling like her face is melting off. Paresthesias are mostly in the left side of her face as well as somewhat throughout her body. No weakness. No confusion. No headache. - Related Data Home Medications Medication Instructions Recorded Confirmed ALPRAZolam [Xanax] 0.5 mg PO HS PRN 04/15/18 01/29/25 Furosemide [Lasix] 20 mg PO DAILY 06/09/19 01/29/25 Metoprolol Tartrate [Lopressor] 100 mg PO BID 06/09/19 01/29/25 traMADol HCl [Ultram] 50 mg PO W/SUPPER 06/09/19 01/29/25 Atorvastatin [Lipitor] 80 mg PO HS 03/15/21 01/29/25 amLODIPine [Norvasc] 5 mg PO BID-W/MEALS 03/15/21 01/29/25 Albuterol Inhaler [Ventolin Hfa 2 puff INHALATION RT-Q6H PRN 01/29/25 01/29/25 Inhaler] Baclofen 10 mg PO TID PRN 01/29/25 01/29/25 Citalopram Hydrobromide [CeleXA] 40 mg PO W/SUPPER 01/29/25 01/29/25 Dicyclomine [Bentyl] 10 mg PO BID-W/MEALS 01/29/25 01/29/25 Donepezil [Aricept] 10 mg PO HS 01/29/25 01/29/25 Ezetimibe [Zetia] 10 mg PO HS 01/29/25 01/29/25 Fluticasone Nasal [place] [Flonase 1 spray EA NOSTRIL DAILY PRN 01/29/25 01/29/25 Nasal [place]] HYDROcodone/APAP 10-325MG [[place] 1 tab PO DAILY 01/29/25 01/29/25 10-325] Isosorbide Mononitrate ER [Imdur] 30 mg PO DAILY 01/29/25 01/29/25 Memantine [Namenda] 10 mg PO BID 01/29/25 01/29/25 Montelukast [Singulair] 10 mg PO HS 01/29/25 01/29/25 Ondansetron Odt [Zofran Odt] 4 mg PO Q8H PRN 01/29/25 01/29/25 hydrALAZINE HCL [Apresoline] 50 mg PO BID 01/29/25 01/29/25 lisinopriL 40 mg PO DAILY 01/29/25 01/29/25 Previous Rx's Medication Instructions Recorded Aspirin 81 mg PO DAILY chew 05/08/18 Allergies Allergy/AdvReac Type Severity Reaction Status Date / Time clopidogrel [From Plavix] Allergy Severe Anaphylaxis Verified 01/29/25 14:04 sulfamethoxazole AdvReac Rash & Verified 01/29/25 14:04 [From Bactrim] Vomiting Tetracyclines AdvReac Nausea & Verified 01/29/25 14:04 Vomiting & Diarrhea trimethoprim [From Bactrim] AdvReac Rash & Verified 01/29/25 14:04 Vomiting wheat AdvReac Diarrhea Verified 01/29/25 14:04 Review of Systems ROS Statement: Those systems with pertinent positive or pertinent negative responses have been documented in the HPI. ROS Other: All systems not noted in ROS Statement are negative. Constitutional: Denies: fever Eyes: Denies: eye pain ENT: Denies: ear pain Respiratory: Denies: dyspnea Cardiovascular: Denies: chest pain Endocrine: Denies: fatigue Gastrointestinal: Denies: abdominal pain Musculoskeletal: Denies: back pain Neurological: Reports: as per HPI, paresthesias. Denies: headache, weakness Past Medical History Past Medical History: Coronary Artery Disease (CAD), Chest Pain / Angina, Hearing Disorder / Deafness, Hyperlipidemia, Hypertension, Myocardial Infarction ([place]), Osteoarthritis (OA), Pneumonia, Renal Disease Additional Past Medical History / Comment(s): MIs in 2005/2014, occasional L leg edema since CABG with L leg vein harvesting, recurrent nephrolithiasis with surgical removal, past utis, arthritis bilateral hands and L knee, deaf L ear. Last Myocardial Infarction Date:: 04/15/18 History of Any Multi-Drug Resistant Organisms: None Reported Past Surgical History: Adenoidectomy, Section, Cholecystectomy, Coronary Bypass/CABG, Heart Catheterization, Heart Catheterization With Stent, Hysterectomy, Tonsillectomy, Tubal Ligation Additional Past Surgical History / Comment(s): 11/2014 CABG 5 vessels at [facility], PCIs with a total of 6 or 7 stents at [facility], lithotripsies x 3, colonoscopy-normal, bilateral knee arthroscopies, Past Anesthesia/Blood Transfusion Reactions: Motion Sickness, No Reported React ion Date of Last Stent Placement:: unkn Past Psychological History: Anxiety Smoking Status: Former smoker Past Alcohol Use History: None Reported Past Drug Use History: Marijuana - Past Family History Father History Unknown: Yes Additional Family Medical History / Comment(s): Patient does not know anything about her father and has no contact with him. Mother Family Medical History: Cancer, Congestive Heart Failure (CHF), Dementia, Diabetes Mellitus, Fibromyalgia, Skin Disorder Additional Family Medical History / Comment(s): Mother is alive at age 73 with history of Obesity, stasis dermatitis, breast cancer with bilateral mastectom ies. Son(s) Additional Family Medical History / Comment(s): Patient has one son with no major medical problems. Patient does not have any brothers or sisters. General Exam Limitations: no limitations General appearance: alert, in no apparent distress Head exam: Present: normocephalic Eye exam: Present: normal appearance, PERRL, EOMI ENT exam: Present: normal oropharynx Neck exam: Present: normal inspection Respiratory exam: Present: normal lung sounds bilaterally Cardiovascular Exam: Present: regular rate, normal rhythm GI/Abdominal exam: Present: soft. Absent: tenderness Extremities exam: Present: normal inspection. Absent: pedal edema, calf tenderness Neurological exam: Present: alert Expanded Neurological exam: Present: other ( dysarthria) Cranial nerves: EOM's Intact: Normal, Facial Sensation: Normal Sensory exam: Upper Extremity Light Touch: Normal, Lower Extremity Light Touch: Normal Motor strength exam: RUE: 5, LUE: 5, RLE: 5, LLE: 5 Eye Response: (4) open spontaneously Motor Response: (6) obeys commands Verbal Response: (5) oriented Psychiatric exam: Present: normal affect, normal mood Skin exam: Present: normal color Course Vital Signs 01/29/25 01/29/25 01/29/25 13:06 13:32 14:40 Temperature 98.0 F Pulse Rate 50 L 52 L Respiratory 14 14 16 Rate Blood Pressure 111/66 113/76 127/71 O2 Sat by Pulse 97 98 Oximetry EKG Findings - EKG Results: EKG: interpreted by ERMD (Right axis. Nonspecific ST-T. Inferior T wave inversion.), sinus rhythm, normal QRS EKG shows: bradycardia Medical Decision Making - Medical Decision Making Was pt. sent in by a medical professional or institution (, PA, PHOTOGRAVURE PRESS OPERATOR, urgent care, hospital, or halfway...) When possible be specific @ -Patient was sent in by urgent care Did you speak to anyone other than the patient for history (EMS, parent, family, police, friend...)? What history was obtained from this source @ -No Did you review nursing and triage notes (agree or disagree)? Why? @ -I reviewed and agree with nursing and triage notes Were old charts reviewed (outside hosp., previous admission, EMS record, old EKG, old radiological studies, urgent care reports/EKG's, halfway records)? Report findings @ -Limited chart from urgent care reviewed Differential Diagnosis (chest pain, altered mental status, abdominal pain women, abdominal pain men, vaginal bleeding, weakness, fever, dyspnea, syncope, headache, dizziness, GI bleed, back pain, seizure, CVA, palpatations, mental health, musculoskeletal)? @ -Differential Weakness: Hypoglycemia, shock, sepsis, hyponatremia, anemia, infection, VT, ETOH, adverse medicine reaction, overdose, stroke, this is not meant to be an all-inclusive list. EKG interpreted by me (3pts min.). @ -As above X-rays interpreted by me (1pt min.). @ -Chest x-ray does not reveal acute abnormality CT interpreted by me (1pt min.). @ -CT scan of the brain without acute abnormality U/S interpreted by me (1pt. min.). @ -None done What testing was considered but not performed or refused? (CT, X-rays, U/S, labs)? Why? @ -None What meds were considered but not given or refused? Why? @ -None Did you discuss the management of the patient with other professionals (professionals i.e. , CHET, PHOTOGRAVURE PRESS OPERATOR, lab, RT, psych nurse, high school social studies teacher, tire repair mechanic, teacher, nuclear officer, case coordinator)? Give summary @ -Case was discussed with Dr. Jose who will admit covering Dr. Colindres Was smoking cessation discussed for >3mins.? @ -No Was critical care preformed (if so, how long)? @ -No Were there social determinants of health that impacted care today? How? (Homelessness, low income, unemployed, alcoholism, drug addiction, tra nsportation, low edu. Level, literacy, decrease access to med. care, correction, rehab)? @ -No Was there de-escalation of care discussed even if they declined (Discuss DNR or withdrawal of care, Hospice)? DNR status @ -No What co-morbidities impacted this encounter? (DM, HTN, Smoking, COPD, CAD, Cancer, CVA, ARF, Chemo, Hep., AIDS, mental health diagnosis, sleep apnea, morbid obesity)? @ -None Was patient admitted / discharged? Hospital course, mention meds given and route, prescriptions, significant lab abnormalities, going to OR and other pertinent info. @ -Patient presents with new onset dysarthria. Patient also has paresthesias. No new weakness or loss of sensation on exam. Head CT unremarkable. Cause of dysarthria is unclear. Patient did start several medications recently however b [facility] overview does not reveal any high risk medications. Patient will be admitted with neurology consult. Patient reevaluated and updated. Admission orders written. No improvement with Ativan Undiagnosed new problem with uncertain prognosis? @ -No Drug Therapy requiring intensive monitoring for toxicity (Heparin, Nitro, Insulin, Cardizem)? @ -No Were any procedures done? @ -No Diagnosis/symptom? @ -Dysarthria Acute, or Chronic, or Acute on Chronic? @ -Acute Uncomplicated (without systemic symptoms) or Complicated (systemic symptoms)? @ -Default Side effects of treatment? @ -No Exacerbation, Progression, or Severe Exacerbation? @ -No Poses a threat to life or bodily function? How? (Chest pain, [place], VT, pneumonia, PE, COPD, DKA, ARF, appy, cholecystitis, CVA, Diverticulitis, Homicidal, Suicidal, threat to staff... and all critical care pts) @ -No - Lab Data Result diagrams: 01/29/25 13:23 01/29/25 13:23 Lab Results 01/29/25 01/29/25 01/29/25 Range/Units 13:23 13:23 13:23 WBC 13.4 H (3.8-10.6) k/uL RBC 4.70 (3.80-5.40) m/uL Hgb 13.6 (11.4-16.0) gm/dL Hct 43.8 (34.0-46.0) % MCV 93.2 (80.0-100.0) fL MCH 29.0 (25.0-35.0) pg MCHC 31.1 (31.0-37.0) g/dL RDW 14.3 (11.5-15.5) % Plt Count 522 H (150-450) k/uL MPV 7.3 Neutrophils % 79 % Lymphocytes % 11 % Monocytes % 4 % Eosinophils % 5 % Basophils % 0 % Neutrophils # 10.6 H (1.3-7.7) k/uL Lymphocytes # 1.4 (1.0-4.8) k/uL Monocytes # 0.6 (0-1.0) k/uL Eosinophils # 0.7 (0-0.7) k/uL Basophils # 0.0 (0-0.2) k/uL Sodium 139 (137-145) mmol/L Potassium 4.4 (3.5-5.1) mmol/L Chloride 109 H (98-107) mmol/L Carbon Dioxide 17 L (22-30) mmol/L Anion Gap 13 mmol/L BUN 34 H (7-17) mg/dL Creatinine 1.38 H (0.52-1.04) mg/dL Est GFR (CKD-EPI)AfAm 49 (>60 ml/min/1.73 sqM) Est GFR (CKD-EPI)NonAf 43 (>60 ml/min/1.73 sqM) Glucose 134 H (74-99) mg/dL Plasma Lactic Acid [place] 3.3 H* (0.7-2.0) mmol/L Calcium 9.7 (8.4-10.2) mg/dL Magnesium 2.0 (1.6-2.3) mg/dL Total Bilirubin 0.6 (0.2-1.3) mg/dL AST 36 (14-36) U/L ALT 44 H (4-34) U/L Alkaline Phosphatase 79 (38-126) U/L Total Protein 6.5 (6.3-8.2) g/dL Albumin 3.8 (3.5-5.0) g/dL Disposition Clinical Impression: Dysarthria Disposition: ADMITTED IP TO THIS HOSP Is patient prescribed a controlled substance at d/c from ED?: No Referrals: Cj Dumont [Primary Care Provider] - 1-2 days Time of Disposition: 15:31
[2025-01-29] MEDS: LORazepam 2 MG/ML INJ IV STA (13:30)
[2025-01-29 13:35] LABS: Basophils % (A) 0 %; Eosinophils # (A) 0.7 k/uL (0-0.7); Eosinophils % (A) 5 %; HCT 43.8 % (34.0-46.0); HGB 13.6 gm/dL (11.4-16.0); Lymphocytes # (A) 1.4 k/uL (1.0-4.8); Lymphocytes % (A) 11 %; MCHC 31.1 g/dL (31.0-37.0); MCV 93.2 fL (80.0-100.0); Mean Platelet Volume 7.3; Monocytes # (A) 0.6 k/uL (0-1.0); Monocytes % (A) 4 %; Neutrophils # (A) 10.6 k/uL (1.3-7.7); Neutrophils % (A) 79 %; Platelet Count 522 k/uL (150-450); RDW 14.3 % (11.5-15.5); WBC 13.4 k/uL (3.8-10.6)
--- NOTE | 2025-01-29 13:48 | XR ---
EXAMINATION TYPE: XR chest 2V DATE OF EXAM: 01/29/2025 1:43 PM COMPARISON: Chest radiographs from 05/25/2021 TECHNIQUE: XR chest 2V Frontal and lateral views of the chest. CLINICAL INDICATION:Female, 59 years old with history of Weakness; FINDINGS: Lungs/Pleura: There is no evidence of pleural effusion, focal consolidation, or pneumothorax. Pulmonary vascularity: Unremarkable. Heart/mediastinum: Cardiomediastinal silhouette is enlarged and stable. Musculoskeletal: No acute osseous pathology. Midline sternotomy wires are noted and stable. Other findings: Surgical clips in the upper abdomen. IMPRESSION: Chronic changes without acute pulmonary process. [facility], , 01/29/2025 1:46 PM
[2025-01-29 13:58] LABS: ALT 44 U/L (4-34); AST 36 U/L (14-36); African American GFR (CKD) 49 (>60 ml/min/1.73 sqM); Albumin 3.8 g/dL (3.5-5.0); Alkaline Phosphatase 79 U/L (38-126); Anion Gap 13 mmol/L; Blood Urea Nitrogen 34 mg/dL (7-17); Calcium 9.7 mg/dL (8.4-10.2); Carbon Dioxide 17 mmol/L (22-30); Chloride 109 mmol/L (98-107); Glucose 134 mg/dL (74-99); Non-African American GFR(CKD) 43 (>60 ml/min/1.73 sqM); Potassium 4.4 mmol/L (3.5-5.1); Sodium 139 mmol/L (137-145); Total Bilirubin 0.6 mg/dL (0.2-1.3); Total Protein 6.5 g/dL (6.3-8.2)
--- NOTE | 2025-01-29 14:06 | CT ---
EXAMINATION TYPE: CT brain wo con CT DLP: 1089.4 mGycm, Automated exposure control for dose reduction was used. DATE OF EXAM: 01/29/2025 1:51 PM COMPARISON: None. CLINICAL INDICATION:Female, 59 years old with history of weakness, left sided weakness and difficulty speaking words. TECHNIQUE: Brain: Multiple axial CT images of the brain were obtained without IV contrast. . Coronal and sagitta l reformats reviewed. FINDINGS: Brain: Extra-axial spaces: No abnormal extra-axial fluid collections. Ventricular system: Within normal limits Cerebral parenchyma: Cerebral atrophy involving the bilateral frontal lobes. No acute intraparenchyma l hemorrhage or mass effect. The lomas-white junction is well differentiated. Cerebellum: Unremarkable. Mass effect: No evidence of midline shift. Intracranial vasculature: Atherosclerotic calcifications of the intracranial vessels. Soft tissues: Normal. Calvarium/osseous structures: No depressed skull fracture. Paranasal sinuses and mastoid air cells: Clear Visualized orbits: Orbital contents are intact. IMPRESSION: No acute intracranial process. [facility], , 01/29/2025 2:03 PM
[2025-01-29] MEDS ORDERED: ONDANSETRON ODT 4 MG TAB PO PRN (15:32)
[2025-01-29] MEDS ORDERED: FLUTICASONE NASAL 50MCG/SPRAY 16GM BTL EA NOSTRIL PRN (15:32)
[2025-01-29] MEDS ORDERED: BACLOFEN 10 MG TAB PO PRN (15:32)
--- NOTE | 2025-01-29 16:21 | US ---
EXAMINATION TYPE: US carotid duplex BILAT DATE OF EXAM: 01/29/2025 COMPARISON: NONE CLINICAL INDICATION: Female, 59 years old with history of Stenosis; Numbness/tingling. Difficulty spe aking Additional History: R47.0- Aphasia and/or Dsyphasia TECHNIQUE: Grayscale, color Doppler and spectral Doppler evaluation of the bilateral carotid systems and vertebral arteries. Indirect Doppler criteria was utilized. FINDINGS: EXAM MEASUREMENTS: RIGHT: Peak Systolic Velocity (PSV) cm/sec ----- Right CCA: 65.3 ----- Right ICA: 74.0 ----- Right ECA: 95.8 ICA/CCA ratio: 1.13 RIGHT: End Diastole cm/sec ----- Right CCA: 13.4 ----- Right ICA: 0.0 ----- Right ECA: 0.0 LEFT: Peak Systolic Velocity (PSV) cm/sec ----- Left CCA: 75.8 ----- Left ICA: 118 ----- Left ECA: 135 ICA/CCA ratio: 1.56 LEFT: End Diastole cm/sec ----- Left CCA: 13.9 ----- Left ICA: 14.8 ----- Left ECA: 0.0 VERTEBRALS (direction of flow): Right Vertebral: Antegrade Left Vertebral: Antegrade Rhythm: Normal PERSONAL CONSULTANT NOTES: *Technical limitations, deep bifurcations. No evidence of significant stenosis as visualized Color Doppler imaging shows patency with blood flow throughout the carotid artery. Spectral waveforms are within normal limits. IMPRESSION: No hemodynamically significant stenosis. Criteria for Assigning % of Stenosis / Diameter reduction (Estimation based on the indirect measurements of the internal carotid artery velocities (ICA PSV). 1. Normal (no stenosis)=ICA PSV < 125 cm/s: ratio < 2.0: ICA EDV<40 cm/s. 2. Less than 50% stenosis=ICA PSV < 125 cm/s: ratio < 2.0: ICA EDV<40 cm/s. 3. 50 to 69% stenosis=ICA PSV of 125 to 230 cm/s: ration 2.0 ? 4.0: ICA EDV 40-100 cm/s. 4. Greater than 70% stenosis to near occlusion= ICA PSV > 230 cm/s: ratio > 4.0: ICA EDV > 100 cm/s. 5. Near occlusion= ICA PSV velocities may be low or undetectable: variable ratio and ICA EDV. 6. Total occlusion=unable to detect flow. [facility], , 01/29/2025 4:19 PM
[2025-01-29] MEDS: ASPIRIN 325 MG TAB PO STA (16:58)
[2025-01-29] MEDS: SODIUM CHLORIDE 0.9% 1,000 ML IV SCH (16:58)
[2025-01-29] MEDS: amLODIPine 5 MG TAB PO SCH (18:12)
[2025-01-29] MEDS: traMADol 50 MG TAB PO SCH (18:12)
[2025-01-29] MEDS: CITALOPRAM HYDROBROMIDE 20 MG TAB PO SCH (19:56)
[2025-01-29] MEDS: DICYCLOMINE 10 MG CAP PO SCH (19:56)
[2025-01-29] MEDS: MONTELUKAST 10 MG TAB PO SCH (21:02)
[2025-01-29] MEDS: METOPROLOL TARTRATE 50 MG TAB PO SCH (21:02)
[2025-01-29] MEDS: MEMANTINE 10 MG TAB PO SCH (21:03)
[2025-01-29] MEDS: EZETIMIBE 10 MG TAB PO SCH (21:03)
[2025-01-29] MEDS: hydrALAZINE HCL 50 MG TAB PO SCH (21:03)
[2025-01-29] MEDS: DONEPEZIL 10 MG TAB PO SCH (21:03)
[2025-01-29] MEDS: ATORVASTATIN 80 MG TAB PO SCH (21:03)
[2025-01-30] MEDS: ASPIRIN 325 MG TAB PO SCH (08:49)
[2025-01-30] MEDS: FUROSEMIDE 20 MG TAB PO SCH (08:49)
[2025-01-30] MEDS: ISOSORBIDE MONONITRATE ER 30 MG TAB.ER.24H PO SCH (08:50)
[2025-01-30] MEDS: HYDROcodone/APAP 10-325MG 1 EACH TAB PO SCH (08:50)
[2025-01-30] MEDS: lisinopriL 20 MG TAB PO SCH (08:50)
[2025-01-30 09:33] LABS: Chol/HDL Ratio 2.76 Ratio; LDL Cholesterol,Calculated 38.1 mg/dL (0.0-131.0)
[2025-01-30] MEDS: ALBUTEROL HFA INHALER INHALATION PRN (11:02)
[2025-01-30 13:02] LABS: Appearance,Urine Clear (Clear); Bacteria,Urine Rare /hpf; Bilirubin,Urine Negative (Negative); Blood,Urine Negative (Negative); Color,Urine Colorless; Glucose,Urine (UA) Negative (Negative); Hyaline Casts,Urine 4 /lpf (0-2); Ketones,Urine Negative (Negative); Leukocyte Esterase,Urine Small (Negative); Mucus,Urine Rare /hpf; Nitrite,Urine Negative (Negative); Protein,Urine Negative (Negative); RBC,Urine 7 /hpf (0-5); Specific Gravity,Urine 1.012 (1.001-1.035); Squamous Epithelial Cell,Urine 1 /hpf (0-4); Urobilinogen,Urine <2.0 mg/dL (<2.0); WBC,Urine 18 /hpf (0-5)
--- NOTE | 2025-01-30 13:27 | P.HPIM ---
History of Present Illness H&P Date: 01/29/25 Chief Complaint: Dysarthria 59-year-old female, history of hypertension, hyperlipidemia, CAD/ID, osteoarthritis, chronic kidney disease, present to the emergency department with concerns for speech problems. Onset of symptoms was around a week ago. Patient complains of her speech sounding abnormal. Patient also complains of paresthesias and feeling like her face is melting off. Paresthesias are mostly in the left side of her face as well as somewhat throughout her body. No weakness. No confusion. No headache. Blood work completed in ED reveals a WBC of 13, hemoglobin of 13.6 and platelet count of 522, sodium 134 9, potassium 4.4, BUNs/creatinine at 34/1.38, blood glucose of 134 CT of the brain completed in ED is negative for any acute intracranial abnormality Chest x-ray does not reveal any acute pulmonary process EKG: Right axis. Nonspecific ST-T. Inferior T wave inversion.), sinus rhythm, normal QRS Patient has been admitted for further neurology evaluation Review of Systems REVIEW OF SYSTEMS: CONSTITUTIONAL: No fever, no malaise, no fatigue. HEENT: No recent visual problems or hearing problems. Denied any sore throat. CARDIOVASCULAR: No chest pain, orthopnea, PND, no palpitations, no syncope. PULMONARY: No shortness of breath, no cough, no hemoptysis. GASTROINTESTINAL: No diarrhea, no nausea, no vomiting, no abdominal pain. NEUROLOGICAL: No headaches, no weakness, no numbness. HEMATOLOGICAL: Denies any bleeding or petechiae. GENITOURINARY: Denies any burning micturition, frequency, or urgency. MUSCULOSKELETAL/RHEUMATOLOGICAL: Denies any joint pain, swelling, or any muscle pain. ENDOCRINE: Denies any polyuria or polydipsia. The rest of the 14-point review of systems is negative. Past Medical History Past Medical History: Coronary Artery Disease (CAD), Chest Pain / Angina, Hearing Disorder / Deafness, Hyperlipidemia, Hypertension, Myocardial Infarction (ID), Osteoarthritis (OA), Pneumonia, Renal Disease Additional Past Medical History / Comment(s): MIs in , occasional L leg edema since CABG with L leg vein harvesting, recurrent nephrolithiasis with surgical removal, past utis, arthritis bilateral hands and L knee, deaf L ear. Last Myocardial Infarction Date:: 04/15/18 History of Any Multi-Drug Resistant Organisms: None Reported Past Surgical History: Adenoidectomy, Section, Cholecystectomy, Coronar y Bypass/CABG, Heart Catheterization, Heart Catheterization With Stent, Hysterectomy, Tonsillectomy, Tubal Ligation Additional Past Surgical History / Comment(s): 11/2014 CABG 5 vessels at [facility], PCIs with a total of 6 or 7 stents at [facility], lithotripsies x 3, colonoscopy-normal, bilateral knee arthroscopies, Past Anesthesia/Blood Transfusion Reactions: Motion Sickness, No Reported Reaction Date of Last Stent Placement:: unkn Past Psychological History: Anxiety Smoking Status: Former smoker Past Alcohol Use History: None Reported Past Drug Use History: Marijuana - Past Family History Father History Unknown: Yes Additional Family Medical History / Comment(s): Patient does not know anything about her father and has no contact with him. Mother Family Medical History: Cancer, Congestive Heart Failure (CHF), Dementia, Diabetes Mellitus, Fibromyalgia, Skin Disorder Additional Family Medical History / Comment(s): Mother is alive at age 73 with history of Obesity, stasis dermatitis, breast cancer with bilateral mastectomies. Son(s) Additional Family Medical History / Comment(s): Patient has one son with no major medical problems. Patient does not have any brothers or sisters. Medications and Allergies Home Medications Medication Instructions Recorded Confirmed Type ALPRAZolam [Xanax] 0.5 mg PO HS PRN 04/15/18 01/29/25 History Aspirin 81 mg PO DAILY chew 05/08/18 01/29/25 Rx Furosemide [Lasix] 20 mg PO DAILY 06/09/19 01/29/25 History Metoprolol Tartrate [Lopressor] 100 mg PO BID 06/09/19 01/29/25 History traMADol HCl [Ultram] 50 mg PO W/SUPPER 06/09/19 01/29/25 History Atorvastatin [Lipitor] 80 mg PO HS 03/15/21 01/29/25 History amLODIPine [Norvasc] 5 mg PO BID-W/MEALS 03/15/21 01/29/25 History Albuterol Inhaler [Ventolin Hfa 2 puff INHALATION RT-Q6H PRN 01/29/25 01/29/25 History Inhaler] Baclofen 10 mg PO TID PRN 01/29/25 01/29/25 History Citalopram Hydrobromide [CeleXA] 40 mg PO W/SUPPER 01/29/25 01/29/25 History Dicyclomine [Bentyl] 10 mg PO BID-W/MEALS 01/29/25 01/29/25 History Donepezil [Aricept] 10 mg PO HS 01/29/25 01/29/25 History Ezetimibe [Zetia] 10 mg PO HS 01/29/25 01/29/25 History Fluticasone Nasal [place] [Flonase 1 spray EA NOSTRIL DAILY PRN 01/29/25 01/29/25 History Nasal [place]] HYDROcodone/APAP 10-325MG [[place] 1 tab PO DAILY 01/29/25 01/29/25 History 10-325] Isosorbide Mononitrate ER [Imdur] 30 mg PO DAILY 01/29/25 01/29/25 History Memantine [Namenda] 10 mg PO BID 01/29/25 01/29/25 History Montelukast [Singulair] 10 mg PO HS 01/29/25 01/29/25 History Ondansetron Odt [Zofran Odt] 4 mg PO Q8H PRN 01/29/25 01/29/25 History hydrALAZINE HCL [Apresoline] 50 mg PO BID 01/29/25 01/29/25 History lisinopriL 40 mg PO DAILY 01/29/25 01/29/25 History Allergies Allergy/AdvReac Type Severity Reaction Status Date / Time clopidogrel [From Plavix] Allergy Severe Anaphylaxis Verified 01/29/25 14:04 sulfamethoxazole AdvReac Rash & Verified 01/29/25 14:04 [From Bactrim] Vomiting Tetracyclines AdvReac Nausea & Verified 01/29/25 14:04 Vomiting & Diarrhea trimethoprim [From Bactrim] AdvReac Rash & Verified 01/29/25 14:04 Vomiting wheat AdvReac Diarrhea Verified 01/29/25 14:04 Physical Exam Vitals: Vital Signs Temp Pulse Resp BP Pulse Ox 01/29/25 15:58 49 L 16 120/65 98 01/29/25 14:40 52 L 16 127/71 98 01/29/25 13:32 50 L 14 113/76 97 01/29/25 13:06 98.0 F 14 111/66 Intake and Output 03/15/25 03/15/25 03/15/25 06:59 14:59 22:59 Other: Weight 81.647 kg General appearance: alert, in no apparent distress Head exam: Present: normocephalic Eye exam: Present: normal appearance, PERRL, EOMI ENT exam: Present: normal oropharynx Neck exam: Present: normal inspection Respiratory exam: Present: normal lung sounds bilaterally Cardiovascular Exam: Present: regular rate, normal rhythm GI/Abdominal exam: Present: soft. Absent: tenderness Extremities exam: Present: normal inspection. Absent: pedal edema, calf tenderness Neurological exam: Present: other ( dysarthria) Cranial nerves: EOM's Intact: Normal, Facial Sensation: Normal Sensory exam: Upper Extremity Light Touch: Normal, Lower Extremity Light Touch: Normal Motor strength exam: RUE: 5, LUE: 5, RLE: 5, LLE: 5 Motor Response: (6) obeys commands Psychiatric exam: Present: normal affect, normal mood Skin exam: Present: normal color Results CBC & Chem 7: 01/29/25 13:23 01/29/25 13:23 Labs: Abnormal Lab Results - Last 24 Hours (Table) 01/29/25 01/29/25 01/29/25 Range/Units 13:23 13:23 13:23 WBC 13.4 H (3.8-10.6) k/uL Plt Count 522 H (150-450) k/uL Neutrophils # 10.6 H (1.3-7.7) k/uL Chloride 109 H (98-107) mmol/L Carbon Dioxide 17 L (22-30) mmol/L BUN 34 H (7-17) mg/dL Creatinine 1.38 H (0.52-1.04) mg/dL Glucose 134 H (74-99) mg/dL Plasma Lactic Acid [place] 3.3 H* (0.7-2.0) mmol/L ALT 44 H (4-34) U/L Assessment and Plan Assessment: 1. Dysarthria/paresthesia -Patient reports symptom onset about a week ago -Workup completed in ED is unremarkable with CT of the head negative for any acute intracranial process -Patient is to be admitted to telemetry; neurochecks per protocol -Consult neurology for further evaluation 2. NICK; patient has been placed on IV fluids in form of normal saline at rate of 100 cc an hour; we will monitor strict DEJAN's, daily weights, renal function electrolytes; avoid nephrotoxins and hypotension; will consult nephrology if renal function continues to deteriorate 3. Hypertension; lisinopril 40 mg daily hydralazine 50 mg twice daily; ; metoprolol 100 mg twice daily 4. Hyperlipidemia; Zetia 10 mg nightly 5. Coronary artery disease/CHF -- Metoprolol 100 mg twice daily, Lipitor 80 mg p.o. nightly, Imdur 30 mg daily, Lasix 20 mg daily 6. Asthma; not in exacerbation; Singulair 10 mg daily; continue with home inhaler therapy 7. Anxiety/depression/dementia; continue with home dose of Celexa 40 mg daily; Aricept 10 mg p.o. nightly; Namenda 10 mg p.o. twice daily DVT prophylaxis; SCD/subcu heparin CODE STATUS; full code
--- NOTE | 2025-01-30 13:29 | P.PN ---
Subjective Progress Note Date: 01/30/25 59-year-old female, history of hypertension, hyperlipidemia, CAD/VA, osteoarthritis, chronic kidney disease, present to the emergency department with concerns for speech problems. Onset of symptoms was around a week ago. Patient complains of her speech sounding abnormal. Patient also complains of pares thesias and feeling like her face is melting off. Paresthesias are mostly in the left side of her face as well as somewhat throughout her body. No weakness. No confusion. No headache. Blood work completed in ED reveals a WBC of 13, hemoglobin of 13.6 and platelet count of 522, sodium 134 9, potassium 4.4, BUNs/creatinine at 34/1.38, blood glucose of 134 CT of the brain completed in ED is negative for any acute intracranial abnormality Chest x-ray does not reveal any acute pulmonary process EKG: Right axis. Nonspecific ST-T. Inferior T wave inversion.), sinus rhythm, normal QRS Patient has been admitted for further neurology evaluation Objective - Vital Signs Vital signs: Vital Signs Temp 97.9 F 01/30/25 07:43 Pulse 65 01/30/25 07:43 Resp 18 01/30/25 07:43 BP 150/79 01/30/25 07:43 Pulse Ox 97 01/30/25 07:43 FiO2 Intake & Output 01/29/25 01/30/25 01/30/25 18:59 06:59 18:59 Weight 81.647 kg - Exam General appearance: alert, in no apparent distress Head exam: Present: normocephalic Eye exam: Present: normal appearance, PERRL, EOMI ENT exam: Present: normal oropharynx Neck exam: Present: normal inspection Respiratory exam: Present: normal lung sounds bilaterally Cardiovascular Exam: Present: regular rate, normal rhythm GI/Abdominal exam: Present: soft. Absent: tenderness Extremities exam: Present: normal inspection. Absent: pedal edema, calf tenderness Neurological exam: Present: other ( dysarthria) Psychiatric exam: Present: normal affect, normal mood Skin exam: Present: normal color - Labs CBC & Chem 7: 01/29/25 13:23 01/29/25 13:23 Labs: Abnormal Lab Results - Last 24 Hours (Table) 01/29/25 01/29/25 01/29/25 Range/Units 13:23 13:23 13:23 WBC 13.4 H (3.8-10.6) k/uL Plt Count 522 H (150-450) k/uL Neutrophils # 10.6 H (1.3-7.7) k/uL Chloride 109 H (98-107) mmol/L Carbon Dioxide 17 L (22-30) mmol/L BUN 34 H (7-17) mg/dL Creatinine 1.38 H (0.52-1.04) mg/dL Glucose 134 H (74-99) mg/dL Plasma Lactic Acid [place] 3.3 H* (0.7-2.0) mmol/L ALT 44 H (4-34) U/L Triglycerides (0.00-149.00) mg/dL HDL Cholesterol (40.00-60.00) mg/dL 01/29/25 Range/Units 13:23 WBC (3.8-10.6) k/uL Plt Count (150-450) k/uL Neutrophils # (1.3-7.7) k/uL Chloride (98-107) mmol/L Carbon Dioxide (22-30) mmol/L BUN (7-17) mg/dL Creatinine (0.52-1.04) mg/dL Glucose (74-99) mg/dL Plasma Lactic Acid [place] (0.7-2.0) mmol/L ALT (4-34) U/L Triglycerides 160.00 H (0.00-149.00) mg/dL HDL Cholesterol 39.90 L (40.00-60.00) mg/dL Assessment and Plan Assessment: 1. Dysarthria/paresthesia -Patient reports symptom onset about a week ago -Workup completed in ED is unremarkable with CT of the head negative for any acute intracranial process -Patient is to be admitted to telemetry; neurochecks per protocol -Consult neurology for further evaluation 2. NICK; patient has been placed on IV fluids in form of normal saline at rate of 100 cc an hour; we will monitor strict DEJAN's, daily weights, renal function electrolytes; avoid nephrotoxins and hypotension; will consult nephrology if renal function continues to deteriorate 3. Hypertension; lisinopril 40 mg daily hydralazine 50 mg twice daily; ; metoprolol 100 mg twice daily 4. Hyperlipidemia; Zetia 10 mg nightly 5. Coronary artery disease/CHF -- Metoprolol 100 mg twice daily, Lipitor 80 mg p.o. nightly, Imdur 30 mg daily, Lasix 20 mg daily 6. Asthma; not in exacerbation; Singulair 10 mg daily; continue with home inhaler therapy 7. Anxiety/depression/dementia; continue with home dose of Celexa 40 mg daily; Aricept 10 mg p.o. nightly; Namenda 10 mg p.o. twice daily DVT prophylaxis; SCD/subcu heparin CODE STATUS; full code
[2025-01-30 13:39] LABS: Basophils # (A) 0.1 k/uL (0-0.2); Basophils % (A) 1 %; Eosinophils # (A) 0.5 k/uL (0-0.7); Eosinophils % (A) 5 %; HCT 41.3 % (34.0-46.0); HGB 12.8 gm/dL (11.4-16.0); Lymphocytes % (A) 20 %; MCH 28.9 pg (25.0-35.0); MCHC 30.9 g/dL (31.0-37.0); MCV 93.4 fL (80.0-100.0); Mean Platelet Volume 7.5; Monocytes # (A) 0.8 k/uL (0-1.0); Monocytes % (A) 8 %; Neutrophils # (A) 6.8 k/uL (1.3-7.7); Neutrophils % (A) 66 %; Platelet Count 463 k/uL (150-450); RBC 4.43 m/uL (3.80-5.40); RDW 14.5 % (11.5-15.5); WBC 10.3 k/uL (3.8-10.6)
[2025-01-30 13:52] LABS: African American GFR (CKD) 67 (>60 ml/min/1.73 sqM); Anion Gap 9 mmol/L; Blood Urea Nitrogen 26 mg/dL (7-17); Calcium 9.5 mg/dL (8.4-10.2); Carbon Dioxide 21 mmol/L (22-30); Chloride 107 mmol/L (98-107); Glucose 107 mg/dL (74-99); Non-African American GFR(CKD) 58 (>60 ml/min/1.73 sqM); Potassium 4.2 mmol/L (3.5-5.1); Sodium 137 mmol/L (137-145)
--- NOTE | 2025-01-30 15:51 | P.CNNES ---
History of Present Illness Consult date: 01/30/25 Reason for Consult: Dysarthria History of Present Illness: The patient is a 59-year-old female who is seen in neurologic consultation on January 30, 2025, in collaboration with Debbie Pedraza, via teleneurology. History is obtained from the patient as well as review of the chart. Patient reports that her symptoms began this past week. She says that her initial symptoms included numbness on the left side of her face and left side of her jamison dy. She reports a tingling numb sensation involving her left face and fingertips as well as low back legs and buttocks. She says that the difficulty with speech and swallowing occurred more recently and so she elected to come into the hospital. The patient reports in addition to the numbness starting first she began to feel what she calls "loopiness". When asked to further describe that she says that she feels "not really with it, just kind of out of it". She also reports having a headache involving the posterior aspect of her head. She says she has been having difficulty ambulating because of the abnormal sensation involving the left side of her low back and leg. The patient denies any history of similar symptoms. She denies changes in vision. The patient reports that her watches over her very closely, since she was recently discharged from another hospital, for markedly elevated blood pressure. The patient reports that she primarily spends most of her time in bed since this recent hospitalization. In the emergency department, CT scan of the brain was performed. There is no reported evidence of acute hemorrhage or infarct. Laboratory evaluation reveals a mildly elevated white blood cell count of 13.4. Hemoglobin normal. Carotid Doppler has also been performed. This is normal. Past Medical History Past Medical History: Coronary Artery Disease (CAD), Chest Pain / Angina, Hearing Disorder / Deafness, Hyperlipidemia, Hypertension, Myocardial Infarction (DC), Osteoarthritis (OA), Pneumonia, Renal Disease Additional Past Medical History / Comment(s): MIs in 2005/2014, occasional L leg edema since CABG with L leg vein harvesting, recurrent nephrolithiasis with surgical removal, past utis, arthritis bilateral hands and L knee, deaf L ear. Last Myocardial Infarction Date:: 04/15/18 History of Any Multi-Drug Resistant Organisms: None Reported Past Surgical History: Adenoidectomy, Section, Cholecystectomy, Coronary Bypass/CABG, Heart Catheterization, Heart Catheterization With Stent, Hysterectomy, Tonsillectomy, Tubal Ligation Additional Past Surgical History / Comment(s): 11/2014 CABG 5 vessels at [facility], PCIs with a total of 6 or 7 stents at [facility], lithotripsies x 3, colonoscopy-normal, bilateral knee arthroscopies, Past Anesthesia/Blood Transfusion Reactions: Motion Sickness, No Reported Reaction Date of Last Stent Placement:: unkn Past Psychological History: Anxiety Smoking Status: Former smoker Past Alcohol Use History: None Reported Past Drug Use History: Marijuana - Past Family History Father History Unknown: Yes Additional Family Medical History / Comment(s): Patient does not know anything about her father and has no contact with him. Mother Family Medical History: Cancer, Congestive Heart Failure (CHF), Dementia, Diabetes Mellitus, Fibromyalgia, Skin Disorder Additional Family Medical History / Comment(s): Mother is alive at age 73 with history of Obesity, stasis dermatitis, breast cancer with bilateral mastectomies. Son(s) Additional Family Medical History / Comment(s): Patient has one son with no major medical problems. Patient does not have any brothers or sisters. Medications and Allergies Home Medications Medication Instructions Recorded Confirmed Type ALPRAZolam [Xanax] 0.5 mg PO HS PRN 04/15/18 01/29/25 History Aspirin 81 mg PO DAILY chew 05/08/18 01/29/25 Rx Furosemide [Lasix] 20 mg PO DAILY 06/09/19 01/29/25 History Metoprolol Tartrate [Lopressor] 100 mg PO BID 06/09/19 01/29/25 History traMADol HCl [Ultram] 50 mg PO W/SUPPER 06/09/19 01/29/25 History Atorvastatin [Lipitor] 80 mg PO HS 03/15/21 01/29/25 History amLODIPine [Norvasc] 5 mg PO BID-W/MEALS 03/15/21 01/29/25 History Albuterol Inhaler [Ventolin Hfa 2 puff INHALATION RT-Q6H PRN 01/29/25 01/29/25 History Inhaler] Baclofen 10 mg PO TID PRN 01/29/25 01/29/25 History Citalopram Hydrobromide [CeleXA] 40 mg PO W/SUPPER 01/29/25 01/29/25 History Dicyclomine [Bentyl] 10 mg PO BID-W/MEALS 01/29/25 01/29/25 History Donepezil [Aricept] 10 mg PO HS 01/29/25 01/29/25 History Ezetimibe [Zetia] 10 mg PO HS 01/29/25 01/29/25 History Fluticasone Nasal [place] [Flonase 1 spray EA NOSTRIL DAILY PRN 01/29/25 01/29/25 History Nasal [place]] HYDROcodone/APAP 10-325MG [[place] 1 tab PO DAILY 01/29/25 01/29/25 History 10-325] Isosorbide Mononitrate ER [Imdur] 30 mg PO DAILY 01/29/25 01/29/25 History Memantine [Namenda] 10 mg PO BID 01/29/25 01/29/25 History Montelukast [Singulair] 10 mg PO HS 01/29/25 01/29/25 History Ondansetron Odt [Zofran Odt] 4 mg PO Q8H PRN 01/29/25 01/29/25 History hydrALAZINE HCL [Apresoline] 50 mg PO BID 01/29/25 01/29/25 History lisinopriL 40 mg PO DAILY 01/29/25 01/29/25 History Allergies Allergy/AdvReac Type Severity Reaction Status Date / Time clopidogrel [From Plavix] Allergy Severe Anaphylaxis Verified 01/29/25 14:04 sulfamethoxazole AdvReac Rash & Verified 01/29/25 14:04 [From Bactrim] Vomiting Tetracyclines AdvReac Nausea & Verified 01/29/25 14:04 Vomiting & Diarrhea trimethoprim [From Bactrim] AdvReac Rash & Verified 01/29/25 14:04 Vomiting wheat AdvReac Diarrhea Verified 01/29/25 14:04 Physical Examination - Vital Signs Vital Signs: Vital Signs Temp Pulse Resp BP Pulse Ox 01/30/25 07:43 97.9 F 65 18 150/79 97 01/30/25 03:58 98.4 F 65 16 162/78 95 01/30/25 00:11 75 16 110/62 97 01/29/25 22:00 60 16 101/64 95 01/29/25 21:02 61 16 138/66 97 01/29/25 19:57 62 16 124/67 99 01/29/25 19:43 99 01/29/25 18:12 98.0 F 53 L 15 132/73 99 01/29/25 17:02 76 16 125/61 97 01/29/25 15:58 49 L 16 120/65 98 01/29/25 14:40 52 L 16 127/71 98 01/29/25 13:32 50 L 14 113/76 97 01/29/25 13:06 98.0 F 14 111/66 General: The patient is reclining in the bed. Well-nourished, well-developed and in no acute distress. HEENT: Head is atraumatic, normocephalic. Fundus not visualized. There is no scleral icterus. Mucous membranes are moist. Neck: Supple without carotid bruits Heart: Regular rate and rhythm Lungs: Essentially clear to auscultation Extremities: Without edema Neurological examination Mental status: Patient is awake, alert and oriented x 3. The patient's speech is inconsistent. When attempting to use a one-word answer, the patient takes a deep breath and then forcibly says of the word. There is no dysarthria. When not answering longer questions and providing history, the patient's speech suddenly becomes very clear and noneffortful. Cranial nerves: Pupils are equal at 2 mm and reactive to light. Visual la are full to confrontation. Extraocular movements are intact. There is no nystagmus. Facial sensation is reportedly diminished in the left V2 distribution. There is no facial asymmetry. Hearing is diminished. Uvula and palate are midline. Shoulder shrug is symmetric. Tongue protrudes midline. Motor: Strength is 5/5 throughout. Sensation: The patient reports decreased sensation to light touch in the left V2 distribution, right proximal upper extremity and right distal lower extremity. There is no extinction with double simultaneous stimulation. Coordination: [id number] and rapid alternating movements are intact. There is no pronator drift. Zjaw-ed-rpml testing is intact. Deep tendon reflexes: 2+/4+ in the bilateral biceps, brachioradialis and patellar reflexes. Plantar responses are flexor bilaterally. Gait: Not assessed Results CT scan of the brain images have been personally viewed. I agree with the radiology report - Laboratory Findings CBC and BMP: 01/30/25 12:54 01/30/25 12:54 Abnormal Lab Findings: Abnormal Labs 01/29/25 01/29/25 01/29/25 13:23 13:23 13:23 WBC 13.4 H Plt Count 522 H Neutrophils # 10.6 H Chloride 109 H Carbon Dioxide 17 L BUN 34 H Creatinine 1.38 H Glucose 134 H Plasma Lactic Acid [place] 3.3 H* ALT 44 H Triglycerides HDL Cholesterol 01/29/25 13:23 WBC Plt Count Neutrophils # Chloride Carbon Dioxide BUN Creatinine Glucose Plasma Lactic Acid [place] ALT Triglycerides 160.00 H HDL Cholesterol 39.90 L Assessment and Plan Assessment: 1. The patient is a 59-year-old female presents to the emergency department with reported left-sided numbness, tingling and difficulty with speech. The patient's examination is inconsistent. The patient's speech is pattern is not organic. The patient does certainly have numerous stroke risk factors: Diabetes mellitus, heart disease, hypercholesterolemia 2. Hypertension 3. Coronary artery disease 4. Hyperlipidemia 5. Hearing deficit 6. Reported memory loss Plan: 1. MRI of the brain has been ordered to further delineate the possibility of cerebral ischemia, this is doubtful however 2. Speech therapy consultation regarding speech and swallowing 3. Continue blood pressure control 4. Further recommendations will be made following completion of the MRI Thank you for allowing us to participate in care of this patient Dr. Roque will assume neurologic coverage of this patient as of January 30, 2025 Time with Patient: Greater than 30 (70 minutes were spent caring for this patient today including, obtaining history, examining the patient, reviewing imaging, chart documentation, labs, placing orders and creating this note)
[2025-01-30] MEDS: HEPARIN SODIUM,PORCINE 5,000 UNIT/ML 1 ML VIAL SQ SCH (20:22)
[2025-01-30] MEDS: ALPRAZolam 0.5 MG TAB PO PRN (20:22)
[2025-01-31 08:25] VITALS: RESP 17
[2025-01-31 09:21] LABS: Blood Urea Nitrogen 22.1 mg/dL (9.0-27.0); Calcium 9.2 mg/dL (8.7-10.3); Carbon Dioxide 22.6 mmol/L (21.6-31.8); Chloride 110 mmol/L (96-109); Glucose 92 mg/dL (70-110); Potassium 4.4 mmol/L (3.5-5.5); Sodium 143 mmol/L (135-145)
[2025-01-31] MEDS: ASPIRIN 81 MG PO SCH (09:29)
--- NOTE | 2025-01-31 11:28 | CA ---
Transthoracic Echo Report Name: Pari Martinez Age: 59 Gender: F : 1965 Exam Date: 01/31/2025 08:11 Exam Location: [facility] Ht (in): 62 Wt (lb): 180 Ordering Physician: Leonard Pang DO Attending/Referring Phys: Member [employer] Holly Bowman RDCS Procedure CPT: Indications: Thrombus Cardiac Hx: Technical Quality: Technically difficult study Contrast 1: Definity Total Dose (mL): 3 Contrast 2: Total Dose (mL): MEASUREMENTS (Male / Female) Normal Values 2D ECHO LV Diastolic Diameter PLAX 4.8 cm 4.2 - 5.9 / 3.9 - 5.3 cm LV Systolic Diameter PLAX 2.9 cm IVS Diastolic Thickness 1.0 cm 0.6 - 1.0 / 0.6 - 0.9 cm LVPW Diastolic Thickness 1.2 cm 0.6 - 1.0 / 0.6 - 0.9 cm LV Relative Wall Thickness 0.4 LVOT Diameter 1.7 cm LV Diastolic Volume MOD BP 96.5 cm??? 67 - 155 / 56 - 104 cm??? LV Systolic Volume MOD BP 39.1 cm??? 22 - 58 / 19 - 49 cm??? LV Ejection Fraction MOD BP 59.5 % >= 55 % LV Cardiac Index MOD BP 1700.0 cm???/min???m??? LV Diastolic Volume MOD 4C 104.5 cm??? LV Systolic Volume MOD 4C 41.2 cm??? LV Ejection Fraction MOD 4C 60.6 % LV Cardiac Index MOD 4C 1875.9 cm???/min???m??? LV Diastolic Length 4C 8.5 cm LV Systolic Length 4C 7.1 cm LV Diastolic Volume MOD 2C 86.1 cm??? LV Systolic Volume MOD 2C 37.1 cm??? LV Ejection Fraction MOD 2C 57.0 % LV Cardiac Index MOD 2C 1453.0 cm???/min???m??? LV Diastolic Length 2C 8.1 cm LV Systolic Length 2C 7.1 cm LA Volume 51.7 cm??? 18 - 58 / 22 - 52 cm??? LA Volume Index 26.9 cm???/m??? 16 - 28 cm???/m??? M-MODE LV Diastolic Diameter MM 4.9 cm 4.2 - 5.9 / 3.9 - 5.3 cm LV Systolic Diameter MM 3.4 cm LV Cardiac Index MM Teich 1906.0 cm???/min???m??? IVS Diastolic Thickness MM 0.8 cm 0.6 - 1.0 / 0.6 - 0.9 cm LVPW Diastolic Thickness MM 1.0 cm 0.6 - 1.0 / 0.6 - 0.9 cm LV Relative Wall Thickness MM 0.4 0.24 - 0.42 / 0.22 - 0.42 LV Mass Index MM 83.8 g/m??? 49 - 115 / 43 - 95 g/m??? DOPPLER AV Peak Velocity 203.1 cm/s AV Peak Gradient 16.5 mmHg AV Mean Velocity 117.9 cm/s AV Mean Gradient 6.8 mmHg AV Velocity Time Integral 39.3 cm LVOT Peak Velocity 141.1 cm/s LVOT Peak Gradient 8.0 mmHg LVOT Velocity Time Integral 30.8 cm LVOT Stroke Volume 70.4 cm??? LVOT Stroke Volume Index 38.5 ml/m??? LVOT Cardiac Index 2084.7 cm???/min???m??? AV Area Cont Eq vti 1.8 cm??? AV Area Cont Eq pk 1.6 cm??? MV Area PHT 4.0 cm??? Mitral E Point Velocity 82.4 cm/s Mitral A Point Velocity 72.7 cm/s Mitral E to A Ratio 1.1 MV Deceleration Time 189.2 ms TR Peak Velocity 232.2 cm/s TR Peak Gradient 21.6 mmHg Right Atrial Pressure 5.0 mmHg Pulmonary Artery Systolic Pressu 26.6 mmHg Right Ventricular Systolic Press 26.6 mmHg FINDINGS Left Ventricle Left ventricular ejection fraction is estimated at 55-60 %. Mildly increased posterior wall thickness. Left ventricular cavity size normal. No obvious regional wall motion abnormalities. Right Ventricle Normal right ventricular size with mildly reduced function. Right ventricular systolic pressure within normal limits. Right Atrium Normal right atrial size. Left Atrium Normal left atrial size. Mitral Valve Structurally normal mitral valve. No evidence for mitral valve prolapse. Mild mitral regurgitation. No mitral stenosis. Aortic Valve Trileaflet aortic valve. No aortic valve stenosis or regurgitation. Tricuspid Valve Structurally normal tricuspid valve. No tricuspid stenosis. Trace to mild tricuspid regurgitation. Pulmonic Valve Structurally normal pulmonic valve. No pulmonic stenosis. Trace pulmonic regurgitation. Pericardium No pericardial effusion. Aorta Normal size aortic root and proximal ascending aorta. CONCLUSIONS Normal LV size and systolic function. Mild mitral and tricuspid regurgitation. No pericardial effusion. No pulmonary hypertension Previewed by: Dr. Rashard Acevedo MD (Electronically Signed) Final Date: 31 January 2025 11:27
--- NOTE | 2025-01-31 13:17 | P.PN ---
Subjective 59-year-old female, history of hypertension, hyperlipidemia, CAD/ID, osteoarthritis, chronic kidney disease, present to the emergency department with concerns for speech problems. Onset of symptoms was around a week ago. Patient complains of her speech sounding abnormal. Patient also complains of paresthesias and feeling like her face is melting off. Paresthesias are mostly in the left side of her face as well as somewhat throughout her body. No weakness. No confusion. No headache. Blood work completed in ED reveals a WBC of 13, hemoglobin of 13.6 and platelet count of 522, sodium 134 9, potassium 4.4, BUNs/creatinine at 34/1.38, blood glucose of 134 CT of the brain completed in ED is negative for any acute intracranial abnormality Chest x-ray does not reveal any acute pulmonary process EKG: Right axis. Nonspecific ST-T. Inferior T wave inversion.), sinus rhythm, normal QRS Patient has been admitted for further neurology evaluation 01/31 Her dysarthria improved, currently she is talking freely. Denied blurred vision. Had mild headache no dizziness no weakness or numbness Her numbness is improving but not completely resolved she still have mild numbness around her eye and small area in the left neck No other new complaint. MRI of the brain still pending which is going to be done later on this afternoon Echocardiogram: Showing ejection fraction preserved 55 to 60%. No pericardial effusion Currently she is kept on aspirin 81 mg, patient confirms to me she was taken this dose of aspirin at home 14 point system review were negative except what is mentioned above. Including no GI/ symptom. No chest pain or dyspnea patient denies smoking alcohol or illicit drugs Active Medications Generic Name Dose Route Start Last Admin Trade Name Mikaq PRN Reason Stop Dose Admin Hydrocodone Bitart/Acetaminophen 1 each 01/30/25 09:00 01/31/25 09:34 Hydrocodone/Apap 10-325mg 1 Each Tab PO 1 each DAILY KRISTEN Administration Albuterol Sulfate 2 puff 01/29/25 15:32 01/30/25 11:02 Albuterol Hfa Inhaler INHALATION 2 puff RT-Q6H PRN Administration Wheezing Alprazolam 0.5 mg 01/29/25 15:32 01/30/25 20:22 Alprazolam 0.5 Mg Tab PO 0.5 mg HS PRN Administration Anxiety Amlodipine Besylate 5 mg 01/29/25 17:30 01/31/25 09:27 Amlodipine 5 Mg Tab PO 5 mg BID-W/MEALS KRISTEN Administration Aspirin 325 mg 01/30/25 09:00 01/31/25 09:26 Aspirin 325 Mg Tab PO 325 mg DAILY KRISTEN Administration Aspirin 81 mg 01/31/25 09:00 01/31/25 09:29 Aspirin 81 Mg PO Not Given DAILY KRISTEN Atorvastatin Calcium 80 mg 01/29/25 21:00 01/30/25 20:22 Atorvastatin 80 Mg Tab PO 80 mg HS KRISTEN Administration Baclofen 10 mg 01/29/25 15:32 Baclofen 10 Mg Tab PO TID PRN muscle spasms Citalopram Hydrobromide 40 mg 01/29/25 17:30 01/30/25 18:37 Citalopram Hydrobromide 20 Mg Tab PO 40 mg W/SUPPER KRISTEN Administration Dicyclomine HCl 10 mg 01/29/25 17:30 01/31/25 09:27 Dicyclomine 10 Mg Cap PO 10 mg BID-W/MEALS KRISTEN Administration Donepezil HCl 10 mg 01/29/25 21:00 01/30/25 20:23 Donepezil 10 Mg Tab PO 10 mg HS KRISTEN Administration Ezetimibe 10 mg 01/29/25 21:00 01/30/25 20:22 Ezetimibe 10 Mg Tab PO 10 mg HS KRISTEN Administration Fluticasone Propionate 1 spray 01/29/25 15:32 Fluticasone Nasal 50mcg/[place] 16gm Btl EA NOSTRIL DAILY PRN Allergy Symptoms Furosemide 20 mg 01/30/25 09:00 01/31/25 09:27 Furosemide 20 Mg Tab PO 20 mg DAILY KRISTEN Administration Heparin Sodium (Porcine) 5,000 unit 01/30/25 21:00 01/31/25 09:29 Heparin Sodium,Porcine 5,000 Unit/Ml 1 Ml Vial SQ Not Given Q12HR KRISTEN Hydralazine HCl 50 mg 01/29/25 21:00 01/31/25 09:27 Hydralazine Hcl 50 Mg Tab PO 50 mg BID KRISTEN Administration Sodium Chloride 1,000 mls @ 100 mls/hr 01/29/25 15:45 01/31/25 09:28 Saline 0.9% IV 100 mls/hr .Q10H KRISTEN Administration Isosorbide Mononitrate 30 mg 01/30/25 09:00 01/31/25 09:27 Isosorbide Mononitrate Er 30 Mg Tab.Er.24h PO 30 mg DAILY KRISTEN Administration Lisinopril 40 mg 01/30/25 09:00 01/31/25 09:27 Lisinopril 20 Mg Tab PO 40 mg DAILY KRISTEN Administration Memantine 10 mg 01/29/25 21:00 01/31/25 09:27 Memantine 10 Mg Tab PO 10 mg BID KRISTEN Administration Metoprolol Tartrate 100 mg 01/29/25 21:00 01/31/25 09:28 Metoprolol Tartrate 50 Mg Tab PO 100 mg BID KRISTEN Administration Montelukast Sodium 10 mg 01/29/25 21:00 01/30/25 20:22 Montelukast 10 Mg Tab PO 10 mg HS KRISTEN Administration Ondansetron HCl 4 mg 01/29/25 15:32 Ondansetron Odt 4 Mg Tab PO Q8H PRN Nausea Tramadol HCl 50 mg 01/29/25 17:30 01/30/25 18:37 Tramadol 50 Mg Tab PO 50 mg W/SUPPER KRISTEN Administration Objective - Vital Signs Vital signs: Vital Signs Temp 97.9 F 01/31/25 07:00 Pulse 68 01/31/25 07:00 Resp 17 01/31/25 07:00 BP 116/72 01/31/25 07:00 Pulse Ox 98 01/31/25 07:00 FiO2 Intake & Output 01/30/25 01/31/25 01/31/25 18:59 06:59 18:59 Intake Total 118 Balance 118 Weight 81.647 kg Intake: Oral 118 Other: Voiding Method Toilet Toilet # Voids 3 - Labs CBC & Chem 7: 01/30/25 12:54 01/31/25 05:05 Labs: Abnormal Lab Results - Last 24 Hours (Table) 01/30/25 01/30/25 01/31/25 Range/Units 12:54 12:54 05:05 MCHC 30.9 L (31.0-37.0) g/dL Plt Count 463 H (150-450) k/uL Chloride 110 H (96-109) mmol/L Carbon Dioxide 21 L (22-30) mmol/L BUN 26 H (7-17) mg/dL Creatinine 1.07 H (0.52-1.04) mg/dL BUN/Creatinine Ratio 22.10 H (12.00-20.00) Ratio Glucose 107 H (74-99) mg/dL Assessment and Plan Assessment: 1. Dysarthria/paresthesia -Patient reports symptom onset about a week ago -Workup completed in ED is unremarkable with CT of the head negative for any acute intracranial process -Patient is to be admitted to telemetry; neurochecks per protocol -Consult neurology for further evaluation -Workup reviewed, MRI of the brain pending. Once cleared by neurologist patient may be considered for discharge which could be today and tomorrow Patient was instructed to follow-up with her neurologist, she said she already has appointment with her neurologist Dr. Minerva tapia in 2 weeks 2. NICK; patient has been placed on IV fluids in form of normal saline at rate of 100 cc an hour; we will monitor strict DEJAN's, daily weights, renal function electrolytes; avoid nephrotoxins and hypotension; will consult nephrology if renal function continues to deteriorate Resolved 3. Hypertension; lisinopril 40 mg daily hydralazine 50 mg twice daily; ; metoprolol 100 mg twice daily 4. Hyperlipidemia; Zetia 10 mg nightly 5. Coronary artery disease/CHF -- Metoprolol 100 mg twice daily, Lipitor 80 mg p.o. nightly, Imdur 30 mg daily, Lasix 20 mg daily 6. Asthma; not in exacerbation; Singulair 10 mg daily; continue with home inhaler therapy 7. Anxiety/depression/dementia; continue with home dose of Celexa 40 mg daily; Aricept 10 mg p.o. nightly; Namenda 10 mg p.o. twice daily DVT prophylaxis; SCD/subcu heparin CODE STATUS; full code
--- NOTE | 2025-01-31 15:25 | MR ---
EXAMINATION TYPE: MR brain wo con DATE OF EXAM: 01/31/2025 COMPARISON: CT brain 2 days ago HISTORY: dysarthria, possible CVA. TECHNIQUE: Multiplanar, multisequence imaging of the brain and brainstem is performed without IV cont rast. FINDINGS: Diffusion weighted images demonstrate no evidence of a recent infarct or other diffusion abnormality. There is mild to moderate ventricular and sulcal prominence with sulcal prominence greatest over the bilateral frontal lobes redemonstrated. No significant white matter signal abnormality. Midline structures demonstrate normal morphology. The craniocervical junction appears within normal limits. Normal vascular flow voids are present. The visualized sinuses are clear and the globes are i ntact. Susceptibility artifact right nasal region. IMPRESSION: No MRI evidence for a recent infarct. [facility], , 01/31/2025 3:23 PM
[2025-01-31 15:55] VITALS: BP 118/62; PULSE 65; TEMP 97.7
--- NOTE | 2025-01-31 17:15 | P.PN ---
Subjective Progress Note Date: 01/31/25 Patient initially seen by Dr. Garcia. Please refer to her note for details. Dr. Garcia feels patient speech is nonorganic. Her exam is inconsistent, however MRI brain was ordered. And is completing an outside. Patient states she is feeling fine now. Her symptoms resolved 5 AM this morning and she can speak in sentences. Her confusion has gone. She can speak words in sentences. Patient states she has history of smoking around 1 pack/day for 40+ years, quit 1 month ago. Just last 1 year prior to quitting, she was smoking half pack per day. Objective - Vital Signs Vital signs: Vital Signs Temp 97.7 F 01/31/25 15:00 Pulse 65 01/31/25 15:00 Resp 17 01/31/25 15:00 BP 118/62 01/31/25 15:00 Pulse Ox 98 01/31/25 15:00 FiO2 Intake & Output 01/30/25 01/31/25 01/31/25 18:59 06:59 18:59 Intake Total 118 Balance 118 Weight 81.647 kg Intake: Oral 118 Other: Voiding Method Toilet Toilet # Voids 3 2 # Bowel Movements 2 - Exam On examination of the patient's mental status, speech and language functions are normal. No aphasia or dysarthria. Patient can name and repeat very well. Cranial nerves are all normal. Visual la are full, face is symmetric and tongue protrudes to midline. Extraocular muscles intact. Muscle strength testing there is no pronator drift and the strength is normal in arms and legs. Sensory to touch is equal with no neglect. No ataxia for [id number] testing. Gait normal. - Labs CBC & Chem 7: 01/30/25 12:54 01/31/25 05:05 Labs: Abnormal Lab Results - Last 24 Hours (Table) 01/31/25 Range/Units 05:05 Chloride 110 H (96-109) mmol/L BUN/Creatinine Ratio 22.10 H (12.00-20.00) Ratio Assessment and Plan Assessment: 1. The patient is a 59-year-old female presents to the emergency department with reported left-sided numbness, tingling and difficulty with speech. The patient's examination is inconsistent. The patient's speech is pattern is not organic. The patient does certainly have numerous stroke risk factors: heart disease, hypercholesterolemia, and ex tobacco use. She stopped smoking a month ago. Possible TIA. 2. Hypertension 3. Coronary artery disease 4. Hyperlipidemia 5. Hearing deficit 6. Reported memory loss 7. Ex tobacco use Plan: 1. MRI of the brain without contrast was read as normal. No evidence of recent infarct. I personally reviewed MRI, agree with the findings. Very sporadic nonspecific white matter disease. 2. Speech therapy consultation regarding speech and swallowing 3. Continue blood pressure control 4. 2D echo revealed normal LV size and systolic function. Mild MR, TR. Left atrial size is normal. 5. Carotid Doppler revealed no hemodynamically significant stenosis. 6. Lipid panel with cholesterol 110, LDL 38, HDL 39 triglycerides 160. LDL well-controlled. Continue Lipitor 80 mg daily (home dose). 7. Check hemoglobin A1c 8. Patient was taking aspirin 81 mg daily. We will increase aspirin to 325 mg daily. Patient cannot take Plavix because of allergies. 9. Patient has stopped smoking a month ago. She should stay off smoking. 7. Neurologically clear for discharge. Addendum: Hemoglobin A1c 6.3, consistent with pre-diabetes. Recommend healthy lifestyles, exercise.
== END 2025-01-31 18:36 | disposition home or self-care (01) ==
LOC: EC 13:00 → 6NMEDSUR 15:31
PROVIDERS: ADMIT Internal Medicine; ATTEND Internal Medicine
DX: R20.0 Anesthesia of skin (principal); R20.2 Paresthesia of skin; R47.1 Dysarthria and anarthria; N17.9 Acute kidney failure, unspecified; I13.0 Hypertensive heart and chronic kidney disease with heart failure and stage 1 through stage 4 chronic kidney disease, or unspecified chronic kidney disease; I50.9 Heart failure, unspecified; N18.9 Chronic kidney disease, unspecified; I25.10 Atherosclerotic heart disease of native coronary artery without angina pectoris; E78.5 Hyperlipidemia, unspecified; H91.92 Unspecified hearing loss, left ear; F03.94 Unspecified dementia, unspecified severity, with anxiety; J45.909 Unspecified asthma, uncomplicated; F32.A Depression, unspecified; I25.2 Old myocardial infarction; Z87.891 Personal history of nicotine dependence; Z95.5 Presence of coronary angioplasty implant and graft; Z79.51 Long term (current) use of inhaled steroids; Z79.82 Long term (current) use of aspirin; Z79.899 Other long term (current) drug therapy; Z88.1 Allergy status to other antibiotic agents; Z88.2 Allergy status to sulfonamides
CPT/HCPCS: 96374; 99285; 36415; 94640; 94760; 93005; 93306; 92610; 92523; 80061; 80053; 80048 ×2; 83605; 83735; 85025 ×2; 81001; 87086; 83036; 84145; 71046; 93880; 70450; 70551; G0378 ×3; J2060; Q9957